=== PATIENT | male | born 1960 | race Caucasian/White ===

== ENCOUNTER 2020-04-10 14:18 | Outpatient (REF) | payer OTHER, SELFPAY ==
[2020-04-10 15:45] LABS: Creatinine Urine 82.85 mg/dL; Microalbum/Creatinine Ratio Ur 18.1 ug/mg cr
== END 2020-04-10 14:19 | disposition home or self-care (01) ==
LOC: HO.LNP 14:18
PROVIDERS: Visit Provider Family Medicine
DX: I10 Essential (primary) hypertension (principal)
CPT/HCPCS: 82043

== ENCOUNTER 2020-07-11 11:01 | Outpatient (REF) | payer OTHER, SELFPAY ==
[2020-07-11 12:11] LABS: Creatinine Urine 258.55 mg/dL; Microalbum/Creatinine Ratio Ur 5.8 ug/mg cr
== END 2020-07-11 11:02 | disposition home or self-care (01) ==
LOC: HO.LNP 11:01
PROVIDERS: Visit Provider Family Medicine
DX: E11.65 Type 2 diabetes mellitus with hyperglycemia (principal); I10 Essential (primary) hypertension
CPT/HCPCS: 82043

== ENCOUNTER 2021-05-26 10:40 | Outpatient (REF) | payer OTHER, SELFPAY ==
[2021-05-26 14:25] LABS: Estimated Average Glucose 166 mg/dL; Hemoglobin A1c % 7.4 %
== END 2021-05-26 10:41 | disposition home or self-care (01) ==
LOC: HO.WFDLDS 10:40
PROVIDERS: Visit Provider Family Medicine
DX: R73.01 Impaired fasting glucose (principal)
CPT/HCPCS: 36415; 83036

== ENCOUNTER 2022-05-20 10:18 | Outpatient (REF) | payer OTHER, SELFPAY ==
[2022-05-20 11:44] LABS: Alanine Aminotransferase 25 U/L (0-40); Albumin Level 4.3 g/dL (3.5-5.0); Alkaline Phosphatase 66 U/L (39-117); Anion Gap 14 (12-20); Aspartate Amino Transferase 19 U/L (5-37); Bilirubin Total 1.2 mg/dL (0.0-1.0); Blood Urea Nitrogen 13 mg/dL (9-16); Calcium 9.2 mg/dL (8.4-10.2); Carbon Dioxide 30 mmol/L (22-29); Chloride 102 mmol/L (96-108); Estimated Glomerular Filt Rate > 60; Glucose Fasting 102 mg/dL (60-99); Potassium 3.9 mmol/L (3.3-5.1); Sodium 142 mmol/L (135-145); Total Protein 6.3 g/dL (6.5-8.0)
== END 2022-05-20 10:19 | disposition home or self-care (01) ==
LOC: HO.WFDLDS 10:18
PROVIDERS: Visit Provider Family Medicine
DX: Z00.00 Encounter for general adult medical examination without abnormal findings (principal)
CPT/HCPCS: 36415; 80053

== ENCOUNTER 2022-12-01 09:25 | Outpatient (AMB) | payer OTHER, SELFPAY ==
--- NOTE | 2022-12-01 09:37 | MHC.PC.OV ---
Vital Signs 12/01/22 09:38 Height 6 ft 1 in Weight 292 lb 8 oz BMI 38.6 BP 150/80 H Blood Pressure Location Lt brachial Position Sitting Respiration 13 Pulse 87 Pulse Source Pulse Oximeter Temp 98.2 F Temp Source Temporal Artery Scan Pulse Oximetry (%) 99 Oxygen Delivery Method Room Air Intake Visit Reasons: f/u hypertension Intake Note: Patient is concerned about him not losing weight. Patient states that insurance will only cover 90 day supplies for his medication. Complaint Coordinator Required: No Accompanied by: Self / Same As Patient Allergies No Known Drug Allergies Allergy (Unknown, Verified 12/01/22 09:46) UNKNOWN Medication List - Last Reconciled 12/01/22 by Antonio Wang MD amlodipine 10 mg PO DAILY 30 days glipizide ER 10 mg PO DAILY 120 days insulin glargine (Lantus Solostar U-100 Insulin) 70 units (0.7 mL) subcut QPM 30 days lisinopril 40 mg (2 x 20 mg) PO DAILY 90 days omeprazole 20 mg PO DAILY pen needle, diabetic DX: E11.9 As directed 90 day supply Tobacco use date assessed: 12/01/22 Fall risk assessment: No Falls in past year Last assessed Fall Risk: 12/01/22 Dental Screening Dental Screen Date: 12/01/22 Did you have a dental visit in the last 12 months?: No Did you have a dental problem in the last 6 months where you did not have access to dental care?: No Was dental information given to patient?: Patient has dentist HPI f/u hypertension HPI Details 62 y/o male presents to f/u hypertension and diabetes. Blood pressure today 150/80. He is on amlodipine 10mg and lisinopril 40mg daily. A1c today 12/01/22 is 6.1%. He is on glipizide 10mg and insulin glargine 70 units. [facility] Surgical History History of anterior cruciate ligament surgery History of appendectomy History of surgery Family History (Updated 12/01/22 @ 09:51 by Lara Osorio MA) Father Myocardial infarction HTN (hypertension) CVD (cardiovascular disease) Mother CVD (cardiovascular disease) Brother HTN (hypertension) Diabetes mellitus Social History Housing: House Patient Tobacco Use Status: Never used Tobacco e-Cigarette/Vaping Use: Never Used Second Hand Smoke Exposure: No service: No Current occupational status: retired Cognitive needs: No Hearing needs: No Vision needs: Yes Review of Systems Const Denies chills, Denies fatigue, Denies fever(s), Denies headache(s) and Denies weakness ENT Denies dizziness and Denies headache(s) Card Denies chest pain, Denies lightheadedness, Denies dyspnea and Denies other (Palpitations) Resp Denies cough, Denies dyspnea, Denies wheezing and Denies other ( shortness of breath) Musc Denies numbness and Denies tingling Neuro Denies dizziness, Denies headache(s), Denies numbness, Denies tingling, Denies paresthesias and Denies weakness Psych Denies anxiety and Denies depression Endo Denies fatigue Aller/Immun Denies wheezing Physical exam (Primary Care) Vital Signs: Last Vital Signs Temp 98.2 F 12/01/22 09:38 Pulse 87 12/01/22 09:38 Resp 13 12/01/22 09:38 BP 150/80 H 12/01/22 09:38 Pulse Ox 99 12/01/22 09:38 Oxygen Delivery Method Room Air 12/01/22 09:38 BMI result Body Mass Index 38.6 Tobacco/Smoking Status: Tobacco use Status Tobacco use date assessed 12/01/22 12/01/22 09:51 Patient Tobacco Use Status Never used Tobacco 12/01/22 09:51 e-Cigarette/Vaping Use Never Used 12/01/22 09:51 Const General: no acute distress and well developed Nutritional Appearance: well nourished Orientation/consciousness: patient oriented x3 HENMT Head: Yes normocephalic and Yes atraumatic Eyes General: appearance normal, both eyes and all related structures Pupils: Equal, round and reactive pupils present EOM: EOMs intact bilaterally Resp Effort & Inspection: normal respiratory effort Auscultation: clear to auscultation bilaterally Cardio Rate: regular rate Rhythm: regular rhythm Heart sounds: S1 normal heart sound present, S2 normal heart sound present, no gallops, no murmurs and no rubs Neuro General: patient oriented x3 and gait normal Cranial nerves: Yes Equal, round and reactive pupils present Psych Affect: normal affect Assessment and Plan Assessment & Plan (1) Essential hypertension: Code(s): I10 - Essential (primary) hypertension Plan: Blood pressure still poorly controlled. Goal is less than 140/90 Adding metoprolol ER 25 mg daily and continuing amlodipine and lisinopril; he had been on hydrochlorothiazide but this caused palpitations. Encouraged weight loss through diet and exercise (2) Diabetes type 2, controlled: Code(s): E11.9 - Type 2 diabetes mellitus without complications Plan: A1c 6.1% is good control. Goal is less than 7.0% Continue glipizide and Lantus as prescribed Encouraged diabetic diet and weight loss (3) Obesity (BMI 30-39.9): Code(s): E66.9 - Obesity, unspecified Plan: Encouraged weight loss Encouraged decrease portion sizes and regular exercise at least 3-4 times per week. Orders: Orders AMB Hemoglobin A1c Today Z13.9 - Encounter for screening, unspecified Medications: New metoprolol succinate ER 25 mg PO DAILY 30 tabs 2RF 30 days Coding Level of Care Code Est Pt Level 4 (99541) Diagnoses Essential hypertension I10 Diabetes type 2, controlled E11.9 Obesity (BMI 30-39.9) E66.9
[2022-12-01 09:38] VITALS: BP 150/80; PULSE 87; RESP 13; TEMP 36.8; O2SAT 99; BMI 38.6
== END 2022-12-01 10:51 | disposition home or self-care (01) ==
PROVIDERS: Visit Provider Family Medicine
DX: E11.9 Type 2 diabetes mellitus without complications (principal)
CPT/HCPCS: 83036; 99214

== ENCOUNTER 2023-01-20 14:32 | Outpatient (AMB) | payer OTHER, SELFPAY ==
[2023-01-20 14:35] VITALS: BP 148/82; PULSE 71; O2SAT 96; BMI 37.9
--- NOTE | 2023-01-20 14:35 | A.OFFPC_ITS ---
Vital Signs 01/20/23 14:35 Height 6 ft 1 in Weight 287 lb BMI 37.9 BP 148/82 H Blood Pressure Location Lt brachial Pulse 71 Pulse Source Pulse Oximeter Pulse Oximetry (%) 96 Oxygen Delivery Method Room Air Intake Visit Reasons: f/u hypertension Intake Note: Patient is here for follow up on hypertension. Allergies No Known Drug Allergies Allergy (Unknown, Verified 01/20/23 14:38) UNKNOWN Tobacco use date assessed: 01/20/23 Dental Screening Dental Screen Date: 01/20/23 Did you have a dental visit in the last 12 months?: No Did you have a dental problem in the last 6 months where you did not have access to dental care?: No Was dental information given to patient?: Patient has dentist HPI f/u hypertension HPI Details 62 y/o male presents to f/u hypertension. Had been on 3 medications but hydrochlorothiazide was discontinued due to palpitations. Continuing his amlodipine and lisinopril and adding metoprolol ER 25 mg daily. Blood pressure today 148/82. He is on amlodipine 10mg, lisinopril 40mg and meotprolol 25mg daily. He notes his pulse at home have been in the 60s. Pulse today 71. A1c today 01/20/23 is 6.7%. He is on glipizide 10mg and insulin glargine 70 units. Pt reports his has been noticing he has been more irritable. [facility] Surgical History History of anterior cruciate ligament surgery History of appendectomy History of surgery Family History (Updated 12/01/22 @ 09:51 by Lara Osorio MA) Father Myocardial infarction HTN (hypertension) CVD (cardiovascular disease) Mother CVD (cardiovascular disease) Brother HTN (hypertension) Diabetes mellitus Social History Housing: House Patient Tobacco Use Status: Never used Tobacco e-Cigarette/Vaping Use: Never Used Second Hand Smoke Exposure: No service: No Current occupational status: retired Cognitive needs: No Hearing needs: No Vision needs: Yes Questionnaire PHQ-9 Over the last 2 weeks, how often have you been bothered by any of the following problems? 1. Little interest or pleasure in doing things: more than half the days 2. Feeling down, depressed, or hopeless: not at all 3. Trouble falling or staying asleep, or sleeping too much: nearly every day 4. Feeling tired or having little energy: nearly every day 5. Poor appetite or overeating: nearly every day 6. Feeling bad about yourself - or that you are a failure or have let yourself or your family down: not at all 7. Trouble concentrating on things, such as reading the newspaper or watching television: nearly every day 8. Moving or speaking so slowly that other people could have noticed. Or the opposite - being so fidgety or restless that you have been moving around a lot more than usual: not at all 9. Thoughts that you would be better off or of hurting yourself in some way: not at all Total score: 14 Source: Developed by Drs. Alexis Morel, Selma Redman, Ray Villanueva and colleagues, with an educational bruno from [employer]. Thrive Questionnaire I am a: Patient What is your living situation today?: I have a steady place to live Within the past 12 months, did the food you bought not last and you didn't have the money to get more?: Never true Within the past 12 months, did you worry whether your food would run out before you got money to buy more?: Never true Do you have trouble paying for medicines?: No Do you have trouble getting transportation to medical appointments?: No Do you have trouble paying your heating and electricity bill?: No Do you have trouble taking care of your child, family member or friend?: No Do you have trouble with day-to-day activities such as bathing, preparing meals, shopping, managing finances, etc.?: Yes Are you currently unemployed and looking for a job?: No Are you interested in more education?: No AUDIT C Alcohol Use Questionnaire (AUDIT-C) 1. How often do you have a drink containing alcohol?: 2-3 times a week 2. How many drinks containing alcohol do you have on a typical day when you are drinking?: 3 or 4 3. How often do you have six or more drinks on one occasion?: Monthly Total Score: 6 SANG-7 AMB Questionnaire ASNG-7 Date SANG - 7 assessed: 01/20/23 Feeling nervous, anxious, or on edge: 0 = Not at all Not being able to stop or control worryin = Not at all Worrying too much about different things: 0 = Not at all Trouble relaxin = Not at all Being so restless that it is hard to sit still: 0 = Not at all Becoming easily annoyed or irritable: 1 = Several days Feeling afraid as if something awful might happen: 0 = Not at all Total SANG-7 score (0-4 normal; 5-9 mild; 10-14 moderate; 15-21 severe): 1 Source: Developed by Drs. Alexis Morel, Selma Redman, Ray Villanueva and colleagues, with an educational bruno from [employer]. Review of Systems Const Denies chills, Denies fatigue, Denies fever(s), Denies headache(s) and Denies weakness ENT Denies dizziness and Denies headache(s) Card Denies chest pain, Denies lightheadedness, Denies dyspnea and Denies other (Palpitations) Resp Denies cough, Denies dyspnea, Denies wheezing and Denies other ( shortness of breath) Musc Denies numbness and Denies tingling Neuro Denies dizziness, Denies headache(s), Denies numbness, Denies tingling, Denies p aresthesias and Denies weakness Psych Denies anxiety and Denies depression Endo Denies fatigue Aller/Immun Denies wheezing Physical exam (Primary Care) Vital Signs: Last Vital Signs Pulse 71 01/20/23 14:35 BP 148/82 H 01/20/23 14:35 Pulse Ox 96 01/20/23 14:35 Oxygen Delivery Method Room Air 01/20/23 14:35 BMI result Body Mass Index 37.9 Tobacco/Smoking Status: Tobacco use Status Tobacco use date assessed 01/20/23 01/20/23 14:39 Patient Tobacco Use Status Never used Tobacco 01/20/23 14:39 e-Cigarette/Vaping Use Never Used 01/20/23 14:39 PHQ-9: PHQ-9 Score PHQ-9: Total score 14 01/20/23 14:55 Const General: no acute distress and well developed Nutritional Appearance: well nourished Orientation/consciousness: patient oriented x3 HENMT Head: Yes normocephalic and Yes atraumatic Eyes General: appearance normal, both eyes and all related structures Pupils: Equal, round and reactive pupils present EOM: EOMs intact bilaterally Resp Effort & Inspection: normal respiratory effort Auscultation: clear to auscultation bilaterally Cardio Rate: regular rate Rhythm: regular rhythm Heart sounds: S1 normal heart sound present, S2 normal heart sound present, no gallops, no murmurs and no rubs Neuro General: patient oriented x3 and gait normal Cranial nerves: Yes Equal, round and reactive pupils present Psych Affect: normal affect Results AMB Hemoglobin A1c AMB Hemoglobin A1c 6.7 % Last Edit by Ena Serna CMA on 01/20/23 15:08 Assessment and Plan Assessment & Plan (1) Essential hypertension: Code(s): I10 - Essential (primary) hypertension Plan: Blood pressure is still poorly controlled. Goal is less than 140/90 Will increase metoprolol and continue lisinopril and amlodipine as prescribed Patient has symptoms of sleep apnea and this may be an underlying cause for his hypertension. (2) Diabetes type 2, controlled: Code(s): E11.9 - Type 2 diabetes mellitus without complications Plan: A1c crept up from 6.5-6.7%. Still at goal of less than 7.0% Continue current medication regimen Work at a diet lower in sugars and starches Encouraged exercise (3) Anxiety: Code(s): F41.9 - Anxiety disorder, unspecified Plan: Primarily irritability We discussed relaxation techniques and he can look these up on the Internet We discussed SSRI medications and he will research this and think about it Patient seems to have sleep apnea and this may be a cause of increased anxiety/irritability (4) Sleep apnea: Code(s): G47.30 - Sleep apnea, unspecified Plan: Witnessed apneic events and snoring. Also some changes in memory. Also daytime sleepiness and difficult to treat hypertension. Referred to Sleep Medicine (5) Obesity (BMI 30-39.9): Code(s): E66.9 - Obesity, unspecified Plan: Encouraged weight loss (6) Bilateral knee pain: Code(s): M25.561 - Pain in right knee; M25.562 - Pain in left knee Plan: Bilateral knee pain, left worse than right Patient notes this is longstanding and he has seen an operator specialist communications in the past Referred to Ortho Can use a brace on his left knee when he needs extra support such as during exercise Orders: Orders AMB Hemoglobin A1c Today Z13.9 - Encounter for screening, unspecified Referrals Sleep Medicine Referral G47.30 - Sleep apnea, unspecified Orthopedics Referral M25.561 - Pain in right knee, M25.562 - Pain in left knee Medications: Changed From metoprolol succinate ER 25 mg PO DAILY 30 days 30 tabs 2RF To metoprolol succinate ER 50 mg (2 x 25 mg) PO DAILY 60 tabs 2RF 30 days Coding Level of Care Code Est Pt Level 4 (64351) Diagnoses Essential hypertension I10 Diabetes type 2, controlled E11.9 Anxiety F41.9 Sleep apnea G47.30 Obesity (BMI 30-39.9) E66.9 Bilateral knee pain M25.561; M25.562
== END 2023-01-20 15:34 | disposition home or self-care (01) ==
PROVIDERS: PCP Family Medicine; Visit Provider Family Medicine
DX: I10 Essential (primary) hypertension (principal); E11.9 Type 2 diabetes mellitus without complications; E66.9 Obesity, unspecified; Z68.37 Body mass index [BMI] 37.0-37.9, adult; F41.9 Anxiety disorder, unspecified; G47.30 Sleep apnea, unspecified; M25.561 Pain in right knee; M25.562 Pain in left knee
CPT/HCPCS: 83036; 99214

== ENCOUNTER 2023-02-24 06:37 | Outpatient (REF) | payer OTHER, SELFPAY | END 2023-02-24 06:38 | disposition home or self-care (01) | LOC: HO.HOSX 06:37 | PROVIDERS: Visit Provider Orthopaedic Surgery | DX: M25.561 Pain in right knee (principal); M25.562 Pain in left knee | CPT/HCPCS: 73562 ==

== ENCOUNTER 2023-02-24 08:43 | Outpatient (AMB) | payer OTHER, SELFPAY ==
--- NOTE | 2023-02-24 08:50 | MHC.OFFVIS ---
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 Patient reports his left knee is worse than the right knee. He states having ongoing pain for many years. Patient reports having anterior cruciate ligament reconstructive surgery on his left knee [place] [address] Deleon. Approximately 10 years later he underwent left knee arthroscopic surgery. He states that his left knee will give out several times per day. He has had cortisone injections which gave him minimal relief. He also reports intermittent discomfort in his right knee. He denies any mechanical symptoms in his right knee. He has done physical therapy exercises which aggravated his symptoms. Allergies No Known Drug Allergies Allergy (Unknown, Verified 02/24/23 08:50) UNKNOWN Medication List - Last Reconciled 02/24/23 by Marlon Lara MD amlodipine 10 mg PO DAILY 30 days glipizide ER 10 mg PO DAILY 120 days insulin glargine (Lantus Solostar U-100 Insulin) 70 units (0.7 mL) subcut QPM 30 days lisinopril 40 mg (2 x 20 mg) PO DAILY 90 days metoprolol succinate ER 50 mg (2 x 25 mg) PO DAILY 30 days omeprazole 20 mg PO DAILY pen needle, diabetic DX: E11.9 As directed 90 day supply [facility] Surgical History History of anterior cruciate ligament surgery History of appendectomy History of surgery Family History (Updated 12/01/22 @ 09:51 by Lara Osorio MA) Father Myocardial infarction HTN (hypertension) CVD (cardiovascular disease) Mother CVD (cardiovascular disease) Brother HTN (hypertension) Diabetes mellitus Social History Housing: House Patient Tobacco Use Status: Never used Tobacco e-Cigarette/Vaping Use: Never Used Second Hand Smoke Exposure: No service: No Current occupational status: retired Cognitive needs: No Hearing needs: No Vision needs: Yes Physical Exam Vital Signs: BMI result Body Mass Index 37.9 Const Other: Well-nourished well-developed very friendly male awake alert and oriented x3 in no acute distress Extrem Other: Bilateral lower extremity examination shows good capillary refill, no skin lesions noted, normal sensation light touch Right knee examination shows a minimal effusion, minimal crepitus with range of motion, negative Maicol's test, no instability Left knee examination shows that the surgical incisions are well healed, no erythema, palpable crepitus with range of motion, pain with range of motion, range of motion from -3 degrees to 120 degrees, no instability Results Reviewed Results Reviewed: X-rays of the patient's right knee show mild diffuse joint space narrowing, no acute bony abnormalities X-rays of the patient's left knee show 1 screw in the distal femur and 1 screw in the proximal tibia consistent with his prior anterior cruciate ligament reconstructive surgery, moderate to severe medial joint space narrowing, subchondral sclerosis, no acute bony abnormalities Assessment & Plan Assessment & Plan (1) Right knee pain: Code(s): M25.561 - Pain in right knee Plan: Mr. Warren presents with left knee pain and mechanical symptoms due to degenerative joint disease. I had a lengthy discussion with the patient regarding the treatment options. The patient was fitted with a knee brace to help give him stability. I do find that the knee brace is a medical necessity to help prevent falls. The patient also has right knee discomfort most likely due to early degenerative joint disease. We will hold off on an injection at this time. Activity modifications were discussed at length with the patient. He will follow up with me on an as-needed basis should his symptoms not plateau at an unacceptable level over the next few months. Feel free to call me at any time should questions regarding his orthopedic management arise. Thank very much for asking me to see this very friendly gentleman. I spent 22 minutes in reviewing the patient's records and imaging studies, seeing the patient and documenting in the medical record. (2) Left knee pain: Code(s): M25.562 - Pain in left knee Orders: Orders XR knee RT 3V Today M25.561 - Pain in right knee XR knee LT 3V Today M25.562 - Pain in left knee Coding Level of Care Code New Pt Level 2 (76414) Diagnoses Right knee pain M25.561 Left knee pain M25.562
[2023-02-24 09:04] VITALS: BMI 37.9
== END 2023-02-24 09:24 | disposition home or self-care (01) ==
PROVIDERS: PCP Family Medicine; Visit Provider Orthopaedic Surgery
DX: M25.561 Pain in right knee (principal); M25.562 Pain in left knee
CPT/HCPCS: 99202

== ENCOUNTER 2023-02-25 09:19 | Outpatient (AMB) | payer OTHER, SELFPAY ==
--- NOTE | 2023-02-25 09:21 | MHC.PC.OV ---
Vital Signs 02/25/23 09:22 Height 6 ft 1 in Weight 292 lb 2 oz BMI 38.5 BP 140/78 H Blood Pressure Location Lt brachial Position Sitting Pulse 75 Pulse Source Pulse Oximeter Pulse Oximetry (%) 95 Oxygen Delivery Method Room Air Intake Visit Reasons: f/u hypertension Intake Note: Patient is following up on hypertension today. Patient is requesting refills on Lantus, lisinopril, and amlodipine, Metoprolol and Glipizide. Allergies No Known Drug Allergies Allergy (Unknown, Verified 02/25/23 09:26) UNKNOWN Tobacco use date assessed: 02/25/23 Last assessed Fall Risk: 02/25/23 Dental Screening Dental Screen Date: 02/25/23 Did you have a dental visit in the last 12 months?: No Did you have a dental problem in the last 6 months where you did not have access to dental care?: No Was dental information given to patient?: Patient has dentist HPI f/u hypertension HPI Details 62 y/o male presents to f/u hypertension. Blood pressure today 140/78. He is on lisinopril 40mg, amlodipine 10mg and metoprolol 50mg daily. Pt reports he describes his anxiety more as apathy. Pt reports ankle pain and would like a referral to orthopedics. [facility] Medical History (Updated 02/25/23 @ 10:23 by Tay Bhatti) Left ankle pain Surgical History History of surgery History of anterior cruciate ligament surgery History of appendectomy Family History Father Myocardial infarction HTN (hypertension) CVD (cardiovascular disease) Mother CVD (cardiovascular disease) Brother HTN (hypertension) Diabetes mellitus Social History Housing: House Patient Tobacco Use Status: Never used Tobacco e-Cigarette/Vaping Use: Never Used Second Hand Smoke Exposure: No service: No Current occupational status: retired Cognitive needs: No Hearing needs: No Vision needs: Yes Questionnaire SANG-7 AMB Questionnaire SANG-7 Date SANG - 7 assessed: 01/20/23 Source: Developed by Drs. Alexis Morel, Selma B.W. Ray Redman and colleagues, with an educational bruno from [employer]. Review of Systems Const Denies chills, Denies fatigue, Denies fever(s), Denies headache(s) and Denies weakness ENT Denies dizziness and Denies headache(s) Card Denies dyspnea Resp Denies cough, Denies dyspnea, Denies wheezing and Denies other (shortness of breath) Musc Denies numbness and Denies tingling Neuro Denies dizziness, Denies headache(s), Denies numbness, Denies tingling and Denies weakness Psych Denies anxiety and Denies depression Endo Denies fatigue Aller/Immun Denies wheezing Physical exam (Primary Care) Vital Signs: Last Vital Signs Pulse 75 02/25/23 09:22 BP 140/78 H 02/25/23 09:22 Pulse Ox 95 02/25/23 09:22 Oxygen Delivery Method Room Air 02/25/23 09:22 BMI result Body Mass Index 38.5 Tobacco/Smoking Status: Tobacco use Status Tobacco use date assessed 02/25/23 02/25/23 09:36 Patient Tobacco Use Status Never used Tobacco 02/25/23 09:26 e-Cigarette/Vaping Use Never Used 02/25/23 09:26 Const General: well developed; No acute distress Nutritional Appearance: obese Orientation/consciousness: patient oriented x3 HENMT Head: Yes normocephalic and Yes atraumatic Eyes General: appearance normal, both eyes and all related structures Pupils: Equal, round and reactive pupils present EOM: EOMs intact bilaterally Resp Effort & Inspection: normal respiratory effort Neuro General: patient oriented x3 and gait normal Cranial nerves: Yes Equal, round and reactive pupils present Psych Affect: normal affect Assessment and Plan Assessment & Plan (1) Essential hypertension: Code(s): I10 - Essential (primary) hypertension Plan: Blood?pressure?is?still?too?high.??Goal?is?less?than?140/90 Increase?metoprolol?from?50?mg?daily?to?75?mg?daily. (2) Anxiety: Code(s): F41.9 - Anxiety disorder, unspecified Plan: Patient?has?some?anxiety?and?possibly?some?depression. Encouraged?exercise?and?activities?outside?of?his?home We?can?follow-up?on?this (3) Sleep apnea: Code(s): G47.30 - Sleep apnea, unspecified Plan: Has?an?appointment?in?mid?March?with?sleep?medicine Follow-up?with?sleep?medicine (4) Left ankle pain: Code(s): M25.572 - Pain in left ankle and joints of left foot Plan: History?of?arthritis?and?bilateral?knee?pain. Now?has?left?ankle?pain?and?would?like?a?referral?to?Ortho Referral?made Orders: Referrals Orthopedics Referral M25.572 - Pain in left ankle and joints of left foot Medications: Changed From metoprolol succinate ER 50 mg (2 x 25 mg) PO DAILY 30 days 60 tabs 2RF To metoprolol succinate ER 75 mg (3 x 25 mg) PO DAILY 90 tabs 2RF 30 days Coding Level of Care Code Est Pt Level 4 (25731) Diagnoses Essential hypertension I10 Anxiety F41.9 Sleep apnea G47.30 Left ankle pain M25.572
[2023-02-25 09:22] VITALS: BP 140/78; PULSE 75; O2SAT 95; BMI 38.5
== END 2023-02-25 10:27 | disposition home or self-care (01) ==
PROVIDERS: PCP Family Medicine; Visit Provider Family Medicine
DX: I10 Essential (primary) hypertension (principal); F41.9 Anxiety disorder, unspecified; G47.30 Sleep apnea, unspecified; M25.572 Pain in left ankle and joints of left foot
CPT/HCPCS: 99214

== ENCOUNTER 2023-06-28 09:26 | Outpatient (AMB) | payer MEDICARE, SELFPAY ==
[2023-06-28 09:36] VITALS: BP 162/77; PULSE 86; O2SAT 96; BMI 38.4
--- NOTE | 2023-06-28 09:36 | A.OFFPC_ITS ---
Vital Signs 06/28/23 09:36 Height 6 ft 2 in Weight 299 lb 8 oz BMI 38.4 BP 162/77 H Blood Pressure Location Lt brachial Position Sitting Pulse 86 Pulse Source Pulse Oximeter Pulse Oximetry (%) 96 Oxygen Delivery Method Room Air Intake Visit Reasons: f/u hypertension Intake Note: Patient is here for follow up on hypertension, and A1C. Allergies No Known Drug Allergies Allergy (Unknown, Verified 06/28/23 09:38) UNKNOWN Medication List - Last Reconciled 06/28/23 by Antonio Wang MD amlodipine 10 mg PO DAILY 90 days glipizide ER 10 mg PO DAILY 90 days insulin glargine (Lantus Solostar U-100 Insulin) 70 units (0.7 mL) subcut QPM 90 days lisinopril 40 mg (2 x 20 mg) PO DAILY 90 days metoprolol succinate ER 75 mg (3 x 25 mg) PO DAILY 90 days omeprazole 20 mg PO DAILY 30 days pen needle, diabetic DX: E11.9 As directed 90 day supply Tobacco use date assessed: 06/28/23 Fall risk assessment: No Falls in past year Last assessed Fall Risk: 06/28/23 Dental Screening Dental Screen Date: 06/28/23 Did you have a dental visit in the last 12 months?: No Did you have a dental problem in the last 6 months where you did not have access to dental care?: No Was dental information given to patient?: Patient has dentist HPI f/u hypertension HPI Details 43 y/o male presents to f/u hypertension . Increased his metoprolol from 50mg daily to 75mg daily. Blood pressure today 162/77. He is on amlodipine 10mg, lisinopril 40mg, metoprolol 75mg daily. A1c today 06/28/23 7.5%. He is on glipizide 10mg, insulin glargine 70 units. [facility] Medical History Left ankle pain Surgical History History of surgery History of anterior cruciate ligament surgery History of appendectomy Family History Father Myocardial infarction HTN (hypertension) CVD (cardiovascular disease) Mother CVD (cardiovascular disease) Brother HTN (hypertension) Diabetes mellitus Social History Housing: House Patient Tobacco Use Status: Never used Tobacco e-Cigarette/Vaping Use: Never Used Second Hand Smoke Exposure: No service: No Current occupational status: retired Cognitive needs: No Hearing needs: No Vision needs: Yes Questionnaire PHQ-9 Over the last 2 weeks, how often have you been bothered by any of the following problems? 1. Little interest or pleasure in doing things: several days 2. Feeling down, depressed, or hopeless: not at all 3. Trouble falling or staying asleep, or sleeping too much: nearly every day 4. Feeling tired or having little energy: nearly every day 5. Poor appetite or overeating: nearly every day 6. Feeling bad about yourself - or that you are a failure or have let yourself or your family down: not at all 7. Trouble concentrating on things, such as reading the newspaper or watching television: several days 8. Moving or speaking so slowly that other people could have noticed. Or the opposite - being so fidgety or restless that you have been moving around a lot more than usual: not at all 9. Thoughts that you would be better off or of hurting yourself in some way: not at all Total score: 11 Source: Developed by Drs. Alexis Morel, Selma Redman, Ray Villanueva and colleagues, with an educational bruno from [employer]. Thrive Questionnaire Date Thrive assessed: 06/28/23 I am a: Patient What is your living situation today?: I have a steady place to live Within the past 12 months, did the food you bought not last and you didn't have the money to get more?: Never true Within the past 12 months, did you worry whether your food would run out before you got money to buy more?: Never true Do you have trouble paying for medicines?: No Do you have trouble getting transportation to medical appointments?: No Do you have trouble paying your heating and electricity bill?: No Do you have trouble taking care of your child, family member or friend?: No Do you have trouble with day-to-day activities such as bathing, preparing meals, shopping, managing finances, etc.?: No Are you currently unemployed and looking for a job?: No Are you interested in more education?: No THRIVE Score: 0 AUDIT C Alcohol Use Questionnaire (AUDIT-C) 1. How often do you have a drink containing alcohol?: 2-3 times a week 2. How many drinks containing alcohol do you have on a typical day when you are drinking?: 7 to 9 3. How often do you have six or more drinks on one occasion?: Weekly Total Score: 9 SANG-7 AMB Questionnaire SANG-7 Date SANG - 7 assessed: 06/28/23 Feeling nervous, anxious, or on edge: 0 = Not at all Not being able to stop or control worryin = Not at all Worrying too much about different things: 0 = Not at all Trouble relaxin = Not at all Being so restless that it is hard to sit still: 0 = Not at all Becoming easily annoyed or irritable: 0 = Not at all Feeling afraid as if something awful might happen: 0 = Not at all Total SANG-7 score (0-4 normal; 5-9 mild; 10-14 moderate; 15-21 severe): 0 Source: Developed by Drs. Alexis Morel, Selma Redman, Ray Villanueva and colleagues, with an educational bruno from [employer]. Review of Systems Const Denies chills, Denies fatigue, Denies fever(s), Denies headache(s) and Denies weakness ENT Denies dizziness and Denies headache(s) Card Denies dyspnea Resp Denies cough, Denies dyspnea, Denies wheezing and Denies other (shortness of breath) Musc Denies numbness and Denies tingling Neuro Denies dizziness, Denies headache(s), Denies numbness, Denies tingling and Denies weakness Psych Denies anxiety and Denies depression Endo Denies fatigue Aller/Immun Denies wheezing Physical exam (Primary Care) Vital Signs: Last Vital Signs Pulse 86 06/28/23 09:36 BP 162/77 H 06/28/23 09:36 Pulse Ox 96 06/28/23 09:36 Oxygen Delivery Method Room Air 06/28/23 09:36 BMI result Body Mass Index 38.4 Tobacco/Smoking Status: Tobacco use Status Tobacco use date assessed 06/28/23 06/28/23 09:47 Patient Tobacco Use Status Never used Tobacco 06/28/23 09:37 e-Cigarette/Vaping Use Never Used 06/28/23 09:37 PHQ-9: PHQ-9 Score PHQ-9: Total score 11 06/28/23 09:47 Thrive Assessment: Date of Thrive Assessment Date Thrive assessed 06/28/23 06/28/23 09:47 Const General: well developed; No acute distress Nutritional Appearance: well nourished Orientation/consciousness: patient oriented x3 HENMT Head: Yes normocephalic and Yes atraumatic Eyes General: appearance normal, both eyes and all related structures Pupils: Equal, round and reactive pupils present EOM: EOMs intact bilaterally Resp Effort & Inspection: normal respiratory effort Neuro General: patient oriented x3 and gait normal Cranial nerves: Yes Equal, round and reactive pupils present Psych Affect: normal affect Assessment and Plan Assessment & Plan (1) Essential hypertension: Code(s): I10 - Essential (primary) hypertension Plan: There?is?too?high.??Patient?says?that?this?is?temporary?due?to?hav ing?some?drinks?last?night?which?affects?his?blood?pressure. We?discussed?that?his?blood?pressure?was?too?high?at?his?last?visit?also.??Decli isha?medication?changes?at?this?time. Had?tried?adding?hydro chlorothiazide?to?his?medication?regimen?but?this?caused?palpitations Could?consider?increasing?his?metoprolol?if?still?high. (2) Diabetes type 2, controlled: Code(s): E11.9 - Type 2 diabetes mellitus without complications Plan: Patient?is?taking?insulin?glargine?70?units?daily?as?well?as?glipizide. A1c?7.5?today. He?has?gained?considerable?weight?again He?declines?changes?to?his?medication?regimen?today He?wants?to?work?at?weight?loss?and?exercise. Strongly?encouraged?weight?loss?t hrough?diet,?decrease?portion?sizes?and?consistent?exercise. Has?follow-up?in?May We?discussed?that?if?his?blood?sugars?are?not?significantly?improved,?we?should? seriously?consider?a?adjusting?his?medication?regimen. (3) Bilateral knee pain: Code(s): M25.561 - Pain in right knee; M25.562 - Pain in left knee Plan: Patient?has?bilateral?knee?osteoarthritis,?left?worse?than?right. Difficulty?walking?more?than?200?ft?without?pain Will?give?him?a?handicap?placard.??If?this?continues?to?wors en,?will?discuss?using?a?cane Orders: Orders AMB Hemoglobin A1c Today Z13.9 - Encounter for screening, unspecified Coding Level of Care Code Est Pt Level 4 (63134) Diagnoses Essential hypertension I10 Diabetes type 2, controlled E11.9 Bilateral knee pain M25.561; M25.562
== END 2023-06-28 10:36 | disposition home or self-care (01) ==
PROVIDERS: PCP Family Medicine; Visit Provider Family Medicine
DX: I10 Essential (primary) hypertension (principal); E11.9 Type 2 diabetes mellitus without complications; M25.561 Pain in right knee; M25.562 Pain in left knee
CPT/HCPCS: 99214

== ENCOUNTER 2023-10-14 08:51 | Outpatient (AMB) | payer MEDICARE, SELFPAY ==
[2023-10-14 08:56] VITALS: BP 128/70; PULSE 78; O2SAT 97; BMI 38.4
--- NOTE | 2023-10-14 08:56 | MHC.PC.OV ---
Vital Signs 10/14/23 08:56 Height 6 ft 2 in Weight 299 lb BMI 38.4 BP 128/70 Blood Pressure Location Lt brachial Position Sitting Pulse 78 Pulse Source Pulse Oximeter Pulse Oximetry (%) 97 Oxygen Delivery Method Room Air Intake Visit Reasons: extended exam and labs Intake Note: Patient is here for extended exam and labs. He states he has has bilateral foot swelling, feels it may be Amlodipine. Allergies No Known Drug Allergies Allergy (Unknown, Verified 10/14/23 08:58) UNKNOWN Medication List - Last Reconciled 10/14/23 by Antonio Wang MD amlodipine 10 mg PO DAILY 90 days glipizide ER 10 mg PO DAILY 90 days insulin glargine (Lantus Solostar U-100 Insulin) 70 units (0.7 mL) subcut QPM 90 days lisinopril 40 mg (2 x 20 mg) PO DAILY 90 days metoprolol succinate ER 75 mg (3 x 25 mg) PO DAILY 90 days omeprazole 20 mg PO DAILY 30 days pen needle, diabetic DX: E11.9 As directed 90 day supply Tobacco use date assessed: 10/14/23 Fall risk assessment: No Falls in past year Last assessed Fall Risk: 10/14/23 Dental Screening Dental Screen Date: 10/14/23 Did you have a dental visit in the last 12 months?: No Did you have a dental problem in the last 6 months where you did not have access to dental care?: No Was dental information given to patient?: Patient has dentist HPI extended exam and labs HPI Details Patient?presents?for?extended?exam Had?been?concerned?about?his?blood?sugar?control?and?blood?pressure?control?at?last?visit. Today?blood?pressure?shows?good?control A1c?is?6.3%;?down?from?7.5% No?recent?labs PFSH Medical History Left ankle pain Surgical History History of surgery History of anterior cruciate ligament surgery History of appendectomy Family History Father Myocardial infarction HTN (hypertension) CVD (cardiovascular disease) Mother CVD (cardiovascular disease) Brother HTN (hypertension) Diabetes mellitus Son Substance abuse in family Social History Housing: House Patient Tobacco Use Status: Never used Tobacco e-Cigarette/Vaping Use: Never Used Second Hand Smoke Exposure: No service: No Current occupational status: retired Cognitive needs: No Hearing needs: No Vision needs: Yes Questionnaire Thrive Questionnaire Date Thrive assessed: 06/28/23 SANG-7 AMB Questionnaire SANG-7 Date SANG - 7 assessed: 06/28/23 Source: Developed by Drs. Alexis Morel, Selma Redman, Ray Villanueva and colleagues, with an educational bruno from [employer]. Review of Systems Neuro Denies Sensory deficit (Neuro) Physical exam (Primary Care) Vital Signs: Last Vital Signs Pulse 78 10/14/23 08:56 BP 128/70 10/14/23 08:56 Pulse Ox 97 10/14/23 08:56 Oxygen Delivery Method Room Air 10/14/23 08:56 BMI result Body Mass Index 38.4 Tobacco/Smoking Status: Tobacco use Status Tobacco use date assessed 10/14/23 10/14/23 09:03 Patient Tobacco Use Status Never used Tobacco 10/14/23 08:57 e-Cigarette/Vaping Use Never Used 10/14/23 08:57 Thrive Assessment: Date of Thrive Assessment Date Thrive assessed 06/28/23 10/14/23 08:57 Const General: no acute distress, well developed, alert and awake Nutritional Appearance: well nourished Orientation/consciousness: patient oriented x3 HENMT Head: Yes normocephalic and Yes atraumatic Ears: hearing grossly normal bilaterally and TM's normal bilaterally General nose exam: Normal external nose present and Normal nares present Mouth: Normal oral and palatal mucosa present and moist mucous membranes Teeth and gingiva: dentition normal Throat: Yes posterior oropharynx normal Eyes Pupils: Equal, round and reactive pupils present and Pupil accommodation reflex normal EOM: EOMs intact bilaterally Neck Neck: Yes normal visual inspection, Yes no lymphadenopathy and Yes trachea midline Thyroid: Thyroid normal Carotids: no bruits Lymphatic: no lymphadenopathy noted Chest Chest palpation & inspection: normal inspection of the chest Resp Effort & Inspection: normal respiratory effort Auscultation: clear to auscultation bilaterally Cardio Rate: regular rate Rhythm: regular rhythm Heart sounds: S1 normal heart sound present, S2 normal heart sound present, no gallops, no murmurs and no rubs Bruits: no abdominal aortic bruits and no carotid bruits GI Palpation (GI): No Abdominal aortic bruit present, Soft to palpation, nontender, No hepatosplenomegaly present and No Rebound tenderness present Auscultation: normal bowel sounds General: Yes no CVA tenderness Back/Spine/Pelvis Back: no CVA tenderness Cervical Spine: cervical ROM normal and No Cervical spine tenderness Thoracic/Lumbar Spine: thoraco-lumbar ROM normal, No pain with thoraco-lumbar ROM, No thoracic spinal tenderness and No lumbar spinal tenderness Skin Lesions: no lesions Rashes: no rashes Trauma: no lacerations or abrasions Wounds: no wounds Nails: normal Neuro General: patient oriented x3, gait normal and CN's II-XI intact bilaterally Cranial nerves: Yes Equal, round and reactive pupils present Cognition (Neuro): normal cognition Gait exam (Neuro): Normal gait present Motor exam (neuro): 5/5 motor strength present throughout Sensory Exam: No Sensory deficit (Neuro) Deep tendon reflexes (DTR's): Right patellar reflex intensity grade: 2+ and Left patellar reflex intensity grade: 2+ Extrem General: Yes normal to inspection and No edema Psych Appearance: grossly normal Affect: normal affect Attitude: cooperative Thought process: Normal thought process present Results AMB Hemoglobin A1c AMB Hemoglobin A1c 6.3 % Last Edit by Ena Serna CMA on 10/14/23 09:18 Results Reviewed Results Reviewed: Laboratory Last Values Hgb A1c (Clinic) 6.3 % (4.0-6.0) H 10/14/23 09:13 Assessment and Plan Assessment & Plan (1) Essential hypertension: Code(s): I10 - Essential (primary) hypertension Plan: Blood?pressure?is?well?controlled.??Goal?is?less?than?140/90 Continue?current?medications He?notes?mild?swelling?in?bilateral?feet?likely?from?amlodipine.??Advised?he?elevate?his?feet (2) Diabetes type 2, controlled: Code(s): E11.9 - Type 2 diabetes mellitus without complications Plan: A1c?6.3%?which?is?improved?from?7.5%?at?last?check.??Good?control.??Goal?is?less?than?7.0% Continue?current?medication?regimen Continue?diabetic?diet No?recent?eye?exam-will?refer (3) Obesity (BMI 30-39.9): Code(s): E66.9 - Obesity, unspecified Plan: Encouraged?decrease?portion?sizes?and?exercise Encouraged?weight?loss (4) Screening for prostate cancer: Code(s): Z12.5 - Encounter for screening for malignant neoplasm of prostate Plan: Check?PSA (5) Screening for colon cancer: Code(s): Z12.11 - Encounter for screening for malignant neoplasm of colon Plan: Patient?had?a?colonoscopy?at?age?53?any?says?this?was?normal.??He?declines?further?colonoscopies?but?agrees?to?a?Cologuard?test. Cologuard?test?or (6) Adult general medical exam: Code(s): Z00.00 - Encounter for general adult medical examination without abnormal findings Plan: 63-year-old?male?presents?for?an?extended?exam Encouraged?healthy?diet,?exercise?and?active?lifestyle Orders: Orders AMB Hemoglobin A1c Today Z13.9 - Encounter for screening, unspecified Complete Blood Count Auto Diff Today Z00.00 - Encounter for general adult medical examination without abnormal findings Lipid Panel Today Z00.00 - Encounter for general adult medical examination without abnormal findings Microalbumin, Random (w Creat) Today I10 - Essential (primary) hypertension TSH reflex Free T4 Today Z00.00 - Encounter for general adult medical examination without abnormal findings UA and rflx microscopic Today Z00.00 - Encounter for general adult medical examination without abnormal findings Prostate Specific Antigen Scr Today Z12.5 - Encounter for screening for malignant neoplasm of prostate Comprehensive [place]. Panel Fast Today Z00.00 - Encounter for general adult medical examination without abnormal findings Referrals Ophthalmology Referral E11.9 - Type 2 diabetes mellitus without complications Cologuard Test Z12.11 - Encounter for screening for malignant neoplasm of colon, Z12.12 - Encounter for screening for malignant neoplasm of rectum Coding Level of Care Code Est Pt Prev Care >65y(64043) Diagnoses Essential hypertension I10 Diabetes type 2, controlled E11.9 Obesity (BMI 30-39.9) E66.9 Screening for prostate cancer Z12.5 Screening for colon cancer Z12.11 Adult general medical exam Z00.00
== END 2023-10-14 10:14 | disposition home or self-care (01) ==
PROVIDERS: PCP Family Medicine; Visit Provider Family Medicine
DX: I10 Essential (primary) hypertension (principal); E11.9 Type 2 diabetes mellitus without complications; Z68.38 Body mass index [BMI] 38.0-38.9, adult; E66.9 Obesity, unspecified; Z12.5 Encounter for screening for malignant neoplasm of prostate; Z12.11 Encounter for screening for malignant neoplasm of colon
CPT/HCPCS: 83036; 99214

== ENCOUNTER 2023-10-14 09:59 | Outpatient (REF) | payer MEDICARE, SELFPAY ==
[2023-10-14 11:43] LABS: Appearance Urine Clear; Color Urine Yellow; Glucose Urine UA Negative (Negative); Leukocyte Esterase Urine Negative (Negative); Nitrite Urine Negative (Negative); PH 5.5 (5.0-9.0); Urine Blood Negative (Negative); Urine Ketones Negative (Negative); Urine Protein Negative (Neg-Trace)
[2023-10-14 11:48] LABS: MANUAL DIFF FLAG NO
[2023-10-14 11:54] LABS: Basophils Percent Auto 0.4 % (0-2); Eosinophils Absolute Auto 0.2 X10*3/uL (0.0-0.4); Eosinophils Percent Auto 2.5 % (0-4); Hematocrit 45.6 % (42.0-52.0); Hemoglobin 15.8 g/dl (14.0-18.0); Imm Gran Abs Auto 0.04 X10*3/uL (0.00-0.03); Imm Gran Pct Auto 0.5 % (0.0-0.4); Lymphocytes Absolute Auto 1.3 X10*3/uL (1.2-4.9); Lymphocytes Percent Auto 17.5 % (20-40); Mean Corpuscular HGB Conc 34.6 g/dl (31.0-36.0); Mean Corpuscular Hemoglobin 30.8 pg (27.0-33.0); Mean Corpuscular Volume 88.9 fL (80.0-98.0); Mean Platelet Volume 10.3 fL (9.4-12.4); Monocytes Absolute Auto 0.7 X10*3/uL (0.1-1.2); Neutrophils Absolute Auto 5.4 x10*3/uL (2.0-8.3); Neutrophils Percent Auto 70.1 % (45-73); Platelet Count 207 X10*3/uL (160-400); Red Blood Count 5.13 X10*6/uL (4.60-5.80); Red Cell Distribution Width 12.8 % (11.0-16.0); White Blood Count 7.7 X10*3/uL (4.8-10.8)
[2023-10-14 12:42] LABS: Alanine Aminotransferase 22 U/L (0-40); Albumin Level 4.3 g/dL (3.5-5.0); Alkaline Phosphatase 77 U/L (39-117); Anion Gap 11 (12-20); Aspartate Amino Transferase 16 U/L (5-37); Bilirubin Total 0.8 mg/dL (0.0-1.0); Blood Urea Nitrogen 13 mg/dL (9-16); Calcium 9.6 mg/dL (8.4-10.2); Carbon Dioxide 29 mmol/L (22-29); Chloride 108 mmol/L (96-108); Cholesterol 206 mg/dL (<200); Estimated Glomerular Filt Rate > 60; Glucose Fasting 162 mg/dL (60-99); HDL Cholesterol 46 mg/dL (>40); LDL Cholesterol Calculated 139 mg/dL (<100); Potassium 4.2 mmol/L (3.3-5.1); Sodium 144 mmol/L (135-145); Total Protein 6.8 g/dL (6.5-8.0); Triglycerides 107 mg/dL (<150)
[2023-10-14 12:46] LABS: Creatinine Urine 142.95 mg/dL; Microalbum/Creatinine Ratio Ur 20.9 ug/mg cr (<30)
[2023-10-14 12:59] LABS: TSH reflex Free T4 1.61 uIU/mL (0.32-4.0)
== END 2023-10-14 10:00 | disposition home or self-care (01) ==
LOC: HO.WFDLDS 09:59
PROVIDERS: Visit Provider Family Medicine
DX: Z00.00 Encounter for general adult medical examination without abnormal findings (principal); I10 Essential (primary) hypertension; Z12.5 Encounter for screening for malignant neoplasm of prostate
CPT/HCPCS: 36415; 80053; 80061; 81003; 82043; 82570; 84153; 84443; 85025

== ENCOUNTER 2023-11-16 15:16 | Outpatient (AMB) | payer MEDICARE, SELFPAY ==
[2023-11-16 15:28] VITALS: BP 128/78; PULSE 70; O2SAT 94; BMI 38.5
--- NOTE | 2023-11-16 15:28 | MHC.PC.OV ---
Vital Signs 11/16/23 15:28 Height 6 ft 2 in Weight 300 lb BMI 38.5 BP 128/78 Blood Pressure Location Lt brachial Position Sitting Pulse 70 Pulse Source Pulse Oximeter Pulse Oximetry (%) 94 Oxygen Delivery Method Room Air Intake Visit Reasons: Follow-up?CPE-labs Telemed Intake Note: Patient is here for follow up on labs, he got Cologard results, and would like a copy. Allergies No Known Drug Allergies Allergy (Unknown, Verified 11/16/23 15:34) UNKNOWN Medication List - Last Reconciled 11/16/23 by Antonio Wang MD amlodipine 10 mg PO DAILY 90 days glipizide ER 10 mg PO DAILY 90 days insulin glargine (Lantus Solostar U-100 Insulin) 70 units (0.7 mL) subcut QPM 90 days lisinopril 40 mg (2 x 20 mg) PO DAILY 90 days metoprolol succinate ER 75 mg (3 x 25 mg) PO DAILY 90 days omeprazole 20 mg PO DAILY 30 days pen needle, diabetic DX: E11.9 As directed 90 day supply Tobacco use date assessed: 10/14/23 Dental Screening Dental Screen Date: 10/14/23 HPI Follow-up?CPE-labs Telemed HPI Details 63 y/o male presents to f/u CPE-labs. Blood pressure today 128/78. He is on lisinopril 40mg, amlodipine 10mg, metoprolol 75mg daily. Labs were drawn 10/14/23. Reviewed labs with pt. A1c 6.3%. He is on insulin glargine 70 units, glipizide 10mg daily. Triglycerides 107. TC 206. LDL 139. HDL 46. PSA 1.70. Recent cologuard test negative. [facility] Medical History Left ankle pain Surgical History History of surgery History of anterior cruciate ligament surgery History of appendectomy Family History Father Myocardial infarction HTN (hypertension) CVD (cardiovascular disease) Mother CVD (cardiovascular disease) Brother HTN (hypertension) Diabetes mellitus Son Substance abuse in family Social History (Reviewed 10/14/23 @ 09:03 by MINA Osuna Housing: House Patient Tobacco Use Status: Never used Tobacco e-Cigarette/Vaping Use: Never Used Second Hand Smoke Exposure: No service: No Current occupational status: retired Cognitive needs: No Hearing needs: No Vision needs: Yes Questionnaire Thrive Questionnaire Date Thrive assessed: 06/28/23 SANG-7 AMB Questionnaire SANG-7 Date SANG - 7 assessed: 06/28/23 Source: Developed by Drs. Alexis Morel, Selma Redman, Ray Villanueva and colleagues, with an educational bruno from [employer]. Review of Systems Const Denies chills, Denies fatigue, Denies fever(s), Denies headache(s) and Denies weakness ENT Denies dizziness and Denies headache(s) Card Denies dyspnea Resp Denies cough, Denies dyspnea, Denies wheezing and Denies other (shortness of breath) Musc Denies numbness and Denies tingling Neuro Denies dizziness, Denies headache(s), Denies numbness, Denies tingling and Denies weakness Psych Denies anxiety and Denies depression Endo Denies fatigue Aller/Immun Denies wheezing Physical exam (Primary Care) Vital Signs: Last Vital Signs Pulse 70 11/16/23 15:28 BP 128/78 11/16/23 15:28 Pulse Ox 94 11/16/23 15:28 Oxygen Delivery Method Room Air 11/16/23 15:28 BMI result Body Mass Index 38.5 Tobacco/Smoking Status: Tobacco use Status Tobacco use date assessed 10/14/23 11/16/23 15:30 Patient Tobacco Use Status Never used Tobacco 11/16/23 15:30 e-Cigarette/Vaping Use Never Used 11/16/23 15:30 Thrive Assessment: Date of Thrive Assessment Date Thrive assessed 06/28/23 11/16/23 15:30 Const General: well developed; No acute distress Nutritional Appearance: well nourished and obese Orientation/consciousness: patient oriented x3 HENMT Head: Yes normocephalic and Yes atraumatic Eyes General: appearance normal, both eyes and all related structures Pupils: Equal, round and reactive pupils present EOM: EOMs intact bilaterally Resp Effort & Inspection: normal respiratory effort Auscultation: clear to auscultation bilaterally Cardio Rate: regular rate Rhythm: regular rhythm Heart sounds: S1 normal heart sound present, S2 normal heart sound present, no gallops, no murmurs and no rubs Neuro General: patient oriented x3 and gait normal Cranial nerves: Yes Equal, round and reactive pupils present Psych Affect: normal affect Assessment and Plan Assessment & Plan (1) Essential hypertension: Code(s): I10 - Essential (primary) hypertension Plan: Blood?pressure?is?controlled.??Goal?is?less?than?140/90 Continue?current?medication (2) Diabetes type 2, controlled: Code(s): E11.9 - Type 2 diabetes mellitus without complications Plan: A1c?6.3%?is?good?control.??Goal?is?less?than?7.0% Fasting?blood?sugars?are?somewhat?higher Encouraged?more?exercise?and?diet?lower?in?sugars?and?starches No?medication?changes?made?today (3) Screening for prostate cancer: Code(s): Z12.5 - Encounter for screening for malignant neoplasm of prostate Plan: PSA?is?within?normal?range Will?continue?annual?screen (4) Hypercholesterolemia: Code(s): E78.00 - Pure hypercholesterolemia, unspecified Plan: LDL?cholesterol?is?too?high? Discussed?statin?medications?but?patient?is?opposed?them Discussed?Zetia?and?lifestyle?changes?including?decreasing?red?meat?and?butter?in?diet Encouraged?weight?loss?and?more?exercise Will?have?patient?make?these?changes?and?recheck?labs?prior?to?his?next?visit (5) Screening for colon cancer: Code(s): Z12.11 - Encounter for screening for malignant neoplasm of colon Plan: Cologuard?test?was?negative Will?screen?every?3?year (6) Left ankle swelling: Code(s): M25.472 - Effusion, left ankle Plan: Overuse?injury. Patient?walked?long?distances?with?a?heavy?pack?on?his?back Encouraged?ice?and?elevation Orders: Orders Lipid Panel Today E78.00 - Pure hypercholesterolemia, unspecified, Z00.00 - Encounter for general adult medical examination without abnormal findings Comprehensive [place]. Panel Fast Today E78.00 - Pure hypercholesterolemia, unspecified, Z00.00 - Encounter for general adult medical examination without abnormal findings Hemoglobin A1c Today E11.9 - Type 2 diabetes mellitus without complications, R73.01 - Impaired fasting glucose Coding Level of Care Code Est Pt Level 4 (15268) Diagnoses Essential hypertension I10 Diabetes type 2, controlled E11.9 Screening for prostate cancer Z12.5 Hypercholesterolemia E78.00 Screening for colon cancer Z12.11 Left ankle swelling M25.472
== END 2023-11-16 16:06 | disposition home or self-care (01) ==
PROVIDERS: PCP Family Medicine; Visit Provider Family Medicine
DX: I10 Essential (primary) hypertension (principal); E11.9 Type 2 diabetes mellitus without complications; Z12.5 Encounter for screening for malignant neoplasm of prostate; E78.00 Pure hypercholesterolemia, unspecified; Z12.11 Encounter for screening for malignant neoplasm of colon; M25.472 Effusion, left ankle
CPT/HCPCS: 99214

== ENCOUNTER 2024-03-10 09:17 | Outpatient (AMB) | payer MEDICARE, SELFPAY ==
--- NOTE | 2024-03-10 09:26 | A.OFFPC_ITS ---
Vital Signs 03/10/24 09:34 Height 6 ft 2 in Weight 304 lb 4 oz BMI 39.1 BP 131/89 Blood Pressure Location Lt brachial Position Sitting Respiration 14 Pulse 98 Pulse Source Pulse Oximeter Temp 97.7 F Temp Source Temporal Artery Scan Pulse Oximetry (%) 95 Oxygen Delivery Method Room Air Intake Visit Reasons: Follow-up diabetes and hypertension Intake Note: f/u HTN and DM h Allergies No Known Drug Allergies Allergy (Unknown, Verified 03/10/24 09:33) UNKNOWN Tobacco use date assessed: 10/14/23 Dental Screening Dental Screen Date: 10/14/23 HPI Follow-up diabetes and hypertension HPI Details 63 y/o male presents to f/u diabetes, hy pertension. Last A1c 11/16/23 6.3%. A1c today 03/10/24 7.2%. He is on insulin glargine 70 units, 10mg daily. He notes he had been drinking a sugary drink that contains about 30g of sugar. Denies any low blood sugar asides from a one time reading of a 67. Blood pressure today 131/89, 98p. He is on lisinopril 40mg, amlodipine 10mg, metoprolol 75mg daily. He reports daytime fatigue. [facility] Medical History Left ankle pain Surgical History History of surgery History of anterior cruciate ligament surgery History of appendectomy Family History Father Myocardial infarction HTN (hypertension) CVD (cardiovascular disease) Mother CVD (cardiovascular disease) Brother HTN (hypertension) Diabetes mellitus Son Substance abuse in family Social History Housing: House Patient Tobacco Use Status: Never used Tobacco e-Cigarette/Vaping Use: Never Used Second Hand Smoke Exposure: No service: No Current occupational status: retired Cognitive needs: No Hearing needs: No Vision needs: Yes Questionnaire PHQ-9 Over the last 2 weeks, how often have you been bothered by any of the following problems? 1. Little interest or pleasure in doing things: nearly every day 2. Feeling down, depressed, or hopeless: not at all 3. Trouble falling or staying asleep, or sleeping too much: nearly every day 4. Feeling tired or having little energy: nearly every day 5. Poor appetite or overeating: nearly every day 6. Feeling bad about yourself - or that you are a failure or have let yourself or your family down: not at all 7. Trouble concentrating on things, such as reading the newspaper or watching television: not at all 8. Moving or speaking so slowly that other people could have noticed. Or the opposite - being so fidgety or restless that you have been moving around a lot more than usual: nearly every day 9. Thoughts that you would be better off or of hurting yourself in some way: not at all Total score: 15 Source: Developed by Drs. Alexis Morel, Selma Redman, Ray Villanueva and colleagues, with an educational bruno from [employer]. Thrive Questionnaire Date Thrive assessed: 06/28/23 I am a: Patient What is your living situation today?: I have a steady place to live Within the past 12 months, did the food you bought not last and you didn't have the money to get more?: I choose not to answer this question Within the past 12 months, did you worry whether your food would run out before you got money to buy more?: Never true Do you have trouble paying for medicines?: No Do you have trouble getting transportation to medical appointments?: No Do you have trouble paying your heating and electricity bill?: No Do you have trouble taking care of your child, family member or friend?: No Do you have trouble with day-to-day activities such as bathing, preparing meals, shopping, managing finances, etc.?: No Are you currently unemployed and looking for a job?: No Are you interested in more education?: No Please select the resources that you would like help with: None Currently or been in a relationship where the following occur: I choose not to answer THRIVE Score: 0 AUDIT C Alcohol Use Questionnaire (AUDIT-C) 1. How often do you have a drink containing alcohol?: Never Total Score: 0 SANG-7 AMB Questionnaire SANG-7 Date SANG - 7 assessed: 06/28/23 Feeling nervous, anxious, or on edge: 0 = Not at all Not being able to stop or control worryin = Not at all Worrying too much about different things: 0 = Not at all Trouble relaxin = Not at all Being so restless that it is hard to sit still: 0 = Not at all Becoming easily annoyed or irritable: 0 = Not at all Feeling afraid as if something awful might happen: 0 = Not at all Total SANG-7 score (0-4 normal; 5-9 mild; 10-14 moderate; 15-21 severe): 0 Source: Developed by Drs. Alexis Morel, Selma Redman, Ray Villanueva and colleagues, with an educational bruno from [employer]. Review of Systems Const Denies chills, Denies fatigue, Denies fever(s), Denies headache(s) and Denies weakness ENT Denies dizziness and Denies headache(s) Card Denies dyspnea Resp Denies cough, Denies dyspnea, Denies wheezing and Denies other (shortness of breath) Musc Denies numbness and Denies tingling Neuro Denies dizziness, Denies headache(s), Denies numbness, Denies tingling and Denies weakness Psych Denies anxiety and Denies depression Endo Denies fatigue Aller/Immun Denies wheezing Physical exam (Primary Care) Vital Signs: Last Vital Signs Temp 97.7 F 03/10/24 09:34 Pulse 98 03/10/24 09:34 Resp 14 03/10/24 09:34 BP 131/89 03/10/24 09:34 Pulse Ox 95 03/10/24 09:34 Oxygen Delivery Method Room Air 03/10/24 09:34 BMI result Body Mass Index 39.1 Tobacco/Smoking Status: Tobacco use Status Tobacco use date assessed 10/14/23 03/10/24 09:28 Patient Tobacco Use Status Never used Tobacco 03/10/24 09:28 e-Cigarette/Vaping Use Never Used 03/10/24 09:28 PHQ-9: PHQ-9 Score PHQ-9: Total score 15 03/10/24 09:58 Thrive Assessment: Date of Thrive Assessment Date Thrive assessed 06/28/23 03/10/24 09:28 Currently or been in a relationship where the following occur: I choose not to answer Const General: well developed; No acute distress Nutritional Appearance: well nourished Orientation/consciousness: patient oriented x3 [facility] Head: Yes normocephalic and Yes atraumatic Eyes General: appearance normal, both eyes and all related structures Pupils: Equal, round and reactive pupils present EOM: EOMs intact bilaterally Resp Effort & Inspection: normal respiratory effort Auscultation: clear to auscultation bilaterally Cardio Rate: regular rate Rhythm: regular rhythm Heart sounds: S1 normal heart sound present, S2 normal heart sound present, no gallops, no murmurs and no rubs Neuro General: patient oriented x3 and gait normal Cranial nerves: Yes Equal, round and reactive pupils present Psych Affect: normal affect Coding Level of Care Code Est Pt Level 4 (36330) Diagnoses Essential hypertension I10 Diabetes type 2, controlled E11.9 Hypersomnolence G47.10 Assessment & Plan Assessment & Plan (1) Essential hypertension: Code(s): I10 - Essential (primary) hypertension Category: Medical Plan: Blood?pressure?is?controlled.??Goal?is?less?than?140/90 Continue?current?medications (2) Diabetes type 2, controlled: Code(s): E11.9 - Type 2 diabetes mellitus without complications Category: Medical Plan: A1c?7.2%?which?is?significantly?increased?from?prior?check?in?may. Goal?is?less?than?7.0% Patient?has?had?many?dietary?indiscretions.??Mild?weight?gain?as?well. He?will?work?on?a?diet?lower?in?sugars?and?starches.??Encoura ged?weight?loss?and?exercise. We?discussed?that?if?A1c?not?improved?at?next?visit?we?would?adjust?his?medicati on. (3) Hypersomnolence: Code(s): G47.10 - Hypersomnia, unspecified Category: Medical Plan: History?of?apneic?events?and?complaints?of?hypersomnolence Referred?back?to?Sleep?Medicine. Patient?had?been?resistant?regarding?checking?for?sleep?apnea?because?he?believe d?he?would?need?to?have?sleep?study?done?in?a?lab. Likely?will?be?able?to?do?this?at?home.??Patient?more?amenable?to?testing?now. Orders: Referrals Sleep Medicine Referral G47.10 - Hypersomnia, unspecified, G47.30 - Sleep apnea, unspecified Medications: Refilled amlodipine 10 mg PO DAILY 90 tabs 4RF 90 days omeprazole 20 mg PO DAILY 90 caps 4RF 90 days metoprolol succinate ER 75 mg (3 x 25 mg) PO DAILY 270 tabs 4RF 90 days lisinopril Take 2 tablets by mouth daily 40 mg (2 x 20 mg) PO DAILY 180 tabs 4RF 90 days
[2024-03-10 09:34] VITALS: BP 131/89; PULSE 98; RESP 14; TEMP 36.5; O2SAT 95; BMI 39.1
== END 2024-03-10 10:22 | disposition home or self-care (01) ==
PROVIDERS: PCP Family Medicine; Visit Provider Family Medicine
DX: I10 Essential (primary) hypertension (principal); E11.9 Type 2 diabetes mellitus without complications; G47.10 Hypersomnia, unspecified

== ENCOUNTER → 2024-03-10 09:17 | Outpatient (BNVA) | payer MEDICARE, SELFPAY | PROVIDERS: PCP Family Medicine; Visit Provider Family Medicine | DX: I10 Essential (primary) hypertension (principal); E11.9 Type 2 diabetes mellitus without complications; G47.10 Hypersomnia, unspecified; Z79.899 Other long term (current) drug therapy | CPT/HCPCS: 96127; 99212 ==

== ENCOUNTER 2024-07-07 13:13 | Outpatient (AMB) | payer MEDICARE, SELFPAY ==
--- NOTE | 2024-07-07 13:41 | MHC.PC.OV ---
Vital Signs 07/07/24 13:43 Height 6 ft 2 in Weight 304 lb 2 oz BMI 39.0 BP 116/70 Blood Pressure Location Lt brachial Position Sitting Respiration 14 Pulse 90 Pulse Source Pulse Oximeter Temp 99.4 F Temp Source Oral Pulse Oximetry (%) 97 Oxygen Delivery Method Room Air Intake Visit Reasons: f/u diabetes Intake Note: f/u dm Allergies No Known Drug Allergies Allergy (Unknown, Verified 07/07/24 13:42) UNKNOWN Medication List - Last Reconciled 07/07/24 by Antonio Wang MD amlodipine 10 mg PO DAILY 90 days glipizide ER 10 mg PO DAILY 90 days insulin glargine (Lantus Solostar U-100 Insulin) 75 units (0.75 mL) subcut QPM 30 days lisinopril 40 mg (2 x 20 mg) PO DAILY 90 days metoprolol succinate ER 75 mg (3 x 25 mg) PO DAILY 90 days omeprazole 20 mg PO DAILY 90 days pen needle, diabetic DX: E11.9 As directed one time per day 90 day supply Tobacco use date assessed: 10/14/23 Dental Screening Dental Screen Date: 10/14/23 HPI f/u diabetes HPI Details 64 y/o male presents to f/u diabetes. Last A1c 03/10/24 7.2%. He is on glipizide 10mg daily, insulin glargine 70 units. A1c today 8.1%. He notes he has not been watching his diet well recently. Has complaints of anxiety/depression. Has not seen sleep medicine yet. HPI Comments History of Present Illness Details Documentation assistance for Antonio Wang MD, was provided by Tay Bhatti,? Surgical Clinical Reviewer on 07/07/2024 at 2:01 PM VAM[facility]I. I, Dr. Wang, have read, observed, and verified documentation. ?? [facility] Medical History Left ankle pain Surgical History History of surgery History of anterior cruciate ligament surgery History of appendectomy Family History Father Myocardial infarction HTN (hypertension) CVD (cardiovascular disease) Mother CVD (cardiovascular disease) Brother HTN (hypertension) Diabetes mellitus Son Substance abuse in family Social History Housing: House Patient Tobacco Use Status: Never used Tobacco e-Cigarette/Vaping Use: Never Used Second Hand Smoke Exposure: No service: No Current occupational status: retired Cognitive needs: No Hearing needs: No Vision needs: Yes Questionnaire PHQ-9 Over the last 2 weeks, how often have you been bothered by any of the following problems? 4. Feeling tired or having little energy: nearly every day Source: Developed by Drs. Alexis Morel, Selma Redman, Ray Villanueva and colleagues, with an educational bruno from [employer]. Thrive Questionnaire Date Thrive assessed: 06/30/24 I am a: Patient What is your living situation today?: I choose not to answer this question Within the past 12 months, did the food you bought not last and you didn't have the money to get more?: I choose not to answer this question Within the past 12 months, did you worry whether your food would run out before you got money to buy more?: I choose not to answer this question Do you have trouble paying for medicines?: I choose not to answer this question Do you have trouble getting transportation to medical appointments?: I choose not to answer this question Do you have trouble paying your heating and electricity bill?: I choose not to answer this question Do you have trouble taking care of your child, family member or friend?: I choose not to answer this question Do you have trouble with day-to-day activities such as bathing, preparing meals, shopping, managing finances, etc.?: I choose not to answer this question Are you currently unemployed and looking for a job?: I choose not to answer this question Are you interested in more education?: I choose not to answer this question Please select the resources that you would like help with: None Currently or been in a relationship where the following occur: I choose not to answer THRIVE Score: 0 AUDIT C Alcohol Use Questionnaire (AUDIT-C) 1. How often do you have a drink containing alcohol?: 2-4 times a month 2. How many drinks containing alcohol do you have on a typical day when you are drinking?: 5 or 6 3. How often do you have six or more drinks on one occasion?: Monthly Total Score: 6 SANG-7 AMB Questionnaire SANG-7 Date SANG - 7 assessed: 06/28/23 Feeling nervous, anxious, or on edge: 0 = Not at all Not being able to stop or control worryin = Not at all Worrying too much about different things: 0 = Not at all Trouble relaxin = Not at all Being so restless that it is hard to sit still: 0 = Not at all Becoming easily annoyed or irritable: 1 = Several days Feeling afraid as if something awful might happen: 0 = Not at all Total SANG-7 score (0-4 normal; 5-9 mild; 10-14 moderate; 15-21 severe): 1 Source: Developed by Drs. Alexis Morel, Selma Redman, Ray Villanueva and colleagues, with an educational bruno from [employer]. Review of Systems Const Denies chills, Denies fatigue, Denies fever(s), Denies headache(s) and Denies weakness ENT Denies dizziness and Denies headache(s) Card Denies dyspnea Resp Denies cough, Denies dyspnea, Denies wheezing and Denies other (shortness of breath) Musc Denies numbness and Denies tingling Neuro Denies dizziness, Denies headache(s), Denies numbness, Denies tingling and Denies weakness Psych Reports anxiety and Reports depression Endo Denies fatigue Aller/Immun Denies wheezing Physical exam (Primary Care) Vital Signs: Last Vital Signs Temp 99.4 F 07/07/24 13:43 Pulse 90 07/07/24 13:43 Resp 14 07/07/24 13:43 BP 116/70 07/07/24 13:43 Pulse Ox 97 07/07/24 13:43 Oxygen Delivery Method Room Air 07/07/24 13:43 BMI result Body Mass Index 39.0 Tobacco/Smoking Status: Tobacco use Status Tobacco use date assessed 10/14/23 07/07/24 13:46 Patient Tobacco Use Status Never used Tobacco 07/07/24 13:46 e-Cigarette/Vaping Use Never Used 07/07/24 13:46 Thrive Assessment: Date of Thrive Assessment Date Thrive assessed 06/30/24 07/07/24 13:46 Currently or been in a relationship where the following occur: I choose not to answer Const General: well developed; No acute distress Nutritional Appearance: well nourished Orientation/consciousness: patient oriented x3 [facility] Head: Yes normocephalic and Yes atraumatic Eyes General: appearance normal, both eyes and all related structures Pupils: Equal, round and reactive pupils present EOM: EOMs intact bilaterally Resp Effort & Inspection: normal respiratory effort Neuro General: patient oriented x3 and gait normal Cranial nerves: Yes Equal, round and reactive pupils present Psych Affect: normal affect Coding Level of Care Code Est Pt Level 4 (90314) Diagnoses Diabetes type 2, controlled E11.9 Essential hypertension I10 Depression with anxiety F41.8 Sleep apnea G47.30 Assessment & Plan Assessment & Plan (1) Diabetes type 2, controlled: Code(s): E11.9 - Type 2 diabetes mellitus without complications Category: Medical Plan: A1c?8.1%.??Poor?and?worsening?control.??Goal?is?less?than?7.0% Patient?notes?significant?dietary?indiscretions Will?increase?Lantus?from?70?units?daily?to?75?units?daily Work?on?diet?lower?in?saturated?fats?and?cholesterol.??Work?on?weight?loss.??Work?on?exercise (2) Essential hypertension: Code(s): I10 - Essential (primary) hypertension Category: Medical Plan: Blood?pressure?is?controlled.??Goal?is?less?than?140/90 Continue?current?medication (3) Depression with anxiety: Code(s): F41.8 - Other specified anxiety disorders Category: Medical Plan: Difficulties?with?motivation Likely?some?depressed?mood?and?also?some?anxiety Start?fluoxetine?and?titrate?to?20?mg?daily Will?follow-up?in?a?couple?of?months Will?let?me?know?if?he?has?any?problems?with?this I?did?recommended?therapist?but?patient?declines?this?for?now. Encouraged?exercise (4) Sleep apnea: Code(s): G47.30 - Sleep apnea, unspecified Category: Medical Plan: Patient?did?not?follow?through?with?his?appointment?for?sleep?medicine?due?to?illness. Encouraged?him?to?set?up?the?appointment?and?follow?through Orders: Orders AMB Hemoglobin A1c Today E11.9 - Type 2 diabetes mellitus without complications Medications: New fluoxetine 20 mg PO DAILY 30 days 30 tabs 3RF Changed From insulin glargine (Lantus Solostar U-100 Insulin) 70 units (0.7 mL) subcut QPM 90 days 63 mL 0RF E11.65 - Type 2 diabetes mellitus with hyperglycemia To insulin glargine (Lantus Solostar U-100 Insulin) 75 units (0.75 mL) subcut QPM 30 days 24 mL 11RF E11.65 - Type 2 diabetes mellitus with hyperglycemia
[2024-07-07 13:43] VITALS: BP 116/70; PULSE 90; RESP 14; TEMP 37.4; O2SAT 97; BMI 39.0
== END 2024-07-07 14:28 | disposition home or self-care (01) ==
PROVIDERS: PCP Family Medicine; Visit Provider Family Medicine
DX: E11.9 Type 2 diabetes mellitus without complications (principal); I10 Essential (primary) hypertension; F41.8 Other specified anxiety disorders; G47.30 Sleep apnea, unspecified

== ENCOUNTER → 2024-07-07 13:13 | Outpatient (BNVA) | payer MEDICARE, SELFPAY | PROVIDERS: PCP Family Medicine; Visit Provider Family Medicine | DX: E11.9 Type 2 diabetes mellitus without complications (principal); I10 Essential (primary) hypertension; F41.8 Other specified anxiety disorders; G47.30 Sleep apnea, unspecified | CPT/HCPCS: 83036; 99212 ==

== ENCOUNTER 2024-09-08 13:00 | Outpatient (AMB) | payer MEDICARE, SELFPAY ==
--- NOTE | 2024-09-08 13:52 | MHC.PC.OV ---
Vital Signs 09/08/24 13:53 Height 6 ft 2 in Weight 298 lb BMI 38.3 BP 110/70 Blood Pressure Location Lt brachial Position Sitting Respiration 16 Pulse 98 Pulse Source Pulse Oximeter Temp 98.8 F Temp Source Oral Pulse Oximetry (%) 97 Oxygen Delivery Method Room Air Intake Visit Reasons: f/u diabete, HTN Intake Note: patient is scheduled for follow up dm Shareholder Required: No Allergies No Known Drug Allergies Allergy (Unknown, Verified 09/08/24 13:53) UNKNOWN Medication List - Last Reconciled 09/08/24 by Antonio Wang MD amlodipine 10 mg PO DAILY 90 days fluoxetine 20 mg PO DAILY 90 days glipizide ER 10 mg PO DAILY 90 days insulin glargine (Basaglar KwikPen U-100 Insulin) 75 units (0.75 mL) subcut QPM lisinopril 40 mg (2 x 20 mg) PO DAILY 90 days metoprolol succinate ER 75 mg (3 x 25 mg) PO DAILY 90 days omeprazole 20 mg PO DAILY 90 days pen needle, diabetic DX: E11.9 As directed one time per day 90 day supply Tobacco use date assessed: 10/14/23 Dental Screening Dental Screen Date: 10/14/23 HPI f/u diabete, HTN HPI Details 64 y/o male presents to f/u diabetes, HTN. A1c today 09/08/24 6.7%, improved from prior. He is on glipizide 10mg daily, insulin glargine 75 units. Blood pressure today 110/70, 98p. He is on amlodipine 10mg, lisinopril 40mg, metoprolol 75mg daily. HPI Comments History of Present Illness Details Documentation assistance for Antonio Wang MD, was provided by Tay Bhatti,? Electric Tool Repairer on 09/08/2024 at 1:56 PM EST. I, Dr. Wang, have read, observed, and verified documentation. ? PFSH Medical History Left ankle pain Surgical History History of surgery History of anterior cruciate ligament surgery History of appendectomy Family History Father Myocardial infarction HTN (hypertension) CVD (cardiovascular disease) Mother CVD (cardiovascular disease) Brother HTN (hypertension) Diabetes mellitus Son Substance abuse in family Social History (Reviewed 10/14/23 @ 09:03 by Ena Serna [facility]) Housing: House Patient Tobacco Use Status: Never used Tobacco e-Cigarette/Vaping Use: Never Used Second Hand Smoke Exposure: No service: No Current occupational status: retired Cognitive needs: No Hearing needs: No Vision needs: Yes Questionnaire PHQ-9 Over the last 2 weeks, how often have you been bothered by any of the following problems? 1. Little interest or pleasure in doing things: nearly every day 2. Feeling down, depressed, or hopeless: several days 5. Poor appetite or overeating: several days 6. Feeling bad about yourself - or that you are a failure or have let yourself or your family down: not at all 7. Trouble concentrating on things, such as reading the newspaper or watching television: not at all 8. Moving or speaking so slowly that other people could have noticed. Or the opposite - being so fidgety or restless that you have been moving around a lot more than usual: not at all 9. Thoughts that you would be better off or of hurting yourself in some way: not at all Source: Developed by Drs. Alexis Morel, Selma Redman, Ray Villanueva and colleagues, with an educational bruno from [employer]. Thrive Questionnaire Date Thrive assessed: 06/30/24 I am a: Patient What is your living situation today?: I choose not to answer this question Within the past 12 months, did the food you bought not last and you didn't have the money to get more?: I choose not to answer this question Within the past 12 months, did you worry whether your food would run out before you got money to buy more?: I choose not to answer this question Do you have trouble paying for medicines?: I choose not to answer this question Do you have trouble getting transportation to medical appointments?: I choose not to answer this question Do you have trouble paying your heating and electricity bill?: I choose not to answer this question Do you have trouble taking care of your child, family member or friend?: I choose not to answer this question Do you have trouble with day-to-day activities such as bathing, preparing meals, shopping, managing finances, etc.?: I choose not to answer this question Are you currently unemployed and looking for a job?: I choose not to answer this question Are you interested in more education?: I choose not to answer this question Please select the resources that you would like help with: None Currently or been in a relationship where the following occur: I choose not to answer THRIVE Score: 0 SANG-7 AMB Questionnaire SANG-7 Date SANG - 7 assessed: 06/28/23 Source: Developed by Drs. Alexis Morel, Selma Redman, Ray Villanueva and colleagues, with an educational bruno from [employer]. Review of Systems Const Denies chills, Denies fatigue, Denies fever(s), Denies headache(s) and Denies weakness ENT Denies dizziness and Denies headache(s) Card Denies chest pain, Denies lightheadedness, Denies dyspnea and Denies other (Palpitations) Resp Denies cough, Denies dyspnea, Denies wheezing and Denies other ( shortness of breath) Musc Denies numbness and Denies tingling Neuro Denies dizziness, Denies headache(s), Denies numbness, Denies tingling, Denies paresthesias and Denies weakness Psych Denies anxiety and Denies depression Endo Denies fatigue Aller/Immun Denies wheezing Physical exam (Primary Care) Vital Signs: Last Vital Signs Temp 98.8 F 09/08/24 13:53 Pulse 98 09/08/24 13:53 Resp 16 09/08/24 13:53 BP 110/70 09/08/24 13:53 Pulse Ox 97 09/08/24 13:53 Oxygen Delivery Method Room Air 09/08/24 13:53 BMI result Body Mass Index 38.3 Tobacco/Smoking Status: Tobacco use Status Tobacco use date assessed 10/14/23 09/08/24 13:54 Patient Tobacco Use Status Never used Tobacco 09/08/24 13:54 e-Cigarette/Vaping Use Never Used 09/08/24 13:54 Thrive Assessment: Date of Thrive Assessment Date Thrive assessed 06/30/24 09/08/24 13:54 Currently or been in a relationship where the following occur: I choose not to answer Const General: no acute distress and well developed Nutritional Appearance: well nourished Orientation/consciousness: patient oriented x3 [facility] Head: Yes normocephalic and Yes atraumatic Eyes General: appearance normal, both eyes and all related structures Pupils: Equal, round and reactive pupils present EOM: EOMs intact bilaterally Resp Effort & Inspection: normal respiratory effort Auscultation: clear to auscultation bilaterally Cardio Rate: regular rate Rhythm: regular rhythm Heart sounds: S1 normal heart sound present, S2 normal heart sound present, no gallops, no murmurs and no rubs Neuro General: patient oriented x3 and gait normal Cranial nerves: Yes Equal, round and reactive pupils present Psych Affect: normal affect Coding Level of Care Code Est Pt Level 4 (01942) Diagnoses Diabetes type 2, controlled E11.9 Essential hypertension I10 Depression with anxiety F41.8 Assessment & Plan Assessment & Plan (1) Diabetes type 2, controlled: Code(s): E11.9 - Type 2 diabetes mellitus without complications Category: Medical Plan: A1c?now?6.7%.??Goal?is?less?than?7.0% However,?patient?has?been?skipping?evening?meals?and?has?had?3?low?blood?sugars.??Lowest?was?42 Advised?him?not?to?entirely?skip?meals?and?he?may?need?to?use?a?snack?in?the?evening Check?nighttime?blood?sugars?and?check?again?in?the?morning No?change?to?his?medication?regimen?at?this?time (2) Essential hypertension: Code(s): I10 - Essential (primary) hypertension Category: Medical Plan: Blood?pressure?is?well?controlled.??Goal?is?less?than?140/90 Continue?current?medication (3) Depression with anxiety: Code(s): F41.8 - Other specified anxiety disorders Category: Medical Plan: Started?him?on?fluoxetine?at?last?visit. Appears?to?have?objective?and?some?subjective?improvements?in?mood?and?motivation. Continue?current?medication
[2024-09-08 13:53] VITALS: BP 110/70; PULSE 98; RESP 16; TEMP 37.1; O2SAT 97; BMI 38.3
== END 2024-09-08 14:19 | disposition home or self-care (01) ==
LOC: HO.HMCFM 13:01
PROVIDERS: PCP Family Medicine; Visit Provider Family Medicine
DX: E11.9 Type 2 diabetes mellitus without complications (principal); I10 Essential (primary) hypertension; F41.8 Other specified anxiety disorders

== ENCOUNTER → 2024-09-08 13:00 | Outpatient (BNVA) | payer MEDICARE, SELFPAY | PROVIDERS: PCP Family Medicine; Visit Provider Family Medicine | DX: E11.9 Type 2 diabetes mellitus without complications (principal); F41.8 Other specified anxiety disorders; I10 Essential (primary) hypertension | CPT/HCPCS: 83036; 99212 ==

== ENCOUNTER 2025-01-23 09:24 | Outpatient (AMB) | payer MEDICARE, SELFPAY ==
--- NOTE | 2025-01-23 09:26 | A.OFFPC_ITS ---
Vital Signs 01/23/25 09:35 Height 6 ft 3 in Weight 308 lb 8 oz BMI 38.6 BP 142/76 H Blood Pressure Location Lt brachial Position Sitting Respiration 13 Pulse 51 Pulse Source Pulse Oximeter Temp 97.1 F Temp Source Oral Pulse Oximetry (%) 98 Oxygen Delivery Method Room Air Intake Visit Reasons: f/u DM, HTN - see comments Intake Note: Follow up htn and dm. Patient c/o sob and can't even sleep because he feels out of breath x 1month. PPatient stop taking prozac. 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 Allergies No Known Drug Allergies Allergy (Unknown, Verified 01/23/25 09:27) UNKNOWN Medication List - Last Reconciled 01/23/25 by Antonio Wang MD amlodipine 10 mg PO DAILY 90 days fluoxetine 20 mg PO DAILY 90 days glipizide ER 10 mg PO DAILY 90 days insulin glargine (Basaglar KwikPen U-100 Insulin) 75 units (0.75 mL) subcut QPM lisinopril 40 mg (2 x 20 mg) PO DAILY 90 days metoprolol succinate ER 75 mg (3 x 25 mg) PO DAILY 90 days omeprazole 20 mg PO DAILY 90 days pen needle, diabetic DX: E11.9 As directed one time per day 90 day supply Tobacco use date assessed: 01/23/25 Fall risk assessment: No Falls in past year Last assessed Fall Risk: 01/23/25 Dental Screening Dental Screen Date: 01/23/25 Did you have a dental visit in the last 12 months?: Yes Did you have a dental problem in the last 6 months where you did not have access to dental care?: No Was dental information given to patient?: Patient has dentist HPI f/u DM, HTN - see comments HPI Details 64 y/o male presents to f/u diabetes, HT N. BP today 142/76, 51p. He is on amlodipine 10mg, lisinopril 40mg, metoprolol 75mg daily. A1c today 6.5%. He is on glipizide 10mg, Basaglar 75 units. Has complaints of shortness of breath and difficulty sleeping due to this. Pt reports sleeping 12 hours and still feels fatigued. Had made referral to sleep medicine before. Pt notes he had felt he was not ready for a sleep study. Reports nasal congestion feels worse than usual. Pt notes he has stopped his prozac. Pt reports he has started drinking EtOH again. HPI Comments History of Present Illness Details Documentation assistance for Antonio Wang MD, was provided by Tay Bhatti,? Bark Press Operator on 01/23/2025 at 3:31 PM EST. I, Dr. Wang, have read, observed, and verified documentation. ?? PFSH Medical History Left ankle pain Surgical History History of surgery History of anterior cruciate ligament surgery History of appendectomy Family History Father Myocardial infarction HTN (hypertension) CVD (cardiovascular disease) Mother CVD (cardiovascular disease) Brother HTN (hypertension) Diabetes mellitus Son Substance abuse in family Social History Housing: House Patient Tobacco Use Status: Never used Tobacco e-Cigarette/Vaping Use: Never Used Second Hand Smoke Exposure: No service: No Current occupational status: retired Cognitive needs: No Hearing needs: No Vision needs: Yes Questionnaire PHQ-9 Over the last 2 weeks, how often have you been bothered by any of the following problems? 1. Little interest or pleasure in doing things: not at all 2. Feeling down, depressed, or hopeless: not at all 3. Trouble falling or staying asleep, or sleeping too much: not at all 4. Feeling tired or having little energy: not at all 5. Poor appetite or overeating: not at all 6. Feeling bad about yourself - or that you are a failure or have let yourself or your family down: not at all 7. Trouble concentrating on things, such as reading the newspaper or watching television: not at all 8. Moving or speaking so slowly that other people could have noticed. Or the opposite - being so fidgety or restless that you have been moving around a lot more than usual: not at all 9. Thoughts that you would be better off or of hurting yourself in some way: not at all Total score: 0 Depression Screening Interpretation: Negative Depression Screening Done: Yes 79213 - PHQ-9 Billing: Yes Source: Developed by Drs. Alexis Morel, Selma Redman, Ray Villanueva and colleagues, with an educational bruno from [employer]. Thrive Questionnaire Date Thrive assessed: 01/23/25 I am a: Patient What is your living situation today?: I choose not to answer this question Within the past 12 months, did the food you bought not last and you didn't have the money to get more?: I choose not to answer this question Within the past 12 months, did you worry whether your food would run out before you got money to buy more?: I choose not to answer this question Do you have trouble paying for medicines?: I choose not to answer this question Do you have trouble getting transportation to medical appointments?: I choose not to answer this question Do you have trouble paying your heating and electricity bill?: I choose not to answer this question Do you have trouble taking care of your child, family member or friend?: I choose not to answer this question Do you have trouble with day-to-day activities such as bathing, preparing meals, shopping, managing finances, etc.?: I choose not to answer this question Are you currently unemployed and looking for a job?: I choose not to answer this question Are you interested in more education?: I choose not to answer this question Please select the resources that you would like help with: None Currently or been in a relationship where the following occur: I choose not to answer THRIVE Score: 0 SANG-7 AMB Questionnaire SANG-7 Date SANG - 7 assessed: 01/23/25 Feeling nervous, anxious, or on edge: 0 = Not at all Not being able to stop or control worryin = Not at all Worrying too much about different things: 0 = Not at all Trouble relaxin = Not at all Being so restless that it is hard to sit still: 0 = Not at all Becoming easily annoyed or irritable: 0 = Not at all Feeling afraid as if something awful might happen: 0 = Not at all Total SANG-7 score (0-4 normal; 5-9 mild; 10-14 moderate; 15-21 severe): 0 Source: Developed by Selma Beckett Kurt Kroenke and colleagues, with an educational bruno from [employer]. SANG-7 Assessment Billing SANG-7 Assessment Tool: SANG-7 Assessment 93378 Review of Systems Const Denies chills, Denies fatigue, Denies fever(s), Denies headache(s) and Denies weakness ENT Denies dizziness and Denies headache(s) Card Denies dyspnea Resp Denies cough, Denies dyspnea, Denies wheezing and Denies other (shortness of breath) Musc Denies numbness and Denies tingling Neuro Denies dizziness, Denies headache(s), Denies numbness, Denies tingling and Denies weakness Psych Denies anxiety and Denies depression Endo Denies fatigue Aller/Immun Denies wheezing Physical exam (Primary Care) Vital Signs: Last Vital Signs Temp 97.1 F 01/23/25 09:35 Pulse 51 01/23/25 09:35 Resp 13 01/23/25 09:35 BP 142/76 H 01/23/25 09:35 Pulse Ox 98 01/23/25 09:35 Oxygen Delivery Method Room Air 01/23/25 09:35 BMI result Body Mass Index 38.6 Tobacco/Smoking Status: Tobacco use Status Tobacco use date assessed 01/23/25 01/23/25 09:27 Patient Tobacco Use Status Never used Tobacco 01/23/25 09:27 e-Cigarette/Vaping Use Never Used 01/23/25 09:27 PHQ-9: PHQ-9 Score PHQ-9: Total score 0 01/23/25 10:30 Depression Screening Interpretation: Negative Thrive Assessment: Date of Thrive Assessment Date Thrive assessed 01/23/25 01/23/25 09:27 Currently or been in a relationship where the following occur: I choose not to answer Const General: well developed; No acute distress Nutritional Appearance: well nourished Orientation/consciousness: patient oriented x3 HENMT Head: Yes normocephalic and Yes atraumatic Eyes General: appearance normal, both eyes and all related structures Pupils: Equal, round and reactive pupils present EOM: EOMs intact bilaterally Resp Effort & Inspection: normal respiratory effort Neuro General: patient oriented x3 and gait normal Cranial nerves: Yes Equal, round and reactive pupils present Psych Affect: normal affect Results AMB Hemoglobin A1c AMB Hemoglobin A1c 6.5 % Last Edit by Leticia Alvarez MA on 01/23/25 09:47 Results Reviewed Results Reviewed: Laboratory Last Values Hgb A1c (Clinic) 6.5 % (4.0-6.0) H 01/23/25 09:46 Coding Level of Care Code Est Pt Level 5 (36303) Diagnoses Diabetes type 2, controlled E11.9 Essential hypertension I10 Sleep apnea G47.30 Obesity (BMI 30-39.9) E66.9 Rhinitis J31.0 Depression with anxiety F41.8 Alcohol drinker Z72.89 Left ankle pain M25.572 Additional Codes SANG-7 Assessment Billing - SANG-7 Assessment Tool: SANG-7 Assessment 96134 ([id number]) PHQ-9 - 06647 - PHQ-9 Billing: Yes ([id number]) Assessment & Plan Assessment & Plan (1) Diabetes type 2, controlled: Code(s): E11.9 - Type 2 diabetes mellitus without complications Category: Medical Plan: A1c 6.5%. Controlled. Goal is less than 7.0% Continue current medication Encouraged diet exercise and weight loss (2) Essential hypertension: Code(s): I10 - Essential (primary) hypertension Category: Medical Plan: Blood pressure is elevated today. Patient notes he is not sleeping well. Untreated sleep apnea. He has not followed through with sleep study. Continue current medications for blood pressure Encouraged him to follow through with sleep study If blood pressure is still elevated at next visit, will adjust his medication regimen (3) Sleep apnea: Code(s): G47.30 - Sleep apnea, unspecified Category: Medical Plan: As above (4) Obesity (BMI 30-39.9): Code(s): E66.9 - Obesity, unspecified Category: Medical Plan: Encouraged weight loss through diet and exercise (5) Rhinitis: Code(s): J31.0 - Chronic rhinitis Category: Medical Plan: Trial cetirizine (6) Depression with anxiety: Code(s): F41.8 - Other specified anxiety disorders Category: Medical Plan: No longer taking fluoxetine Mood is stable today He will let know if this changes (7) Alcohol drinker: Code(s): Z72.89 - Other problems related to lifestyle Category: Social Hx Plan: He notes that he has been drinking again. Encouraged weaning and cessation (8) Left ankle pain: Code(s): M25.572 - Pain in left ankle and joints of left foot Category: Medical Plan Left ankle pain Can use ice, heat, brace or Paulo wrap If not improving will refer to ortho Orders: Orders Comprehensive [place]. Panel Fast Today Z00.00 - Encounter for general adult medical examination without abnormal findings Microalbumin, Random (w Creat) Today I10 - Essential (primary) hypertension AMB Hemoglobin A1c Today E11.65 - Type 2 diabetes mellitus with hyperglycemia, E11.9 - Type 2 diabetes mellitus without complications, Z13.9 - Encounter for screening, unspecified Complete Blood Count Auto Diff Today Z00.00 - Encounter for general adult medical examination without abnormal findings Lipid Panel Today Z00.00 - Encounter for general adult medical examination without abnormal findings TSH reflex Free T4 Today Z00.00 - Encounter for general adult medical examination without abnormal findings UA CC w/rflx Micro + Cult Today Z00.00 - Encounter for general adult medical examination without abnormal findings Prostate Specific Antigen Scr Today Z12.5 - Encounter for screening for malignant neoplasm of prostate Medications: Discontinued fluoxetine Discontinued Reason: Doctor's Order 20 mg PO DAILY 90 days 90 caps 2RF
[2025-01-23 09:35] VITALS: BP 142/76; PULSE 51; RESP 13; TEMP 36.2; O2SAT 98; BMI 38.6
== END 2025-01-23 10:29 | disposition home or self-care (01) ==
LOC: HO.HMCFM 09:25
PROVIDERS: PCP Family Medicine; Visit Provider Family Medicine
DX: E11.65 Type 2 diabetes mellitus with hyperglycemia (principal); E11.9 Type 2 diabetes mellitus without complications; E66.9 Obesity, unspecified; Z68.38 Body mass index [BMI] 38.0-38.9, adult; I10 Essential (primary) hypertension; G47.30 Sleep apnea, unspecified; J31.0 Chronic rhinitis; F41.8 Other specified anxiety disorders; Z72.89 Other problems related to lifestyle; M25.572 Pain in left ankle and joints of left foot

== ENCOUNTER 2025-01-23 09:24 | Outpatient (REF) | payer MEDICARE, SELFPAY ==
[2025-01-23 14:20] LABS: Appearance Urine Clear; Glucose Urine UA Negative (Negative); PH 5.5 (5.0-9.0); Specific Gravity - Urine 1.020 (1.005-1.025); UMIC TRIGGER UACC YES
[2025-01-23 14:26] LABS: MANUAL DIFF FLAG NO
[2025-01-23 14:34] LABS: Hematocrit 47.6 % (42.0-52.0); Hemoglobin 15.8 g/dl (14.0-18.0); Imm Gran Abs Auto 0.05 X10*3/uL (0.00-0.03); Imm Gran Pct Auto 0.5 % (0.0-0.4); Lymphocytes Absolute Auto 1.2 X10*3/uL (1.2-4.9); Mean Corpuscular HGB Conc 33.2 g/dl (31.0-36.0); Mean Corpuscular Hemoglobin 30.0 pg (27.0-33.0); Mean Corpuscular Volume 90.3 fL (80.0-98.0); NRBC Abs Auto 0.000 X10*3/uL (0.0-0.012); NRBC Pct Auto 0.0 /100WBC (0.0-0.2); Platelet Count 207 X10*3/uL (160-400); Red Blood Count 5.27 X10*6/uL (4.60-5.80); White Blood Count 9.5 X10*3/uL (4.8-10.8)
[2025-01-23 15:04] LABS: Alanine Aminotransferase 25 U/L (0-40); Albumin Level 4.5 g/dL (3.5-5.0); Alkaline Phosphatase 73 U/L (39-117); Anion Gap 12 (12-20); Aspartate Amino Transferase 24 U/L (5-37); Blood Urea Nitrogen 11 mg/dL (9-16); Calcium 9.1 mg/dL (8.4-10.2); Carbon Dioxide 30 mmol/L (22-29); Chloride 105 mmol/L (96-108); Cholesterol 205 mg/dL (<200); Estimated Glomerular Filt Rate > 60; HDL Cholesterol 41 mg/dL (>40); Potassium 4.3 mmol/L (3.3-5.1); Sodium 143 mmol/L (135-145); Total Protein 6.8 g/dL (6.5-8.0); Triglycerides 85 mg/dL (<150)
[2025-01-23 15:21] LABS: Microalbum/Creatinine Ratio Ur 176.8 ug/mg cr (<30)
== END 2025-01-23 09:25 | disposition home or self-care (01) ==
LOC: HO.WFDLDS 09:24
PROVIDERS: PCP Family Medicine; Visit Provider Family Medicine
DX: Z00.00 Encounter for general adult medical examination without abnormal findings (principal); Z12.5 Encounter for screening for malignant neoplasm of prostate; I10 Essential (primary) hypertension; E11.9 Type 2 diabetes mellitus without complications; G47.30 Sleep apnea, unspecified; E66.9 Obesity, unspecified; J31.0 Chronic rhinitis; F41.8 Other specified anxiety disorders; M25.572 Pain in left ankle and joints of left foot; Z72.89 Other problems related to lifestyle; Z79.4 Long term (current) use of insulin; Z79.84 Long term (current) use of oral hypoglycemic drugs; Z68.38 Body mass index [BMI] 38.0-38.9, adult
CPT/HCPCS: 36415; 80053; 80061; 81001; 82043; 82570; 83036; 84153; 84443; 85025; 96127; 99212

== ENCOUNTER 2025-02-21 09:18 | Outpatient (AMB) | payer MEDICARE, SELFPAY ==
--- NOTE | 2025-02-21 09:23 | A.OFFVIS_ITS ---
Vital Signs 02/21/25 09:24 Height 6 ft 3 in Weight 313 lb 8 oz BMI 39.2 BP 114/92 H Blood Pressure Location Lt brachial Position Sitting Pulse 138 H Pulse Source Pulse Oximeter Pulse Oximetry (%) 95 Oxygen Delivery Method Room Air Intake Visit Reasons: INP-Sleep apnea,?Hypersomnia Intake Note: Patient presents [facility] MAN Sleep Apnea. Has complaints of shortness of breath and diffi culty sleeping. Reports sleeping 12 hours and still feels fatigued. Patient states son has him stopped breathing for about a min. Notices when he has few drinks he notices has apneas. no history of sleep studies. Accompanied by: Self / Same As Patient Allergies No Known Drug Allergies Allergy (Unknown, Verified 02/21/25 09:28) UNKNOWN HPI Comments Details: 64 year old male presents for an evaluation of sleep apnea, he is referred to us by his PCP. BP is 114/92 and Pulse is 138 today, pt says he feels volume overlaoded and has gained a lot of weight. He retired from work about 5 years ago and lost interest in doing things. He plans [employer] and never gets around to them. He surfs on the computer all day. He started prozac, tried it for 90 days and then discontinued because it did not help him. He says he started hallucinations of black sworly lines , and when he blinks it disappears, and will see black dot in r. eye, with a bite taken out of it then it disappears when he blinks. He had his vision checked Apr 2024 and this always happens when he wakes, up first thing in the mornings. He goes to bed at 8pm and wakes up at 6am, with 8 bathroom breaks. He notices he is starting to retain fluid in lower ext. bilaterally. He does not wear compression stockings. He snores and has witnessed apneas according to his . He has GERD which is improved with omeprazole. He moves a lot in his sleep, will toss and turn through out the night. He denies RLS. He had a L. ACL repair when he was 16 years old, so has difficulty with walking. He says his memory is poor. His appetite is poor will eat infrequently and small meals. He drinks 3-4 beers occasionally. Denies smoking, uses MJ, and edibles to sleep. [facility] Medical History Left ankle pain Surgical History History of surgery History of anterior cruciate ligament surgery History of appendectomy Family History Father Myocardial infarction HTN (hypertension) CVD (cardiovascular disease) Mother CVD (cardiovascular disease) Brother HTN (hypertension) Diabetes mellitus Son Substance abuse in family Social History Housing: House Patient Tobacco Use Status: Never used Tobacco e-Cigarette/Vaping Use: Never Used Second Hand Smoke Exposure: No service: No Current occupational status: retired Cognitive needs: No Hearing needs: No Vision needs: Yes Physical Exam Vital Signs: Last Vital Signs Pulse 138 H 02/21/25 09:24 BP 114/92 H 02/21/25 09:24 Pulse Ox 95 02/21/25 09:24 Oxygen Delivery Method Room Air 02/21/25 09:24 BMI result Body Mass Index 39.2 Const General: cooperative Nutritional Appearance: obese and overweight Orientation/consciousness: patient oriented x3 and Other orientation findings (tangential speech) HEENT Face and sinus: Yes face symmetric Throat: Yes other (mallampti score is 3) Neck Neck: Yes full ROM Resp Effort & Inspection: able to speak in complete sentences Neuro General: patient oriented x3 and moves all extremities Cranial nerves: Yes Normal facial strength present, Yes Midline tongue present, Yes Ability to bilaterally rotate head present and Yes Ability to bilaterally elevate shoulders present Cognition (Neuro): normal cognition Gait exam (Neuro): Wide-based gait present Motor exam (neuro): 5/5 motor strength present throughout and Normal motor muscle tone present throughout Psych Appearance: well kempt Mental Status: other Thought process: Flight of ideas present, Loose association thought process present and Tangential thought process present Results Reviewed Results Reviewed: Labs reviewed with pt. WBC elevated, Hg A1c is elevated, to 6.5, cholesterol, and LDL elevated, granul ar casts seen. ATN, GNP? Micro-albumineria, XR/XR knee RT 3V IMPRESSION: RIGHT KNEE: Normal. LEFT KNEE: 1. Postsurgical changes. 2. Tricompartmental osteoarthritis with degenerative changes most prominent in the medial compartment being at least moderate. Internal Medicine PCP note 01/2025 Assessment & Plan Assessment & Plan (1) Excessive daytime sleepiness: Code(s): G47.19 - Other hypersomnia Category: Medical (2) Depression with anxiety: Code(s): F41.8 - Other specified anxiety disorders Category: Medical (3) Loud snoring: Code(s): R06.83 - Snoring Category: Medical (4) Anemia: Code(s): D64.9 - Anemia, unspecified Category: Medical Qualifiers: Anemia type: iron deficiency Iron deficiency anemia type: unspecified iron deficiency Qualified Code(s): D50.9 - Iron deficiency anemia, unspecified (5) Anxiety: Code(s): F41.9 - Anxiety disorder, unspecified Category: Medical (6) Microalbuminuric diabetic nephropathy: Code(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 per pcp, may evaluate at next f/u if pt is amenable to treatment as this will interfere with sleep. pt. education provided re: BP is elevated today, and hga1 is elevated. the number one modifiable risk factor of cardiovascular disease is good blood pressure control. F/U in 3 months Orders: Orders Vitamin B6 Today D64.9 - Anemia, unspecified, F41.8 - Other specified anxiety disorders, G47.19 - Other hypersomnia Vitamin B12 and Folate Today D64.9 - Anemia, unspecified, F41.8 - Other specified anxiety disorders, G47.19 - Other hypersomnia Vitamin B1 Today D64.9 - Anemia, unspecified, F41.8 - Other specified anxiety disorders, G47.19 - Other hypersomnia Methylmalonic Acid Today D64.9 - Anemia, unspecified, F41.8 - Other specified anxiety disorders, G47.19 - Other hypersomnia, G47.9 - Sleep disorder, unspecified, R53.83 - Other fatigue Ferritin Today D64.9 - Anemia, unspecified, F41.8 - Other specified anxiety disorders, G47.19 - Other hypersomnia RT home sleep study Today G47.19 - Other hypersomnia Vitamin D 25-OH Total Today D64.9 - Anemia, unspecified, F41.8 - Other specified anxiety disorders, G47.19 - Other hypersomnia Homocysteine Today D64.9 - Anemia, unspecified, F41.8 - Other specified anxiety disorders, G47.19 - Other hypersomnia, G47.9 - Sleep disorder, unspecified, R53.83 - Other fatigue Referrals Nephrology Referral E11.21 - Type 2 diabetes mellitus with diabetic nephropathy Patient Instructions: Sleep Hygiene provided: set a scheduled bedtime and wake time to help regulate the circadian rhythm and balance the release of pituitary hormones. Sleep in a dark room, temperatures below 68 degrees, and no devices n bed. Limit caffeinated products 6 hours prior to bed, and limit fluids 2-4 hours prior to bed. Gentle night yoga, diffusing essential oils, and playing soft music can be relaxing. 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
[2025-02-21 09:24] VITALS: BP 114/92; PULSE 138; O2SAT 95; BMI 39.2
--- OUTSIDE RECORDS SUMMARY | 2025-02-21 10:06 | XMS_ITS | Patient Health Record ---
Author Organization [facility] Address [address] [place] [address] Care Team Providers Care Vegetable Buncher Name Role Phone Ester TREJO, [place] Primary Care Provider Fuentes Arias Jr Reason For Referral No Information Medications Medication SIG (Take, Route, Fr equency, Duration) Notes Start Date End Date Status MoviPrep 100 GM as directed before c olonoscopy Orally for 1 dose 08/04/2012 05/24/2024 Active Lisinopril 20MG 05/24/2024 05/24/2024 Ac tive Problems Problem Type SNOMED Code ICD Code Onset Dates Problem Status W/U Status Risk Notes Problem Esophageal reflux (733828538) Esophageal reflux (530.81) Active confirmed Problem Colon cancer screening (316481430) Colon cancer screening (V76.51) Active confirmed Problem Right sided abdominal pain (811488922) Right sided abdominal pain (789.00) Active confirmed Plan Of Treatment Future Test Test Name Order Date COLONOSCOPY 08/04/2012 Insurance Providers Payer Name Payer Address Payer Phone Subscriber Number Group Number Insured Name Patient Relationship to Insured Coverage Start Date Coverage End Date [facility] [address] [place] [phone] [id number] STEPHANY LANDEROS Self - patient is the insured Medical (General) History Medical History History ICD Code hypertension Denies [place],DM,CVA,Lung disease,renal dise ase Surgical History Surgery Date(Month/Year) appendectomy
== END 2025-02-21 10:21 | disposition home or self-care (01) ==
LOC: HO.HSMC 09:19
PROVIDERS: PCP Family Medicine; Visit Provider Physician Assistant Medical
DX: G47.19 Other hypersomnia (principal); F41.8 Other specified anxiety disorders; R06.83 Snoring; D50.9 Iron deficiency anemia, unspecified; F41.9 Anxiety disorder, unspecified; E11.21 Type 2 diabetes mellitus with diabetic nephropathy
CPT/HCPCS: 99204

== ENCOUNTER → 2025-02-21 09:18 | Outpatient (BNVA) | payer MEDICARE, SELFPAY | PROVIDERS: PCP Family Medicine; Visit Provider Physician Assistant Medical | DX: G47.19 Other hypersomnia (principal); F41.8 Other specified anxiety disorders; R06.83 Snoring; F41.9 Anxiety disorder, unspecified; E11.21 Type 2 diabetes mellitus with diabetic nephropathy; D50.9 Iron deficiency anemia, unspecified | CPT/HCPCS: 99202 ==

== ENCOUNTER 2025-02-23 07:33 | Inpatient (IN) | payer MEDICARE, SELFPAY ==
[2025-02-23] VITALS (11 sets, daily range): BP systolic 117–148; BP diastolic 84–98; PULSE 94–140; RESP 17–36; TEMP 36.6–36.9; O2SAT 91–99; BMI 39.9
--- NOTE | ~2025-02-23 | XR_ITS ---
EXAMINATION: XR CHEST 1 VIEW HISTORY: atrial fibrillation, SOB COMPARISON: There are no prior studies available for comparison. FINDINGS: A single AP portable view of the chest performed at 8:05 AM is submitted. The lungs are expanded and clear. There is no pleural effusion, pneumothorax, or pulmonary vascular congestion. The heart is enlarged. There is degenerative disc disease of the spine. XR/XR chest 1V IMPRESSION: Cardiomegaly. The lungs are clear. Electronically signed by: Alexis Hickey MD 02/23/2025 08:27 AM EDT
--- NOTE | ~2025-02-23 | CT_ITS ---
EXAMINATION: CT ANGIOGRAM CHEST CLINICAL INFORMATION: Chest pain. Shortness of breath. COMPARISON: None available. TECHNIQUE: Multiple axial images were obtained through the chest after the administration of 65 mL of Omnipaque 350 intravenous contrast. Extensive vascular post-processing including two-dimensional and three-dimensional reformatted images were created and reviewed on an independent workstation. SmartPrep technique. This CT examination was performed using dose optimization techniques as appropriate, variously including the following: *Automated exposure control *Adjustment of mA and/or kV according to patient size (this includes techniques or standardized protocols for targeted exams where dose is matched to indication/reason for exam; i.e. extremities or head) *Use of iterative reconstruction technique DLP: 418 mGy centimeter. FINDINGS: Main pulmonary artery or its main left and right branches and subsegmental pulmonary artery branches demonstrated normal IV contrast enhancement without intraluminal filling defects. Calcified plaque thoracic aorta wall and its main branches without gross aneurysm. Calcified plaques in the coronary arteries. Enlarged heart all 4 chambers. Bilateral multifocal patchy pulmonary groundglass. No pneumothorax. No pericardial effusion. Nonspecific prominent mediastinal and perihilar lymph nodes. No pleural effusion. No calcified pleural plaques. No hemothorax. No pneumomediastinum. No gross pulmonary nodules. No gross bronchiectasis or honeycombing. The airway is patent. No gross acute rib fracture. No hyperinflation. Multilevel thoracic spondylosis. No acute fracture in the sternum. CT/CT angio chest PE protocol IMPRESSION: No acute coronary artery emboli. No aneurysm, thoracic aorta. Cardiomegaly and likely mild interstitial lung edema in the correct clinical settings. Coronary artery disease and atherosclerosis disease. Fleischner guidelines were followed. Electronically signed by: Carl Patel MD 02/23/2025 10:51 AM EDT
--- NOTE | 2025-02-23 07:35 | ECG_ITS ---
Test Reason : chest pain Blood Pressure : */* mmHG Vent. Rate : 160 BPM Atrial Rate : * BPM P-R Int : * ms QRS Dur : 90 ms QT Int : 300 ms P-R-T Axes : * -39 132 degrees QTcB Int : 489 ms Poor data quality, interpretation may be adversely affected Atrial fibrillation with rapid ventricular response with premature ventricular or aberrantly conducted complexes Left axis deviation Nonspecific ST and T wave abnormality Abnormal ECG No previous ECGs available Referred By: Generic ED Physician Electronically Signed By: FLORIAN ARMSTRONG
--- NOTE | 2025-02-23 07:53 | ED.GENADULT ---
HPI - General Adult General Chief complaint: Arrhythmia/Palpitations Stated complaint: Chest Pain SOB Time Seen by Provider: 02/23/25 07:53 History of Present Illness ED Provider: Antonio LOJA narrative: The patient is a 64-year-old male with a history of hypertension. He is on metoprolol and amlodipine. He says he has never been diagnosed with atrial fibrillation. He says that for the last week he has had a frequent sense of his heart racing. He thought about coming to the hospital earlier than today but he did not want to come to the hospital with his . He says that when he comes to the hospital his his can be very domineering. Apparently his went away for a vacation yesterday. He had significant symptoms of his heart racing during the night. He called his son this morning who advised him to come to the hospital. The patient then drove himself to the hospital. The patient also feels that he has gained a lot of weight in the last 1-2 months. He feels that he has swelling in his legs and swelling of his abdomen. He has had some mild intermittent sense of shortness of breath and chest discomfort. No fever, sweats, chills. No cough or sputum. No abdominal pain, nausea, vomiting. Related Data Home Medications ?Medication ?Instructions ?Recorded ?Confirmed amlodipine 10 mg tablet 10 mg PO DAILY 02/23/25 02/23/25 insulin glargine 100 unit/mL (3 75 unit subcut BEDTIME 02/23/25 02/23/25 mL) subcutaneous pen (Basaglar KwikPen U-100 Insulin) uoyqcmsz-zsn-qtbrs acid 200 1 tab PO DAILY 02/23/25 02/23/25 mcg-vit K1 60 mcg-lycopene 600 mcg tablet (Men's Multivitamin) omeprazole 20 mg capsule,delayed 20 mg PO DAILY@0630 02/23/25 02/23/25 release Previous Rx's ?Medication ?Instructions ?Recorded lisinopril 20 mg tablet 40 mg (2 x 20 mg) PO DAILY 90 days 03/10/24 #180 tabs metoprolol succinate 25 mg 75 mg (3 x 25 mg) PO DAILY 90 days 03/10/24 tablet,extended release 24 hr #270 tabs glipizide 10 mg tablet, extended 10 mg PO DAILY 90 days #90 tabs 07/15/24 release 24 hr pen needle, diabetic 29 gauge x #100 ea 11/28/24 1/2 Allergies Allergy/AdvReac Type Severity Reaction Status Date / Time No Known Drug Allergies Allergy Unknown UNKNOWN Verified 02/23/25 08:04 Review of Systems Review of Systems: Yes all other systems are reviewed and are negative [facility] Past Medical History Medical History Essential hypertension Diabetes type 2, controlled Left ankle pain Surgical History History of surgery History of anterior cruciate ligament surgery History of appendectomy Family History Family History Father Myocardial infarction HTN (hypertension) CVD (cardiovascular disease) Mother CVD (cardiovascular disease) Brother HTN (hypertension) Diabetes mellitus Son Substance abuse in family Social History Social History Housing: House Patient Tobacco Use Status: Never used Tobacco e-Cigarette/Vaping Use: Never Used Second Hand Smoke Exposure: No Advance Directives: No Advance Directives Information Provided: No service: No Current occupational status: retired Cognitive needs: No Hearing needs: No Vision needs: Yes Physical Exam ED Vital Signs: Vital Signs - 24 hr 02/23/25 08:02 02/23/25 08:37 02/23/25 09:12 Temperature 98.5 F Pulse Rate 140 H 114 H 111 H Respiratory Rate 22 H Blood Pressure 133/92 H 131/91 H Pulse Oximetry 96 95 Oxygen Delivery Method Room Air Room Air 02/23/25 11:55 Temperature Pulse Rate Respiratory Rate Blood Pressure 117/84 Pulse Oximetry Oxygen Delivery Method BMI result Body Mass Index 39.9 Const Other: The patient is a somewhat overweight 64-year-old man who was awake and alert. He has a jovial and pleasant demeanor. He did not seem in obvious distress. Orientation/consciousness: patient oriented x3 HENMT Other: The face is symmetrical. ?Mucous membranes moist. Eyes Other: Pupils are round equal, conjunctivae are clear, extraocular movements intact Neck Other: No JVD appreciated Resp Other: No crackles heard Effort & Inspection: normal respiratory effort Auscultation: clear to auscultation bilaterally Cardio Other: The patient had a rapid and irregular heart rate. No murmur heard. GI Other: The patient has a protuberant abdomen. It is soft. No tenderness. No ascites appreciated. Skin Other: There is some mild pitting edema to both lower legs. Neuro General: patient oriented x3, tone normal, moves all extremities, no focal motor deficits and CN's II-XI intact bilaterally Extrem Other: The patient has bilateral lower extremity edema. Medications Administered Discontinued Medications Generic Name Dose Route Start Last Admin Trade Name Jaxonq PRN Reason Stop Dose Admin Furosemide 20 mg 02/23/25 11:45 02/23/25 11:55 Furosemide 20 Mg/2 Ml Vial IVPUSH 02/23/25 11:46 20 mg ONCE ONE Administration Protocol Iohexol 100 ml 02/23/25 10:39 02/23/25 10:39 Iohexol 350 Mg/Ml 100 Ml Infus..Btl IV 02/23/25 10:40 65 ml ONCE ONE Administration Metoprolol Tartrate 5 mg 02/23/25 07:57 02/23/25 08:13 Metoprolol Tartrate 5 Mg/5 Ml Vial IVPUSH 02/23/25 07:58 5 mg ONCE ONE Administration Protocol Metoprolol Tartrate 50 mg 02/23/25 08:19 02/23/25 08:37 Metoprolol Tartrate 50 Mg Tablet PO 02/23/25 08:20 50 mg ONCE ONE Administration Protocol Metoprolol Tartrate 5 mg 02/23/25 08:19 02/23/25 08:45 Metoprolol Tartrate 5 Mg/5 Ml Vial IVPUSH 02/23/25 08:20 5 mg ONCE ONE Administration Protocol Medical Decision Making Medical Decision Making [facility] Narrative: The patient is a very pleasant 64-year-old with a history of hypertension and type 2 diabetes who has developed increasing body edema over the last several weeks and he has also had a sense of racing heart rate and palpitations over the last week. He comes in today in his found to be in atrial fibrillation with a rapid ventricular response as high as 160. He is normally on metoprolol. He was given IV metoprolol as well as oral metoprolol. His blood pressure improved. He seemed to complain of intermittent dyspnea. He seems to describe having had some paroxysmal nocturnal dyspnea at home. Chest x-ray did not show obvious signs of pulmonary edema. A CT scan of his chest shows no evidence of pulmonary embolism. The CT scan suggests some degree of mild pulmonary edema. In addition to rate control with metoprolol he was given IV furosemide. I believe the patient probably has some degree of a cardiomyopathy. The CT described 4 chamber enlargement of his heart. He has cardiomegaly. The patient describes a fairly liberal amount of alcohol use. 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 He will be admitted to the hospitalist service for further care. Lab Data 02/23/25 08:23 02/23/25 08:23 Labs: Lab Results 02/23/25 Range/Units 08:23 WBC 7.0 (4.8-10.8) X10*3/uL RBC 4.89 (4.60-5.80) X10*6/uL Hgb 14.6 (14.0-18.0) g/dl Hct 42.8 (42.0-52.0) % MCV 87.5 (80.0-98.0) fL MCH 29.9 (27.0-33.0) pg MCHC 34.1 (31.0-36.0) g/dl RDW 13.2 (11.0-16.0) % Plt Count 172 (160-400) X10*3/uL MPV 9.8 (9.4-12.4) fL Immature Gran % (Auto) 0.4 (0.0-0.4) % Neut % (Auto) 79.1 H (45-73) % Lymph % (Auto) 11.0 L (20-40) % [place] % (Auto) 8.0 (2-11) % Eos % (Auto) 1.4 (0-4) % Baso % (Auto) 0.1 (0-2) % Lymph # (Auto) 0.8 L (1.2-4.9) X10*3/uL [place] # (Auto) 0.6 (0.1-1.2) X10*3/uL Eos # (Auto) 0.1 (0.0-0.4) X10*3/uL Baso # (Auto) 0.0 (0.0-0.2) X10*3/uL Abs Immat Gran (auto) 0.03 (0.00-0.03) X10*3/uL Absolute Neuts (auto) 5.6 (2.0-8.3) x10*3/uL Absolute Nucleated RBC 0.000 (0.0-0.012) X10*3/uL Nucleated RBC % (auto) 0.0 (0.0-0.2) /100WBC PT 13.1 H (10.9-12.4) SEC INR 1.1 (0.9-1.1) Sodium 143 (135-145) mmol/L Potassium 3.9 (3.3-5.1) mmol/L Chloride 108 (96-108) mmol/L Carbon Dioxide 28 (22-29) mmol/L Anion Gap 11 L (12-20) BUN 11 (9-16) mg/dL Creatinine 0.89 (0.5-1.4) mg/dL Estim Creat Clear Calc 122.1 Estimated GFR > 60 Random Glucose 141 H (60-115) mg/dL Calcium 9.0 (8.4-10.2) mg/dL Magnesium 1.9 (1.6-2.6) mg/dL Total Bilirubin 1.3 H (0.0-1.0) mg/dL Direct Bilirubin 0.5 (0.0-0.5) mg/dL AST 19 (5-37) U/L ALT 21 (0-40) U/L Alkaline Phosphatase 67 (39-117) U/L Troponin I High Sens 28.2 (<3.5-35.0) ng/L NT-Pro-B Natriuret Pep 6314.3 H (<300) pg/mL Total Protein 6.2 L (6.5-8.0) g/dL Albumin 4.0 (3.5-5.0) g/dL TSH 2.39 (0.32-4.0) uIU/mL Ethyl Alcohol 13 mg/dL Independent Interpretation I performed an independent interpretation of an: EKG Interpretation: EKG at 07:38 shows atrial fibrillation with a rapid ventricular response at 160 beats per minute. There are ST and T-wave changes which are probably rate related. No definite acute ischemic changes. Critical Care Time Critical Care Time Critical Care Time: Yes Total Critical Care Time: 35 Attestation: The patient was critically ill with a high probability of imminent or life-threatening deterioration. ?I spent greater than 30 minutes of discontinuous time evaluating the patient, delivering critical care at the bedside, discussing evaluating data with consultants. ?Critical care time does not include time spent performing separately billable procedures or teaching. ?Time spent performing critical care with 35 minutes. Discharge Plan Discharge Clinical Impression: Atrial fibrillation with rapid ventricular response, Congestive heart failure Patient Disposition: Admitted As Inpatient
--- NOTE | 2025-02-23 08:15 | PC.NURSE ---
Pt roomed and placed on full monitor. denies SOB at this time but reports intermittent SOB also reports racing HR for last week or so on and off- provider in to eval pt. Pt in RVR afib on monitor HR 140's. Pt denies N/V and CP. Pt other VSS. IV initiated.
[2025-02-23 08:27] LABS: MANUAL DIFF FLAG NO
[2025-02-23 08:34] LABS: Hematocrit 42.8 % (42.0-52.0); Hemoglobin 14.6 g/dl (14.0-18.0); Imm Gran Abs Auto 0.03 X10*3/uL (0.00-0.03); Imm Gran Pct Auto 0.4 % (0.0-0.4); Lymphocytes Absolute Auto 0.8 X10*3/uL (1.2-4.9); Mean Corpuscular HGB Conc 34.1 g/dl (31.0-36.0); Mean Corpuscular Hemoglobin 29.9 pg (27.0-33.0); Mean Corpuscular Volume 87.5 fL (80.0-98.0); NRBC Abs Auto 0.000 X10*3/uL (0.0-0.012); NRBC Pct Auto 0.0 /100WBC (0.0-0.2); Platelet Count 172 X10*3/uL (160-400); Red Blood Count 4.89 X10*6/uL (4.60-5.80); White Blood Count 7.0 X10*3/uL (4.8-10.8)
[2025-02-23 08:36] LABS: INTERNATIONAL NORM RATIO 1.1 (0.9-1.1); Prothrombin Time 13.1 SEC (10.9-12.4)
[2025-02-23 08:52] LABS: Alanine Aminotransferase 21 U/L (0-40); Albumin Level 4.0 g/dL (3.5-5.0); Alkaline Phosphatase 67 U/L (39-117); Anion Gap 11 (12-20); Aspartate Amino Transferase 19 U/L (5-37); Blood Urea Nitrogen 11 mg/dL (9-16); Calcium 9.0 mg/dL (8.4-10.2); Carbon Dioxide 28 mmol/L (22-29); Chloride 108 mmol/L (96-108); Creatinine Clr Calc Pharmacy 122.1; Estimated Glomerular Filt Rate > 60; Magnesium 1.9 mg/dL (1.6-2.6); NT Pro B Type Natriuretic Pept 6314.3 pg/mL (<300); Potassium 3.9 mmol/L (3.3-5.1); Sodium 143 mmol/L (135-145); Total Protein 6.2 g/dL (6.5-8.0); Troponin-I High Sensitivity 28.2 ng/L (<3.5-35.0)
[2025-02-23 09:06] LABS: Thyroid Stimulating Hormone 2.39 uIU/mL (0.32-4.0)
--- OUTSIDE RECORDS SUMMARY | 2025-02-23 09:20 | XMS_ITS | Patient Health Record ---
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 Name Role Phone Ester TREJO, [place] Primary [...] W/U Status Risk Notes Problem Esophageal reflux (784784207) Esophageal reflux (530.81) Active confirmed Problem Colon cancer screening (437154214) Colon cancer screening (V76.51) Active confirmed Problem Right sided abdominal pain (841230891) Right sided abdominal pain (789.00) Active confirmed Plan Of Treatment Future Test Test Name Order Date COLONOSCOPY 08/04/2012 Insurance Providers Payer Name Payer Address Payer Phone Subscriber Number Group Number Insured Name Patient Relationship to Insured Coverage Start Date Coverage End Date [facility] [address] [facility] [phone] [id number] STEPHANY LANDEROS Self - patient is the insured Medical (General) History Medical History History ICD Code hypertension Denies [place],DM,CVA,Lung disease,renal dise ase Surgical History Surgery Date(Month/Year) appendectomy
--- NOTE | 2025-02-23 09:33 | PC.NURSE ---
Pt VSS HR ranging from 90's to 110's Other VSS No CP No N/V, SOB intermittent but O2 sat stable on RA
[2025-02-23] MEDS: iohexoL 350 MG/ML 100 ML INFUS..BTL IV (10:39)
[2025-02-23] MEDS: Furosemide 20 MG/2 ML VIAL IVPUSH (11:55)
--- NOTE | 2025-02-23 12:58 | PM.IMHP ---
History of Present Illness Date of Service: 02/23/25 Attending physician on admission: Oriana Pimentel Chief Complaint: shortness of breath This is a 64-year-old male with history of diabetes, hypertension, hyperlipidemia who presents to the emergency department with shortness of breath. Patient reports intermittent shortness of breath over the past at least 1 month time. Over the past several days the shortness of breath has been more persistent. He describes dyspnea on exertion as well as PND. He reports abdominal distention and lower extremity swelling as well as weight gain over the past several weeks. He was seen by his primary care provider about 2 weeks ago and they have planned to schedule an outpatient sleep study to rule out sleep apnea. Today in the emergency department his heart rate heart rate was elevated in the 140s, he was initially tachypneic. He received 3 doses of Lopressor with some improvement in his heart rate. Lab work was significant for elevated pro BNP at 6314. CTA obtained showed cardiomegaly and likely mild interstitial lung edema. He received a dose of IV Lasix. Patient will be admitted to the hospital for further management management of new onset atrial fibrillation with rapid ventricular response and new onset congestive heart failure. Of note patient denies drinking alcohol since 02/08 however his etoh level on arrival at 8:30 am was 13. Review of Systems Review of Systems: Yes all other systems are reviewed and are negative Constitutional: Constitutional: Denies chills and Denies fever(s) Cardiovascular: Cardiovascular: Denies chest pain, Denies palpitations, Reports dyspnea, Reports dyspnea on exertion and Reports paroxysmal nocturnal dyspnea Respiratory: Respiratory: Denies cough, Reports dyspnea and Reports dyspnea on exertion Endocrine: Endocrine: Denies palpitations [facility] Medical History Essential hypertension Diabetes type 2, controlled Left ankle pain Family History Father Myocardial infarction HTN (hypertension) CVD (cardiovascular disease) Mother CVD (cardiovascular disease) Brother HTN (hypertension) Diabetes mellitus Son Substance abuse in family Surgical History History of surgery History of anterior cruciate ligament surgery History of appendectomy Social History Housing: House Patient Tobacco Use Status: Never used Tobacco e-Cigarette/Vaping Use: Never Used Second Hand Smoke Exposure: No Advance Directives: No Advance Directives Information Provided: No service: No Current occupational status: retired Cognitive needs: No Hearing needs: No Vision needs: Yes Meds Allergies Allergy/AdvReac Type Severity Reaction Status Date / Time No Known Drug Allergies Allergy Unknown UNKNOWN Verified 02/23/25 08:04 Active Medications: Current Medications Acetaminophen (Acetaminophen 325 Mg Tablet) 650 mg PO Q6H PRN PRN Reason: Pain, Mild 1-3,fever,headache Calcium Carbonate (Calcium Carbonate 750 Mg Tab.Chew) 750 mg PO Q4H PRN PRN Reason: Heartburn Magnesium Hydroxide (Milk Of Magnesia 30 Ml Oral.Susp) 30 ml PO DAILY PRN PRN Reason: Constipation Melatonin (Melatonin 3 Mg Tablet) 6 mg PO BEDTIME PRN PRN Reason: Insomnia Sodium Chloride (0.9 % Sodium Chloride Flush 3 Ml Syringe) [facility] Medications ?Medication ?Instructions ?Recorded ?Confirmed ?Last Taken ?Type amlodipine 10 mg tablet 10 mg PO DAILY 02/23/25 02/23/25 02/22/25 History insulin glargine 100 unit/mL (3 75 unit subcut BEDTIME 02/23/25 02/23/25 02/21/25 History mL) subcutaneous pen (Basaglar KwikPen U-100 Insulin) qpecascu-jhu-vcqdz acid 200 1 tab PO DAILY 02/23/25 02/23/25 02/22/25 History mcg-vit K1 60 mcg-lycopene 600 mcg tablet (Men's Multivitamin) omeprazole 20 mg capsule,delayed 20 mg PO DAILY@0630 02/23/25 02/23/25 02/22/25 History release Physical Exam Vital Signs and Narrative: Vital Signs: Last Vital Signs Temp 98.5 F 02/23/25 08:02 Pulse 111 H 02/23/25 09:12 Resp 22 H 02/23/25 08:02 BP 117/84 02/23/25 11:55 Pulse Ox 95 02/23/25 09:12 O2 Del Method Room Air 02/23/25 09:12 BMI result Body Mass Index 39.9 Const: General: alert and awake Nutritional Appearance: obese Orientation/consciousness: patient oriented x3 Resp: Effort & Inspection: normal respiratory effort, able to speak in complete sentences, no respiratory distress and no use of accessory muscles Auscultation: clear to auscultation bilaterally Cardio: Rate: tachycardic Rhythm: abnormal rhythm irregularly irregular GI: Other: softly distended Palpation (GI): Soft to palpation and nontender Neuro: General: patient oriented x3, moves all extremities and CN's II-XI intact bilaterally Extrem: Other: bilateral lower extremity edema Results Labs 02/23/25 08:23 02/23/25 08:23 Labs: Laboratory Results - last 24 hr 02/23/25 08:23 MCV 87.5 MCH 29.9 MCHC 34.1 RDW 13.2 Plt Count 172 MPV 9.8 Immature Gran % (Auto) 0.4 Neut % (Auto) 79.1 H Lymph % (Auto) 11.0 L [place] % (Auto) 8.0 Eos % (Auto) 1.4 Baso % (Auto) 0.1 Lymph # (Auto) 0.8 L [place] # (Auto) 0.6 Eos # (Auto) 0.1 Baso # (Auto) 0.0 Abs Immat Gran (auto) 0.03 Absolute Neuts (auto) 5.6 Absolute Nucleated RBC 0.000 Nucleated RBC % (auto) 0.0 PT 13.1 H INR 1.1 Anion Gap 11 L Estim Creat Clear Calc 122.1 Estimated GFR > 60 Random Glucose 141 H Calcium 9.0 Magnesium 1.9 Total Bilirubin 1.3 H Direct Bilirubin 0.5 AST 19 ALT 21 Alkaline Phosphatase 67 Troponin I High Sens 28.2 NT-Pro-B Natriuret Pep 6314.3 H Total Protein 6.2 L Albumin 4.0 TSH 2.39 Ethyl Alcohol 13 Imaging Radiologist's Impressions: Impressions Chest X-Ray 02/23/25 08:04 IMPRESSION: Cardiomegaly. The lungs are clear. Electronically signed by: Alexis Hickey MD 02/23/2025 08:27 AM EDT Chest CTA 02/23/25 10:28 IMPRESSION: No acute coronary artery emboli. No aneurysm, thoracic aorta. Cardiomegaly and likely mild interstitial lung edema in the correct clinical settings. Coronary artery disease and atherosclerosis disease. Fleischner guidelines were followed. Electronically signed by: Carl Patel MD 02/23/2025 10:51 AM EDT RP Assessment and Plan (1) Atrial fibrillation with rapid ventricular response: Status: Acute (2) Congestive heart failure: Status: Acute Plan This is a 64-year-old male with history of HTN, HLD, DM, morbid obesity and etoh use who presents to the emergency department with intermittent shortness of breath found to have new onset atrial fibrillation and CHF New onset atrial fibrillation with rapid ventricular response Received 2 doses of IV Lopressor and oral Lopressor any; continue Lopressor 25 mg q.6 hours TSH, electrolytes within normal limit [id number] score 2, start anticoagulation with Eliquis Obtain echocardiogram Cardiology consultation Probable new onset CHF, unspecified no h/o CHF imaging with interstitial edema, proBNP >6000 Lower extremity edema, abdominal distention, weight gain, PND and HAND Received a dose of Lasix in the ED, re-assess need for ongoing diuresis in am low sodium diet follow up results of echocardiogram Cardiology consultation as above morbid obesity BMI 39.9 weight loss encouraged AUD pt denies drinking etoh, reports intermittent etoh use, but denies any etoh since mid-january etoh level in ED in am 13, suggesting alcohol intake No evidence of alcohol withdrawal at this Monitor on CIWA DM hold glipizide continue Insulin SSI, POCs, ADA diet HTN continue baseline meds Patient will likely require 2 midnight stay in the hospital for management of new onset atrial fibrillation with rapid ventricular response, new onset congestive heart failure requiring close cardiac monitoring, and monitoring of respiratory status, specialist evaluation Quality Stroke Does the patient have a stroke diagnosis?: No VTE Prior VTE?: No VTE Risk Level:: Medical - moderate - high VTE Device Contraindication: Treatment Not Indicated VTE Drug Contraindication: N/A - Med Ordered
--- NOTE | 2025-02-23 13:01 | PHA.MEDREC ---
Addendum entered by Nathaly Benton RPh 02/23/25 14:08: MED REC REVIEWED BY [facility] Original Note: Pharmacy Consult ? Medication Reconciliation Pharmacy has completed the medication reconciliation. Spoke with pt and he confirmed he has on hand Rx bottles and confirmed his medications with me. Pt still takes Glipizide 10mg QD but has an empty Rx bottle with him with LF 10/23/24 for 90 days. Pt confirmed his Basaglar Kwikpen injecting 75 units at bedtime.
--- NOTE | 2025-02-23 15:00 | CA_ITS ---
Transthoracic Echocardiogram Patient (Last, First, Middle): Buck Warren M Gender: M Date of : 1960 Age: 64 Procedure Date: 02/23/2025 Procedure Type: Transthoracic Echocardiogram Location: ER Height: 187.96 cm Weight: 141.07 kg BSA: 2.62 m2 Heart Rate: bpm BP: 125 / 86 mmHg Clerk Manager: Referring MD: Ira GRAHAM Symptoms: new afib, chf Study Quality: Technically Difficult due to body habitus ECG Rhythm: Atrial Fibrillation Conclusions: - The left ventricular systolic function is severely decreased. The calculated ejection fraction is 16% by biplane method. - No obvious valvular pathology seen on this study. Findings Procedure Information Contrast agent, definity, is being given per protocol without apparent complications. Left Ventricle Normal left ventricular cavity size. There is moderately increased left ventricular wall thickness. The left ventricular systolic function is severely decreased. The calculated ejection fraction is 16% by biplane method. There is severe global hypokinesis. Diastolic function is indeterminate on the basis of available data. Right Ventricle Mildly increased right ventricular cavity size. There is low normal right ventricular systolic function. Atria Both atria are normal in size. Aortic Valve The aortic valve was not well visualized. There is no aortic valve stenosis. There is no aortic valve regurgitation. Mitral Valve The mitral valve appears normal. There is no mitral valve regurgitation. There is no mitral valve stenosis. Pulmonic Valve The pulmonic valve is likely normal. Tricuspid Valve There is trace tricuspid valve regurgitation. There is no evidence of pulmonary hypertension. Great Vessels The asc aorta is normal in size. Venous The inferior vena cava was not well visualized. The inferior vena cava is dilated. Pericardium/Pleural There is no evidence of pericardial effusion. Prior Study Comparison No prior study available for comparison. Recommendations, Care & Conclusions No obvious valvular pathology seen on this study. Measurements 2D Linear Measurements IVSd: 1.38 0.6-0.9/0.6-1.0 cm LVIDd: 5.64 3.9-5.3/4.2-5.9 cm LVIDd Index: 2.15 2.4-3.2/2.2-3.1 cm/m2 LVIDs: 4.90 2.0-3.6 cm LVPWd: 1.36 0.7-1.1 cm Ao Root: 4.00 2.1-3.5 cm LA Diam: 4.40 2.7-3.8/3.0-4.0 cm LAIDs Index: 1.68 1.5-2.3 cm/m2 LV Mass: 425.44 67-162/88-224 g LV Mass Index: 162.38 43-95/49-115 g/m2 LVOT Diam: 2.10 3.0+(-)1.3 cm 2D Systolic Function EF 4C: 14.50 >55% EF 2C: 19.50 >55% EF BiP: 16.40 >55% Mitral Valve MV Pk E: 0.77 MV Decel Time: 89.00 E'Lateral: 5.66 E'Medial: 3.92 E/E' Med: 19.60 E/E' Lat: 13.60 PHT: 26.00 MVA PHT: 8.46 Decel [place]: 8.62 Aortic Valve AoV Pk Domo: 0.79 AoV Mn Domo: 0.56 AoV VTI: 0.15 AoV Pk Grad: 2.00 Aov Mn Grad: 1.00 JAYA Cont.VTI: 2.10 LVOT LVOT Pk Domo: 0.55 LVOT Mn Domo: 0.34 LVOT VTI: 0.09 LVOT Pk Grad: 1.00 LVOT Mn Grad: 1.00 LVOT Diam: 2.10 LVOT Area: 3.46 Diastolic Function MV Pk E: 0.77 E'Medial: 3.92 E/E' Med: 19.60 E' Laterial: 5.66 E/E' Lat: 13.60 Right Ventricle TAPSE (mm): 16.00 TVS' Domo: 9.00 Tricuspid Valve TR Pk Domo: 1.77 TR Pk Grad: 13.00 RA Press: 15.00 RVSP: 28.00 Great Vessels Aorta Ao Root-2D: 4.00 2.0-3.7 cm Ao Asc: 3.80 2.1-3.4 cm Pulmonary Valve PV Pk Domo: 0.61 Peak PV Grad: 1.00 Updated in Other Vendor System with Status of Final Kristopher Martin MD electronically signed on 02/23/2025 3:47:23 PM with status of Final
[2025-02-23 15:44] LABS: Cannabinoid Screen Urine Not Detected (Not Detect)
[2025-02-23] MEDS: 0.9 % Sodium Chloride Flush 3 ML SYRINGE IVFLUSH ×2 (17:00→23:11)
[2025-02-23 19:03] LABS: Glucose, Whole Blood 125 mg/dL (60-115)
[2025-02-23] MEDS: Insulin Glargine,Hum.rec.anlog 100 UNIT/ML 10 ML VIAL 50 UNIT SUBCUT (20:44)
[2025-02-23 21:04] LABS: Glucose, Whole Blood 140 mg/dL (60-115)
--- NOTE | 2025-02-23 21:48 | HO.NURTONUR ---
Addendum entered by Luiza Wong RN 02/24/25 07:43: Care of Pt assumed at change of shift. A&Ox3 NAD Pt sitting in recliner. Report from overnight RN that Pt required 2L O2 while sleeping for brief desat, otherwise Pt not in need of O2. Pt has been NPO since midnight for ablation procedure today. Original Note: Pt here w/ c/o heart racing x 1 week. Pt states he didnt come to the hospital just yet because his would have accompanied him and she be very domineering and rude to the nurses. Pt arrived in afib w/ RVR @ 180. Pt also c/o orthopnea and paroxysmal chest pressure when lying flat. CT shows mild cardiomegaly. Pt tx'd w/ IV and po metoprolol anc continues w/ afib in 90's. Pt is on RA, however, does endorse HAND but tolerates ambulation fairly well. Pt has been npo after midnight for ablation tomorrow.
--- NOTE | 2025-02-23 23:13 | PC.NURSE ---
Assumed care of patient at this time no complaints at this time, ambulated to bathroom with steady gait, resting comfortably in recliner. given a up of ice water and reminded nothing by mouth after midnight.
[2025-02-24] VITALS (16 sets, daily range): BP systolic 115–157; BP diastolic 67–105; PULSE 56–124; RESP 14–21; TEMP 35.8–36.7; O2SAT 93–98; BMI 40.2
--- NOTE | 2025-02-24 01:46 | PC.NURSE ---
While sleeping patient patient oxygen dropped to 84% placed on 2L NC 95%
[2025-02-24 06:42] LABS: Anion Gap 10 (12-20); Blood Urea Nitrogen 17 mg/dL (9-16); Calcium 8.7 mg/dL (8.4-10.2); Carbon Dioxide 29 mmol/L (22-29); Chloride 109 mmol/L (96-108); Creatinine Clr Calc Pharmacy 100.6; Estimated Glomerular Filt Rate > 60; Potassium 3.8 mmol/L (3.3-5.1); Sodium 144 mmol/L (135-145)
--- NOTE | 2025-02-24 07:19 | P.PNIM_ITS ---
Subjective Subjective Date of Service: 02/24/25 Interval History: Underwent successful cardioversion Started him on amiodarone for rhythm control GDM T initiated with Entresto Continue anticoagulation with Eliquis We will need to initiate Jardiance , spironolactone, beta blockers based on hemodynamics (currently appears to be mildly bradycardic with normal blood pressure) Maintain on telemetry LVEF by echo on 02/23/2025-16% Review of Systems Review of Systems: Yes all other systems are reviewed and are negative Physical Exam 2 Exam: Exam: General: AOx3, no acute distress Resp: Bilateral crackles noted CVS: S1, S2, RRR GI: +BS, NT, no distention Neuro: Motor grossly intact bilaterally Extremities: Mild bilateral pitting pedal edema up to shins Psych: Appropriate affect Vital Signs: Vital Signs: Last Vital Signs Temp 97.5 F 02/24/25 05:38 Pulse 93 02/24/25 05:38 Resp 14 02/24/25 05:38 BP 151/100 H 02/24/25 05:38 Pulse Ox 98 02/24/25 05:38 O2 Del Method Nasal Cannula 02/24/25 05:38 O2 Flow Rate 2 02/24/25 05:38 BMI result Body Mass Index 39.9 Objective Data Active Medications Acetaminophen (Acetaminophen 325 Mg Tablet) 650 mg PO Q6H PRN PRN Reason: Pain, Mild 1-3,fever,headache Apixaban (Apixaban 5 Mg Tablet) 5 mg PO BID [facility] Last Admin: 02/23/25 20:43 Dose: 5 mg Documented By: CATHERINE Calcium Carbonate (Calcium Carbonate 750 Mg Tab.Chew) 750 mg PO Q4H PRN PRN Reason: Heartburn Dextrose (Dextrose 50 % 25 Gm/50 Ml Syringe) 25 gm IVPUSH Q15M PRN; Protocol PRN Reason: per Hypoglycemia Standing Ord. Glucose (Glucose Gel 15 Gm Gel..Gram.) 15 gm PO Q15M PRN; Protocol PRN Reason: per Hypoglycemia Standing Ord. Insulin Glargine (Insulin Glargine,Hum.Rec.Anlog 100 Unit/Ml 10 Ml Vial) 50 unit SUBCUT BEDTIME [facility] Last Admin: 02/23/25 20:44 Dose: 50 unit Documented By: CATHERINE Insulin Human Lispro (Insulin Lispro 100 Unit/Ml 3 Ml Vial) 0 unit SUBCUT QIDACHS [facility]; Protocol Last Admin: 02/23/25 21:03 Dose: Not Given Documented By: CATHERINE Non-Admin Reason: No Insulin Coverage Magnesium Hydroxide (Milk Of Magnesia 30 Ml Oral.Susp) 30 ml PO DAILY PRN PRN Reason: Constipation Melatonin (Melatonin 3 Mg Tablet) 6 mg PO BEDTIME PRN PRN Reason: Insomnia Metoprolol Tartrate (Metoprolol Tartrate 25 Mg Tablet) 25 mg PO Q6H [facility]; Protocol Last Admin: 02/24/25 01:45 Dose: 25 mg Documented By: PATI Multivitamins/Vitamin C (Multivitamin Tablet) 1 tab PO DAILY [facility] Omeprazole (Omeprazole 20 Mg Capsule.Dr) 20 mg PO DAILY@0630 [facility] Last Admin: 02/24/25 05:42 Dose: 20 mg Documented By: PATI Sodium Chloride (0.9 % Sodium Chloride Flush 3 Ml Syringe) 3 ml IVFLUSH QSHIFT [facility] Last Admin: 02/23/25 23:11 Dose: 3 ml Documented By: PATI Labs 02/23/25 08:23 02/24/25 06:13 Labs: Laboratory Results - last 24 hr 02/23/25 02/23/25 02/23/25 08:23 15:23 18:30 MCV 87.5 MCH 29.9 MCHC 34.1 RDW 13.2 Plt Count 172 MPV 9.8 Immature Gran % (Auto) 0.4 Neut % (Auto) 79.1 H Lymph % (Auto) 11.0 L [place] % (Auto) 8.0 Eos % (Auto) 1.4 Baso % (Auto) 0.1 Lymph # (Auto) 0.8 L [place] # (Auto) 0.6 Eos # (Auto) 0.1 Baso # (Auto) 0.0 Abs Immat Gran (auto) 0.03 Absolute Neuts (auto) 5.6 Absolute Nucleated RBC 0.000 Nucleated RBC % (auto) 0.0 PT 13.1 H INR 1.1 Anion Gap 11 L Estim Creat Clear Calc 122.1 Estimated GFR > 60 POC Glucose 125 H Random Glucose 141 H Calcium 9.0 Magnesium 1.9 Total Bilirubin 1.3 H Direct Bilirubin 0.5 AST 19 ALT 21 Alkaline Phosphatase 67 Troponin I High Sens 28.2 NT-Pro-B Natriuret Pep 6314.3 H Total Protein 6.2 L Albumin 4.0 TSH 2.39 Urine Opiates Screen Not Detected Ur Buprenorphine Scrn Not Detected Ur Oxycodone Screen Not Detected Urine Methadone Screen Not Detected Urine Fentanyl Screen Not Detected Ur Barbiturates Screen Not Detected Ur Phencyclidine Scrn Not Detected Ur Amphetamines Screen Not Detected U Benzodiazepines Scrn Not Detected Urine Cocaine Screen Not Detected U Marijuana (THC) Screen Not Detected Ethyl Alcohol 13 02/23/25 02/24/25 21:00 06:13 MCV MCH MCHC RDW Plt Count MPV Immature Gran % (Auto) Neut % (Auto) Lymph % (Auto) [place] % (Auto) Eos % (Auto) Baso % (Auto) Lymph # (Auto) [place] # (Auto) Eos # (Auto) Baso # (Auto) Abs Immat Gran (auto) Absolute Neuts (auto) Absolute Nucleated RBC Nucleated RBC % (auto) PT INR Anion Gap 10 L Estim Creat Clear Calc 100.6 Estimated GFR > 60 POC Glucose 140 H Random Glucose 83 Calcium 8.7 Magnesium Total Bilirubin Direct Bilirubin AST ALT Alkaline Phosphatase Troponin I High Sens NT-Pro-B Natriuret Pep Total Protein Albumin TSH Urine Opiates Screen Ur Buprenorphine Scrn Ur Oxycodone Screen Urine Methadone Screen Urine Fentanyl Screen Ur Barbiturates Screen Ur Phencyclidine Scrn Ur Amphetamines Screen U Benzodiazepines Scrn Urine Cocaine Screen U Marijuana (THC) Screen Ethyl Alcohol Assessment and Plan (1) Atrial fibrillation with rapid ventricular response: Status: Acute Plan Patient is a 64-year-old male with prior history of HTN, HLD, dm, 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 Alcohol-induced cardiomyopathy versus prior deconditioning Initiated amiodarone, Eliquis, Entresto, Initiated Lasix 40 IV b.i.d. for diuresis We will also need beta-dima, spironolactone, Jardiance based on hemodynamics Tele Troponin Patient symptom-free HTN-started him on Entresto, DC lisinopril , we will initiate beta-dima once heart rate improves DM -Insulin being adjusted and uptitrate to maintain euglycemia HLD -Continue statins DELVIS- we will need outpatient sleep study Depression anxiety-continue home meds History of a UD-denies ongoing alcohol use, negative BAL tox screen on admission we will monitor for withdrawal symptoms Given severe new diagnosis of AFib with RVR, severe HFrEF, we will need close monitoring and adjusting his This note is constructed using voice recognition software. While every effort has been made to ensure accuracy, finance mgr errors may have been included. Quality Stroke Does the patient have a stroke diagnosis?: No VTE Prior VTE?: No VTE Risk Level:: Medical - moderate - high VTE Device Contraindication: Treatment Not Indicated VTE Drug Contraindication: N/A - Med Ordered
[2025-02-24 08:00] LABS: Glucose, Whole Blood 73 mg/dL (60-115)
[2025-02-24] MEDS: 0.9 % Sodium Chloride Flush 3 ML SYRINGE IVFLUSH ×3 (08:00→20:29)
--- NOTE | 2025-02-24 09:04 | MHC.SHP ---
Pre-Procedural Eval Section A - 24 Hr Update-Section A only Date of Service: 02/24/25 The patient is an INPATIENT: Yes Section B - Complete if H&P > 30 days Chief Complaint: new afib, chf Allergies: Allergies Allergy/AdvReac Type Severity Reaction Status Date / Time No Known Drug Allergies Allergy Unknown UNKNOWN Verified 02/23/25 08:04 Plan I have reviewed the history and physical and performed a pertinent physical examination on my patient. No changes have occurred unless specified. Time Spent With Patient Time: Total time managing care of this patient today ____ minutes.
--- NOTE | 2025-02-24 09:05 | HO.CARDIVERS ---
Cardioversion Procedure Note Cardioversion Date of Procedure: 02/24/2025 Pre-Op Diagnosis: Atrial fibrillation rapid ventricular response Post-Op Diagnosis: Sinus rhythm Consent: Informed consent obtained. Procedure: After informed consent was obtained, patient was taken to the operating room. A transesophageal echocardiogram was initially performed and that showed no evidence of left atrial appendage thrombus. Following this, 150 joules of synchronized shock was administered. Then converted from atrial fibrillation sinus rhythm. He remained in sinus rhythm at the end of procedure. Complications: None. Impression: Successful cardioversion from atrial fibrillation to sinus rhythm. Recommendations: Start amiodarone. Continue anticoagulation.
--- NOTE | 2025-02-24 09:06 | P.CONCA_ITS ---
History of Present Illness History of Present Illness Date of Service: 02/24/25 Chief complaint: new afib, chf Narrative: This is a cardiology consultation regarding atrial fibrillation and congestive heart failure. Patient denies any prior cardiac symptoms. He has had apparently palpitations off and on for a while but more persistently for the last few weeks. He has also been feeling short of breath with activity and leg swelling. This led to ER presentation where he was diagnosed to have atrial fibrillation with rapid ventricular response. Then he had an echocardiogram that showed severely diminished LVEF and hence we are consulted. Possibly excessive alcohol use but not entirely clear. Variable answers. Review of Systems 2 Review of Systems: Yes all other systems are reviewed and are negative Constitutional: Constitutional: Reports as per HPI and Reports no additional constitutional complaints Eyes: Eyes: Reports as per HPI and Denies no additional eye complaints ENT: Denies system reviewed and no additional complaints, except as documented and Reports as per HPI Cardiovascular: Cardiovascular: Reports as per HPI, Reports no additional cardiovascular complaints, Denies acrocyanosis, Denies cool extremities, Denies chest pain, Reports leg edema, Denies lightheadedness, Reports palpitations and Reports dyspnea Respiratory: Respiratory: Reports as per HPI, Denies no additional respiratory complaints and Reports dyspnea Gastrointestinal: Gastrointestinal: Reports as per HPI and Denies no additional gastrointestinal complaints Genitourinary: Genitourinary: Reports no additional male genitourinary complaints and Reports as per HPI Musculoskeletal: Musculoskeletal: Reports no additional musculoskeletal complaints and Reports as per HPI Integumentary/Breasts: Skin/Breast: Reports system reviewed and no additional complaints, except as docu Neurologic: Reports system reviewed and no additional complaints, except as documented and Reports as per HPI Psychiatric: Psychiatric: Reports no additional psychiatric complaints and Reports as per HPI Endocrine: Endocrine: Reports no additional endocrine complaints, Reports as per HPI and Reports palpitations Hematologic/Lymphatic: Hematologic/Lymphatic: Reports no additional hematologic/lymphatic complaints and Reports as per HPI Allergic/Immunologic: Allergic/Immunologic: Reports no additional allergic/immunologic complaints and Reports as per HPI PMF Past Medical History Medical History Essential hypertension Diabetes type 2, controlled Left ankle pain Family History Family History Father Myocardial infarction HTN (hypertension) CVD (cardiovascular disease) Mother CVD (cardiovascular disease) Brother HTN (hypertension) Diabetes mellitus Son Substance abuse in family Surgical History Surgical History History of surgery History of anterior cruciate ligament surgery History of appendectomy Social History Social History (Updated 02/24/25 @ 09:51 by Kristopher Martin MD) Household Members: Spouse Housing: Apartment Do you presently have visiting nurse or other home services: No Alcohol intake: current Patient Tobacco Use Status: Never used Tobacco e-Cigarette/Vaping Use: Never Used Second Hand Smoke Exposure: No service: No Current occupational status: retired Cognitive needs: No Hearing needs: No Vision needs: Yes Meds Allergies Allergy/AdvReac Type Severity Reaction Status Date / Time No Known Drug Allergies Allergy Unknown UNKNOWN Verified 02/23/25 08:04 Active Medications: Current Medications Acetaminophen (Acetaminophen 325 Mg Tablet) 650 mg PO Q6H PRN PRN Reason: Pain, Mild 1-3,fever,headache Apixaban (Apixaban 5 Mg Tablet) 5 mg PO BID [facility] Last Admin: 02/23/25 20:43 Dose: 5 mg Calcium Carbonate (Calcium Carbonate 750 Mg Tab.Chew) 750 mg PO Q4H PRN PRN Reason: Heartburn Dextrose (Dextrose 50 % 25 Gm/50 Ml Syringe) 25 gm IVPUSH Q15M PRN; Protocol PRN Reason: per Hypoglycemia Standing Ord. Glucose (Glucose Gel 15 Gm Gel..Gram.) 15 gm PO Q15M PRN; Protocol PRN Reason: per Hypoglycemia Standing Ord. Insulin Glargine (Insulin Glargine,Hum.Rec.Anlog 100 Unit/Ml 10 Ml Vial) 50 unit SUBCUT BEDTIME [facility] Last Admin: 02/23/25 20:44 Dose: 50 unit Insulin Human Lispro (Insulin Lispro 100 Unit/Ml 3 Ml Vial) 0 unit SUBCUT QIDACHS [facility]; Protocol Last Admin: 02/24/25 07:29 Dose: Not Given Magnesium Hydroxide (Milk Of Magnesia 30 Ml Oral.Susp) 30 ml PO DAILY PRN PRN Reason: Constipation Melatonin (Melatonin 3 Mg Tablet) 6 mg PO BEDTIME PRN PRN Reason: Insomnia Metoprolol Tartrate (Metoprolol Tartrate 25 Mg Tablet) 25 mg PO Q6H [facility]; Protocol Last Admin: 02/24/25 07:58 Dose: 25 mg Multivitamins/Vitamin C (Multivitamin Tablet) 1 tab PO DAILY [facility] Omeprazole (Omeprazole 20 Mg Capsule.) 20 mg PO DAILY@06 [facility] Last Admin: 02/24/25 05:42 Dose: 20 mg Sodium Chloride (0.9 % Sodium Chloride Flush 3 Ml Syringe) 3 ml IVFLUSH QSHIFT [facility] Last Admin: 02/24/25 08:00 Dose: 3 ml Home Medications ?Medication ?Instructions ?Recorded ?Confirmed ?Last Taken ?Type amlodipine 10 mg tablet 10 mg PO DAILY 02/23/2508/1502/22/25 History insulin glargine 100 unit/mL (3 75 unit subcut BEDTIME 02/23/25 02/23/25 02/21/25 History mL) subcutaneous pen (Basaglar KwikPen U-100 Insulin) owgrlmvj-ddt-jsidt acid 200 1 tab PO DAILY 02/23/2502/22/25 History mcg-vit K1 60 mcg-lycopene 600 mcg tablet (Men's Multivitamin) omeprazole 20 mg capsule,delayed 20 mg PO DAILY@0630 1 02/23/25 02/22/25 History release Physical Exam 2 Vital Signs: Vital Signs: Last Vital Signs Temp 97.2 F 02/24/25 08:44 Pulse 99 02/24/25 08:44 Resp 18 02/24/25 08:44 BP 129/105 H 02/24/25 08:44 Pulse Ox 95 02/24/25 08:44 O2 Del Method Room Air 02/24/25 08:44 O2 Flow Rate 2 02/24/25 05:38 BMI result Body Mass Index 39.9 Const: General: comfortable and no acute distress O rientation/consciousness: patient oriented x3 HEENT: Other: Unremarkable Head: Yes normal to inspection Neck: Neck: Yes normal visual inspection Chest: Chest palpation & inspection: normal inspection of the chest Resp: Auscultation: clear to auscultation bilaterally Cardio: Palpation: normal PMI Heart sounds: S1 normal heart sound present, S2 normal heart sound present, no gallops, no murmurs and no rubs GI: Palpation (GI): Soft to palpation Back/Spine/Pelvis: Other: unremarkable Skin: General skin exam: no rashes or lesions noted Neuro: General: patient oriented x3 Extrem: General: Yes normal to inspection Psych: Mental Status: mental status grossly normal Objective Labs and Meds 02/23/25 08:23 02/24/25 06:13 Lab results: Laboratory Results - last 24 hr 02/23/25 02/23/25 02/23/25 08:23 15:23 18:30 Sodium Potassium Chloride Carbon Dioxide Anion Gap BUN Creatinine Estim Creat Clear Calc Estimated GFR POC Glucose 125 H Random Glucose Calcium TSH 2.39 Urine Opiates Screen Not Detected Ur Buprenorphine Scrn Not Detected Ur Oxycodone Screen Not Detected Urine Methadone Screen Not Detected Urine Fentanyl Screen Not Detected Ur Barbiturates Screen Not Detected Ur Phencyclidine Scrn Not Detected Ur Amphetamines Screen Not Detected U Benzodiazepines Scrn Not Detected Urine Cocaine Screen Not Detected U Marijuana (THC) Screen Not Detected 02/23/25 02/24/25 02/24/25 21:00 06:13 07:57 Sodium 144 Potassium 3.8 Chloride 109 H Carbon Dioxide 29 Anion Gap 10 L BUN 17 H Creatinine 1.08 Estim Creat Clear Calc 100.6 Estimated GFR > 60 POC Glucose 140 H 73 Random Glucose 83 Calcium 8.7 TSH Urine Opiates Screen Ur Buprenorphine Scrn Ur Oxycodone Screen Urine Methadone Screen Urine Fentanyl Screen Ur Barbiturates Screen Ur Phencyclidine Scrn Ur Amphetamines Screen U Benzodiazepines Scrn Urine Cocaine Screen U Marijuana (THC) Screen ECG Interpretation: EKG shows atrial fibrillation with rapid ventricular response at 160/Min; leftward axis; PVC versus aberrant conduction; nonspecific QRS widening. Imaging Radiologist's impression: Impressions Chest CTA 02/23/25 10:28 IMPRESSION: No acute coronary artery emboli. No aneurysm, thoracic aorta. Cardiomegaly and likely mild interstitial lung edema in the correct clinical settings. Coronary artery disease and atherosclerosis disease. Fleischner guidelines were followed. Electronically signed by: Carl Patel MD 02/23/2025 10:51 AM EDT Assessment and Plan (1) Atrial fibrillation with rapid ventricular response: Status: Acute We discussed about CARIE/cardioversion patient is interested and he would like to proceed with that without delay. We will try to schedule today. Postprocedure, likely use amiodarone/Eliquis and consider ablation. (2) Acute congestive heart failure: Status: Acute Hopefully should improve after cardioversion. IV diuretics. We will need guideline based medical therapy including beta blockers, Entresto, Jardiance spironolactone in due course. Procedures Date of Service Date of Service: 02/24/25
--- NOTE | 2025-02-24 10:30 | CA_ITS ---
Transesophageal Echocardiogram Patient (Last, First, Middle): Buck Warren M Gender: Male Date of : 1960 Age: 64 Procedure Date: 02/24/2025 Procedure Type: Transesophageal Echocardiogram Location: [facility] Height: 187.96 cm Weight: 141.98 kg BSA: 2.63 m2 Heart Rate: bpm BP: 129 / 105 mmHg Order Runner: SREEDHAR Referring MD: Kristopher Martin MD Symptoms: Atrial fibrillation Conclusion: ??? There is no evidence of a thrombus in the left atrial appendage. Findings Procedure Information Pre CARIE oral cavity was checked and revealed no overcrowding. The adult 3D probe was passed with no difficulty. Left Ventricle The left ventricular systolic function is severely decreased. The visually estimated ejection fraction is between 10-15%. Right Ventricle There is moderately decreased right ventricular systolic function. Atria There is no evidence of a thrombus in the left atrial appendage. Patent foramen ovale detected using by color Doppler. There is evidence of a patent foramen ovale with left to right shunting. Reduced velocities at mouth of appendage. Suspect artifact in one of the images, not thrombus. Aortic Valve There is a normal trileaflet aortic valve. There is no aortic valve stenosis. There is trace (trivial) aortic valve regurgitation. Mitral Valve The mitral valve appears normal. There is trace mitral valve regurgitation. There is no mitral valve stenosis. Tricuspid Valve There is mild tricuspid valve regurgitation. Great Vessels Small plaque is seen in the arch and descending thoracic aorta. Pericardium/Pleural Prominent epicardial adipose tissue noted. Prior Study Comparison No significant change compared to prior study dated: 02/23/2025. Updated by Kristopher Martin on 02:30 PM with Status of Final Kristopher Martin MD electronically signed on 02/25/2025 2:30:54 PM with status of Final
--- NOTE | 2025-02-24 10:30 | P.CONAN_ITS ---
HPI - Anesthesia Eval Consult details Narrative: A-fib for CARIE/CV PMFSH Active Problems Active Problems: All Active Problems Acute congestive heart failure (Acute) Congestive heart failure (Acute) Atrial fibrillation with rapid ventricular response (Acute) Microalbuminuric diabetic nephropathy (Acute) Anemia (Acute) Excessive daytime sleepiness (Acute) Loud snoring (Acute) Rhinitis (Acute) Depression with anxiety (Acute) Hypersomnolence (Acute) Left ankle swelling (Acute) Hypercholesterolemia (Acute) Screening for colon cancer (Acute) Screening for prostate cancer (Acute) Adult general medical exam (Acute) Left ankle pain (Acute) Right knee pain (Acute) Left knee pain (Acute) Sleep apnea (Acute) Anxiety (Acute) Obesity (BMI 30-39.9) (Acute) Bilateral knee pain (Acute) Alcohol drinker (Acute) Diabetes type 2, uncontrolled (Acute) Past Medical History Medical History Essential hypertension Diabetes type 2, controlled Left ankle pain Family History Family History Father Myocardial infarction HTN (hypertension) CVD (cardiovascular disease) Mother CVD (cardiovascular disease) Brother HTN (hypertension) Diabetes mellitus Son Substance abuse in family Family history of problems with anesthesia: No Surgical History Surgical History History of surgery History of anterior cruciate ligament surgery History of appendectomy History of Problems with Anesthesia: No Social History Social History (Updated 02/24/25 @ 09:51 by Kristopher Martin MD) Household Members: Spouse Housing: Apartment Do you presently have visiting nurse or other home services: No Alcohol intake: current Patient Tobacco Use Status: Never used Tobacco e-Cigarette/Vaping Use: Never Used Second Hand Smoke Exposure: No service: No Current occupational status: retired Cognitive needs: No Hearing needs: No Vision needs: Yes Meds Allergies Allergy/AdvReac Type Severity Reaction Status Date / Time No Known Drug Allergies Allergy Unknown UNKNOWN Verified 02/23/25 08:04 Active Medications: Current Medications Acetaminophen (Acetaminophen 325 Mg Tablet) 650 mg PO Q6H PRN PRN Reason: Pain, Mild 1-3,fever,headache Apixaban (Apixaban 5 Mg Tablet) 5 mg PO BID [facility] Last Admin: 02/24/25 09:12 Dose: 5 mg Calcium Carbonate (Calcium Carbonate 750 Mg Tab.Chew) 750 mg PO Q4H PRN PRN Reason: Heartburn Dextrose (Dextrose 50 % 25 Gm/50 Ml Syringe) 25 gm IVPUSH Q15M PRN; Protocol PRN Reason: per Hypoglycemia Standing Ord. Glucose (Glucose Gel 15 Gm Gel..Gram.) 15 gm PO Q15M PRN; Protocol PRN Reason: per Hypoglycemia Standing Ord. Insulin Glargine (Insulin Glargine,Hum.Rec.Anlog 100 Unit/Ml 10 Ml Vial) 50 unit SUBCUT BEDTIME [facility] Last Admin: 02/23/25 20:44 Dose: 50 unit Insulin Human Lispro (Insulin Lispro 100 Unit/Ml 3 Ml Vial) 0 unit SUBCUT QIDACHS [facility]; Protocol Last Admin: 02/24/25 07:29 Dose: Not Given Magnesium Hydroxide (Milk Of Magnesia 30 Ml Oral.Susp) 30 ml PO DAILY PRN PRN Reason: Constipation Melatonin (Melatonin 3 Mg Tablet) 6 mg PO BEDTIME PRN PRN Reason: Insomnia Metoprolol Tartrate (Metoprolol Tartrate 25 Mg Tablet) 25 mg PO Q6H [facility]; Protocol Last Admin: 02/24/25 07:58 Dose: 25 mg Multivitamins/Vitamin C (Multivitamin Tablet) 1 tab PO DAILY [facility] Last Admin: 02/24/25 09:12 Dose: 1 tab Omeprazole (Omeprazole 20 Mg Capsule.Dr) 20 mg PO DAILY@0630 [facility] Last Admin: 02/24/25 05:42 Dose: 20 mg Sodium Chloride (0.9 % Sodium Chloride Flush 3 Ml Syringe) 3 [facility] Last Admin: 02/24/25 08:00 Dose: 3 ml Home Medications ?Medication ?Instructions ?Recorded ?Confirmed ?Last Taken ?Type amlodipine 10 mg tablet 10 mg PO DAILY 02/23/2508/1502/22/25 History insulin glargine 100 unit/mL (3 75 unit subcut BEDTIME 02/23/25 02/23/25 02/21/25 History mL) subcutaneous pen (Basaglar KwikPen U-100 Insulin) qdhnhrgr-kql-kisot acid 200 1 tab PO DAILY 02/23/2502/22/25 History mcg-vit K1 60 mcg-lycopene 600 mcg tablet (Men's Multivitamin) omeprazole 20 mg capsule,delayed 20 mg PO DAILY@0630 1 02/23/25 02/22/25 History release Exam Height,Weight and Vital Signs: Height 6 ft 2 in Weight 142.1 kg Last Vital Signs Temp 97.2 F 02/24/25 08:44 Pulse 99 02/24/25 08:44 Resp 18 02/24/25 08:44 BP 129/105 H 02/24/25 08:44 Pulse Ox 95 02/24/25 08:44 O2 Del Method Room Air 02/24/25 08:44 O2 Flow Rate 2 02/24/25 05:38 Pertinent Lab Results Pertinent Lab Results: Laboratory Tests 02/23/25 02/23/25 02/23/25 08:23 15:23 18:30 WBC 7.0 RBC 4.89 Hgb 14.6 Hct 42.8 MCV 87.5 MCH 29.9 MCHC 34.1 RDW 13.2 Plt Count 172 MPV 9.8 Immature Gran % (Auto) 0.4 Neut % (Auto) 79.1 H Lymph % (Auto) 11.0 L [place] % (Auto) 8.0 Eos % (Auto) 1.4 Baso % (Auto) 0.1 Lymph # (Auto) 0.8 L [place] # (Auto) 0.6 Eos # (Auto) 0.1 Baso # (Auto) 0.0 Abs Immat Gran (auto) 0.03 Absolute Neuts (auto) 5.6 Absolute Nucleated RBC 0.000 Nucleated RBC % (auto) 0.0 PT 13.1 H INR 1.1 Sodium 143 Potassium 3.9 Chloride 108 Carbon Dioxide 28 Anion Gap 11 L BUN 11 Creatinine 0.89 Estim Creat Clear Calc 122.1 Estimated GFR > 60 POC Glucose 125 H Random Glucose 141 H Calcium 9.0 Magnesium 1.9 Total Bilirubin 1.3 H Direct Bilirubin 0.5 AST 19 ALT 21 Alkaline Phosphatase 67 Troponin I High Sens 28.2 NT-Pro-B Natriuret Pep 6314.3 H Total Protein 6.2 L Albumin 4.0 TSH 2.39 Urine Opiates Screen Not Detected Ur Buprenorphine Scrn Not Detected Ur Oxycodone Screen Not Detected Urine Methadone Screen Not Detected Urine Fentanyl Screen Not Detected Ur Barbiturates Screen Not Detected Ur Phencyclidine Scrn Not Detected Ur Amphetamines Screen Not Detected U Benzodiazepines Scrn Not Detected Urine Cocaine Screen Not Detected U Marijuana (THC) Screen Not Detected Ethyl Alcohol 13 02/23/25 02/24/25 02/24/25 21:00 06:13 07:57 WBC RBC Hgb Hct MCV MCH MCHC RDW Plt Count MPV Immature Gran % (Auto) Neut % (Auto) Lymph % (Auto) [place] % (Auto) Eos % (Auto) Baso % (Auto) Lymph # (Auto) [place] # (Auto) Eos # (Auto) Baso # (Auto) Abs Immat Gran (auto) Absolute Neuts (auto) Absolute Nucleated RBC Nucleated RBC % (auto) PT INR Sodium 144 Potassium 3.8 Chloride 109 H Carbon Dioxide 29 Anion Gap 10 L BUN 17 H Creatinine 1.08 Estim Creat Clear Calc 100.6 Estimated GFR > 60 POC Glucose 140 H 73 Random Glucose 83 Calcium 8.7 Magnesium Total Bilirubin Direct Bilirubin AST ALT Alkaline Phosphatase Troponin I High Sens NT-Pro-B Natriuret Pep Total Protein Albumin TSH Urine Opiates Screen Ur Buprenorphine Scrn Ur Oxycodone Screen Urine Methadone Screen Urine Fentanyl Screen Ur Barbiturates Screen Ur Phencyclidine Scrn Ur Amphetamines Screen U Benzodiazepines Scrn Urine Cocaine Screen U Marijuana (THC) Screen Ethyl Alcohol Airway Mallampati Class: II TM Dist: >3cm Neck ROM: Full Loose/Missing/Broken Teeth: No Heart: IRRR Lungs: CTAB Assessment and Plan Assessment Anesthesia Assessment: Anesthesia Plan Discussed and Chart Reviewed Final Anesthetic Review Family History of Problems with Anesthesia: No History of Problems with Anesthesia: No NPO: Yes ASA Class: III and Emergency Final Preanesthetic Review: No Changes in Pt Med Stat, Meds/Allgs Chart Reviewed, Consent Obtained/Reviewed and Anes Risks/Benef Reviewed Patient Risk: High Procedure Risk: Low Anesthetic Plan Anesthetic Plan: TIVA Disposition: Standard PACU
--- NOTE | 2025-02-24 11:25 | ECG_ITS ---
Test Reason : post cardioversion Blood Pressure : */* mmHG Vent. Rate : 56 BPM Atrial Rate : 56 BPM P-R Int : 208 ms QRS Dur : 88 ms QT Int : 448 ms P-R-T Axes : 5 -63 116 degrees QTcB Int : 432 ms Poor data quality, interpretation may be adversely affected Sinus bradycardia Left axis deviation Low voltage QRS Cannot rule out Anterior infarct , age undetermined Abnormal ECG When compared with ECG of 23-Feb-2025 07:38, Sinus rhythm has replaced Atrial fibrillation Vent. rate has decreased by 104 bpm Nonspecific T wave abnormality, worse in Anterolateral leads Referred By: Florian Armstrong Electronically Signed By: FLORIAN ARMSTRONG
[2025-02-24 12:17] LABS: Glucose, Whole Blood 60 mg/dL (60-115)
[2025-02-24 13:04] LABS: Glucose, Whole Blood 105 mg/dL (60-115)
--- NOTE | 2025-02-24 13:55 | MHC.CM.PN ---
IMM 02/24/25, Pt. lives with his , he does not use home health services or DME. PCP confirmed: Antonio Wang, he has HCP which names his , Sebas. He has a cane. Family to transport him home at [place], DCP: home, self care, CM to follow for DC needs.
[2025-02-24 16:08] LABS: Glucose, Whole Blood 148 mg/dL (60-115)
[2025-02-24 20:10] LABS: Glucose, Whole Blood 138 mg/dL (60-115)
[2025-02-24] MEDS: Sacubitril/Valsartan 24/26 1 TAB TABLET PO (20:28)
[2025-02-24] MEDS: Insulin Glargine,Hum.rec.anlog 100 UNIT/ML 10 ML VIAL 50 UNIT SUBCUT (20:30)
[2025-02-25 03:37] VITALS: BP 120/72; PULSE 60; RESP 16; TEMP 36.7; O2SAT 96
[2025-02-25 07:18] LABS: Glucose, Whole Blood 138 mg/dL (60-115)
--- NOTE | 2025-02-25 07:30 | P.PNIM_ITS ---
Subjective Subjective Date of Service: 02/25/25 Physical Exam 2 Vital Signs: Vital Signs: Last Vital Signs Temp 98.0 F 02/25/25 03:37 Pulse 60 02/25/25 03:37 Resp 16 02/25/25 03:37 BP 120/72 02/25/25 03:37 Pulse Ox 96 02/25/25 03:37 O2 Del Method Room Air 02/25/25 03:37 O2 Flow Rate 2 02/24/25 12:20 BMI result Body Mass Index 40.2 Objective Data Active Medications Acetaminophen (Acetaminophen 325 Mg Tablet) 650 mg PO Q6H PRN PRN Reason: Pain, Mild 1-3,fever,headache Amiodarone HCl (Amiodarone Hcl 200 Mg Tablet) 400 mg PO BID [facility] Last Admin: 02/24/25 20:29 Dose: 400 mg Documented By: ZAFAR Apixaban (Apixaban 5 Mg Tablet) 5 mg PO BID [facility] Last Admin: 02/24/25 20:29 Dose: 5 mg Documented By: ZAFAR Calcium Carbonate (Calcium Carbonate 750 Mg Tab.Chew) 750 mg PO Q4H PRN PRN Reason: Heartburn Dextrose (Dextrose 50 % 25 Gm/50 Ml Syringe) 25 gm IVPUSH Q15M PRN; Protocol PRN Reason: per Hypoglycemia Standing Ord. Empagliflozin (Empagliflozin 10 Mg Tablet) 10 mg PO DAILY [facility] Furosemide (Furosemide 40 Mg Tablet) 40 mg PO BID@0800,1500 [facility]; Protocol Last Admin: 02/24/25 16:46 Dose: 40 mg Documented By: ARSENIO Glucose (Glucose Gel 15 Gm Gel..Gram.) 15 gm PO Q15M PRN; Protocol PRN Reason: per Hypoglycemia Standing Ord. Insulin Glargine (Insulin Glargine,Hum.Rec.Anlog 100 Unit/Ml 10 Ml Vial) 50 unit SUBCUT BEDTIME [facility] Last Admin: 02/24/25 20:30 Dose: 50 unit Documented By: ZAFAR Insulin Human Lispro (Insulin Lispro 100 Unit/Ml 3 Ml Vial) 0 unit SUBCUT QIDACHS [facility]; Protocol Last Admin: 02/24/25 20:31 Dose: Not Given Documented By: ZAFAR Non-Admin Reason: No Insulin Coverage Magnesium Hydroxide (Milk Of Magnesia 30 Ml Oral.Susp) 30 ml PO DAILY PRN PRN Reason: Constipation Melatonin (Melatonin 3 Mg Tablet) 6 mg PO BEDTIME PRN PRN Reason: Insomnia Metoprolol Tartrate (Metoprolol Tartrate 25 Mg Tablet) 25 mg PO Q6H [facility]; Protocol Last Admin: 02/25/25 00:15 Dose: 25 mg Documented By: SHIVAM Multivitamins/Vitamin C (Multivitamin Tablet) 1 tab PO DAILY [facility] Last Admin: 02/24/25 09:12 Dose: 1 tab Documented By: ARSENIO Naloxone HCl (Naloxone Hcl 0.4 Mg/Ml Vial) 0.04 mg IVPUSH Q5M PRN PRN Reason: Excessive sedation or RR < 8 Omeprazole (Omeprazole 20 Mg Capsule.Dr) 20 mg PO DAILY@0630 [facility] Last Admin: 02/25/25 05:34 Dose: 20 mg Documented By: SHIVAM Sacubitril/Valsartan (Sacubitril/Valsartan 1 Tab Tablet) 1 tab PO BID [facility]; Protocol Last Admin: 02/24/25 20:28 Dose: 1 tab Documented By: ZAFAR Sodium Chloride (0.9 % Sodium Chloride Flush 3 Ml Syringe) 3 ml IVFLUSH QSHIFT [facility] Last Admin: 02/24/25 20:29 Dose: 3 ml Documented By: ZAFAR Spironolactone (Spironolactone 25 Mg Tablet) 12.5 mg PO DAILY [facility]; Protocol Labs 02/23/25 08:23 02/24/25 06:13 Labs: Laboratory Results - last 24 hr 02/24/25 02/24/25 02/24/25 07:57 12:13 13:01 POC Glucose 73 60 105 02/24/25 02/24/25 02/25/25 16:03 20:03 07:07 POC Glucose 148 H 138 H 138 H Quality Stroke Does the patient have a stroke diagnosis?: No VTE Prior VTE?: No VTE Risk Level:: Medical - moderate - high VTE Device Contraindication: Treatment Not Indicated VTE Drug Contraindication: N/A - Med Ordered
[2025-02-25 07:38] VITALS: BP 150/77; PULSE 62; RESP 18; TEMP 36; O2SAT 93
[2025-02-25 08:35] VITALS: BP 150/77
[2025-02-25 08:36] VITALS: BP 150/77; PULSE 62
[2025-02-25] MEDS: 0.9 % Sodium Chloride Flush 3 ML SYRINGE IVFLUSH (08:36)
[2025-02-25] MEDS: Sacubitril/Valsartan 24/26 1 TAB TABLET PO (08:36)
--- NOTE | 2025-02-25 11:00 | PM.PNCARD ---
Subjective Subjective Date of Service: 02/25/25 Interval history: Underwent transesophageal echocardiogram and cardioversion yesterday. He states he is feeling much better. Remains in sinus rhythm. Review of Systems Review of Systems Yes all other systems are reviewed and are negative Constitutional: Reports as per HPI and Reports no additional constitutional complaints Eyes: Reports as per HPI and Denies no additional eye complaints Denies system reviewed and no additional complaints, except as documented and Reports as per HPI Cardiovascular: Reports as per HPI, Reports no additional cardiovascular complaints, Denies acrocyanosis, Denies cool extremities, Denies chest pain, Denies leg edema, Denies lightheadedness, Denies palpitations and Denies dyspnea Respiratory: Reports as per HPI, Denies no additional respiratory complaints and Denies dyspnea Gastrointestinal: Reports as per HPI and Denies no additional gastrointestinal complaints Genitourinary: Reports no additional male genitourinary complaints and Reports as per HPI Musculoskeletal: Reports no additional musculoskeletal complaints and Reports as per HPI Skin/Breast: Reports system reviewed and no additional complaints, except as docu Reports system reviewed and no additional complaints, except as documented and Reports as per HPI Psychiatric: Reports no additional psychiatric complaints and Reports as per HPI Endocrine: Reports no additional endocrine complaints, Reports as per HPI and Denies palpitations Hematologic/Lymphatic: Reports no additional hematologic/lymphatic complaints and Reports as per HPI Allergic/Immunologic: Reports no additional allergic/immunologic complaints and Reports as per HPI Physical Exam Vital Signs: Last Vital Signs Temp 96.8 F 02/25/25 07:38 Pulse 62 02/25/25 08:36 Resp 18 02/25/25 07:38 BP 150/77 H 02/25/25 08:36 Pulse Ox 93 02/25/25 07:38 O2 Del Method Room Air 02/25/25 07:38 O2 Flow Rate 2 02/24/25 12:20 BMI result Body Mass Index 40.2 Const General: comfortable and no acute distress Orientation/consciousness: patient oriented x3 HEENT Other: Unremarkable Head: Yes normal to inspection Neck Neck: Yes normal visual inspection Chest Chest palpation & inspection: normal inspection of the chest Resp Auscultation: clear to auscultation bilaterally Cardio Palpation: normal PMI Heart sounds: S1 normal heart sound present, S2 normal heart sound present, no gallops, no murmurs and no rubs GI Palpation (GI): Soft to palpation Back/Spine/Pelvis Other: unremarkable Skin General skin exam: no rashes or lesions noted Neuro General: patient oriented x3 Extrem Other: Trace edema General: Yes normal to inspection Psych Mental Status: mental status grossly normal Objective Labs and Meds 02/23/25 08:23 02/24/25 06:13 Lab results: Laboratory Results - last 24 hr 02/24/25 02/24/25 02/24/25 12:13 13:01 16:03 POC Glucose 60 105 148 H 02/24/25 02/25/25 20:03 07:07 POC Glucose 138 H 138 H Progress Note: A&P Assessment and plan (1) Atrial fibrillation with rapid ventricular response: Status: Acute Assessment and Plan: Transesophageal echocardiogram and cardioversion performed yesterday. He is back to normal sinus rhythm. Amiodarone loading with 400 mg b.i.d. for 2 weeks followed by 200 mg daily. Eliquis. Outpatient follow-up for discussion of ablation. (2) Acute congestive heart failure: Status: Acute Assessment and Plan: It is improving post cardioversion. Could be related to atrial fibrillation but more than likely, we will need to also evaluate for other causes like ischemic cardiomyopathy. Hence we will plan on a diagnostic catheterization after 4 weeks of anticoagulation. For medications, can do Toprol-XL that he already takes at home; change lisinopril to Entresto. Add Jardiance. Diuretics. Plan Follow-up will be arranged as an outpatient. Time Spent With Patient Time: Total time managing care of this patient today ____ minutes. Progress Note: Quality Stroke Does the patient have a stroke diagnosis?: No Procedures Date of Service Date of Service: 02/25/25
--- NOTE | 2025-02-25 11:12 | MHC.CM.PN ---
Pt. to DC today, he will go home via family transport, plan is self care.
[2025-02-25 11:14] LABS: Glucose, Whole Blood 219 mg/dL (60-115)
--- NOTE | 2025-02-25 11:21 | HO.POSTANES ---
Post Anesthesia Evaluation Post Anesthesia Evaluation Date of Service: 02/25/25 Vital Signs: Vital Signs Temp Pulse Resp BP Pulse Ox O2 Del Method 02/25/25 08:36 150/77 H 02/25/25 08:36 150/77 H 02/25/25 08:36 62 150/77 H 02/25/25 08:35 150/77 H 02/25/25 07:38 96.8 F 62 18 150/77 H 93 Room Air 02/25/25 03:37 98.0 F 60 16 120/72 96 Room Air 02/24/25 23:57 98.0 F 64 16 140/87 H 95 Room Air Anesthesia: TIVA Mental Status: Awake Pain Control: Satisfactory Nausea/Vomiting: None Hydration: Adequate Anesthesia-Related Issues: No Anes. Related Issues
[2025-02-25 11:30] VITALS: BP 150/77; PULSE 62
[2025-02-25 11:41] VITALS: BP 157/76; PULSE 59; RESP 20; TEMP 36.4; O2SAT 95
--- NOTE | 2025-02-25 12:29 | PM.DS ---
DS: Providers Provider Date of admission: 02/23/25 12:09 Primary care physician: Antonio Wang MD Consults: 02/23/25 12:58 Consult to Cardiology Routine Consulting Provider: [facility] [place] [facility] Reason for consultation: new afib, CHF DS: Diagnosis Discharge Diagnosis (1) Atrial fibrillation with rapid ventricular response: Status: Acute (2) Acute congestive heart failure: Status: Acute Physical Exam Vital Signs: Vital Signs: Last Vital Signs Temp 97.6 F 02/25/25 11:41 Pulse 59 02/25/25 11:41 Resp 20 02/25/25 11:41 BP 157/76 H 02/25/25 11:41 Pulse Ox 95 02/25/25 11:41 O2 Del Method Room Air 02/25/25 11:41 O2 Flow Rate 2 02/24/25 12:20 BMI result Body Mass Index 40.2 DS: Data Data Completed and Pending Labs on day of discharge: Laboratory Results - last 24 hr 02/24/25 02/24/25 02/24/25 13:01 16:03 20:03 POC Glucose 105 148 H 138 H 02/25/25 02/25/25 07:07 11:05 POC Glucose 138 H 219 H Discharge Plan Discharge Anticipated Discharge Date/Time: 02/25/25 10:58 Patient Disposition: Home, Self-Care Discharge Diagnosis: AEHFrEF 2/2 Alc CDM Referrals: Antonio Wang MD [Primary Care Provider, Internal Medicine] - 1 Week Kristopher Martin MD [Physician, Cardiology] - 1 Week Discharge Medications: New furosemide 40 mg Tablet 40 mg PO BID@0800,1500 30 Days Qty: 60 3RF Protocol: Hold for SBP< HOLD for SBP < : 90 amiodarone 200 mg Tablet 400 mg PO BID 14 Days Qty: 56 0RF spironolactone 25 mg Tablet 12.5 mg PO DAILY 30 Days Qty: 15 3RF Protocol: Hold for SBP< HOLD for SBP < : 90 Eliquis 5 mg Tablet 5 mg PO BID 30 Days Qty: 60 3RF Jardiance 10 mg Tablet 10 mg PO DAILY 30 Days Qty: 30 0RF amiodarone 200 mg tablet 200 mg PO DAILY Qty: 30 3RF Rx Instructions: please start from 03/11/25 after BID dosing of Amiodarone sacubitril-valsartan [Entresto] 49-51 mg tablet 1 tab PO BID 30 Days Qty: 60 0RF Continued glipizide 10 mg tablet extended release 24hr 10 mg PO DAILY 90 Days Qty: 90 1RF (DME) pen needle, diabetic 29 gauge x 1/2 needle See Rx Instructions .ROUTE DAILY Qty: 100 0RF Rx Instructions: DX: E11.9 As directed one time per day 90 day supply amlodipine 10 mg tablet 10 mg PO DAILY omeprazole 20 mg capsule,delayed release(DR/EC) 20 mg PO DAILY@0630 insulin glargine [Basaglar KwikPen U-100 Insulin] 100 unit/mL (3 mL) insulin pen 75 unit subcut BEDTIME Rx Instructions: 75 units subcut. every evening Men's Multivitamin 200-60-600 mcg Tablet 1 tab PO DAILY metoprolol succinate 25 mg tablet extended release 24 hr 75 mg PO DAILY 90 Days Qty: 270 4RF Discontinued lisinopril 20 mg tablet 40 mg PO DAILY 90 Days Qty: 180 4RF Rx Instructions: Take 2 tablets by mouth daily Discharge Orders: Discharge Order (Routine); Ordered 02/25/25 Ordered By: Alejandra Farley Stand Alone Forms: Patient Portal Discharge page Print Language: Upper Sorbian
--- NOTE | 2025-02-25 12:29 | PM.DS ---
DS: Providers Provider Date of Service: 02/25/25 Date of admission: 02/23/25 12:09 Date of discharge: 02/25/25 Primary care physician: Antonio Wang MD Consults: 02/23/25 12:58 Consult to Cardiology Routine Consulting Provider: [facility] [place] [facility] Reason for consultation: new afib, CHF DS: Diagnosis Discharge Diagnosis (1) Atrial fibrillation with rapid ventricular response: Status: Acute DS: Summary Hospital Course Hospital Course: Atrial fibrillation with rapid ventricular response, status post successful cardioversion on 02/24/2025 Patient is a 64-year-old male with prior history of HTN, HLD, dm, 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 Patient underwent successful cardioversion on 02/24/2025. He was noted to be in sinus rhythm post cardioversion. He was initiated on GDM T-Entresto, New onset AFib with RVR-unclear chronicity but could have been for awhile s/p cardioversion on 02/24/2025 with reversal to sinus Severe decompensated HFrEF 16%- possibly multifactorial? Alcohol-induced cardiomyopathy versus prior deconditioning Initiated amiodarone, Eliquis, low-dose beta-dima call Entresto Jardiance, spironolactone this admission-please see be dosage below Initiated Lasix 40 IV b.i.d. for diuresis Patient symptom-free , electrolytes checked and repleted to goal and is monitored on telemetry during this hospitalization. UEI-nmu-wkmk beta-dima call Entresto Jardiance, spironolactone this admission-please see be dosage below. We have stopped his lisinopril and instead he is on Entresto. DM -Insulin being adjusted and uptitrate to maintain euglycemia HLD -Continue statins Morbid obesity-advised dietary intake DELVIS- we will need outpatient sleep study Depression anxiety-continue home meds History of a UD-patient has been advised to follow-up with addiction Services, services offered-patient deferred during this time. Initially he did not endorse it, however later on he did. He is made aware that it is likely his alcohol that has had multiple medical and cardiac conditions. Patient appears to have poor insight. This note is constructed using voice recognition software. While every effort has been made to ensure accuracy, longitudinal float operator errors may have been included. Time spent discussing smoking cessation with patient: more than 10 minutes Status at Discharge Functional status at discharge: independent ambulation Time Attestation Discharge Coordination Time (in mins): 35 Quality: Safe Use of Opioids Does Pt have an Active Cancer Diagnosis on the Problem List?: No Quality: Stroke Does the patient have a stroke diagnosis?: No Physical Exam Exam: Exam: General: AOx3, morbid obesity Resp: CTA bilaterally CVS: S1, S2, RRR GI: +BS, NT, no distention Skin: Warm, dry Neuro: Cranial nerves II-XII grossly intact bilaterally. Motor grossly intact bilaterally Extremities: Mild 1+ pitting pedal edema Psych: Tangential talk Vital Signs: Vital Signs: Last Vital Signs Temp 97.6 F 02/25/25 11:41 Pulse 59 02/25/25 11:41 Resp 20 02/25/25 11:41 BP 157/76 H 02/25/25 11:41 Pulse Ox 95 02/25/25 11:41 O2 Del Method Room Air 02/25/25 11:41 O2 Flow Rate 2 02/24/25 12:20 BMI result Body Mass Index 40.2 DS: Data Data Completed and Pending Labs on day of discharge: Laboratory Results - last 24 hr 02/24/25 02/24/25 02/24/25 13:01 16:03 20:03 POC Glucose 105 148 H 138 H 02/25/25 02/25/25 07:07 11:05 POC Glucose 138 H 219 H Discharge Plan Discharge Anticipated Discharge Date/Time: 02/25/25 10:58 Patient Disposition: Home, Self-Care Discharge Diagnosis: AEHFrEF 2/2 Alc CDM Referrals: Antonio Wang MD [Primary Care Provider, Internal Medicine] - 1 Week Kristopher Martin MD [Physician, Cardiology] - 1 Week Discharge Medications: New furosemide 40 mg Tablet 40 mg PO BID@0800,1500 30 Days Qty: 60 3RF Protocol: Hold for SBP< HOLD for SBP < : 90 amiodarone 200 mg Tablet 400 mg PO BID 14 Days Qty: 56 0RF spironolactone 25 mg Tablet 12.5 mg PO DAILY 30 Days Qty: 15 3RF Protocol: Hold for SBP< HOLD for SBP < : 90 Eliquis 5 mg Tablet 5 mg PO BID 30 Days Qty: 60 3RF Jardiance 10 mg Tablet 10 mg PO DAILY 30 Days Qty: 30 0RF amiodarone 200 mg tablet 200 mg PO DAILY Qty: 30 3RF Rx Instructions: please start from 03/11/25 after BID dosing of Amiodarone sacubitril-valsartan [Entresto] 49-51 mg tablet 1 tab PO BID 30 Days Qty: 60 0RF Continued glipizide 10 mg tablet extended release 24hr 10 mg PO DAILY 90 Days Qty: 90 1RF (DME) pen needle, diabetic 29 gauge x 1/2 needle See Rx Instructions .ROUTE DAILY Qty: 100 0RF Rx Instructions: DX: E11.9 As directed one time per day 90 day supply amlodipine 10 mg tablet 10 mg PO DAILY omeprazole 20 mg capsule,delayed release(DR/EC) 20 mg PO DAILY@0630 insulin glargine [Basaglar KwikPen U-100 Insulin] 100 unit/mL (3 mL) insulin pen 75 unit subcut BEDTIME Rx Instructions: 75 units subcut. every evening Men's Multivitamin 200-60-600 mcg Tablet 1 tab PO DAILY metoprolol succinate 25 mg tablet extended release 24 hr 75 mg PO DAILY 90 Days Qty: 270 4RF Discontinued lisinopril 20 mg tablet 40 mg PO DAILY 90 Days Qty: 180 4RF Rx Instructions: Take 2 tablets by mouth daily Discharge Orders: Discharge Order (Routine); Ordered 02/25/25 Ordered By: Alejandra Farley Diet: Low salt diet Activity on Discharge: As tolerated Stand Alone Forms: Patient Portal Discharge page Print Language: Albanian Care Plan Goals: Advised the patient to curb his alcoholic intake Outpatient Cardiology follow-up -maintenance of GDM T Medication compliance reinforced Patient to get outpatient Cardiology follow-up Health Concerns: Dietary changes, low-salt diet Plan of Treatment: See above-medications adjustment made in comanagement with Cardiology, we appreciate Assessment: See above
== END 2025-02-25 13:00 | disposition home or self-care (01) | DRG 308 ==
LOC: HO.ED 11:54 → HO.EDOVER 12:15 → HO.IMC 02-24 07:40
PROVIDERS: Internal Medicine; Admitting Provider Physician Assistant Medical; Emergency Provider Emergency Medicine; PCP Family Medicine; Visit Provider Student in an Organized Health Care Education/Training Program
PROC: 5A2204Z Restoration of Cardiac Rhythm, Single (ICD-10-PCS; CPT 93312; principal; 2025-02-24 10:30)
PROC: 5A2204Z Restoration of Cardiac Rhythm, Single (ICD-10-PCS; 2025-02-24 10:30)
DX: I48.91 Unspecified atrial fibrillation (principal); I50.23 Acute on chronic systolic (congestive) heart failure; Z68.41 Body mass index [BMI] 40.0-44.9, adult; E78.5 Hyperlipidemia, unspecified; I11.0 Hypertensive heart disease with heart failure; E66.01 Morbid (severe) obesity due to excess calories; Z71.3 Dietary counseling and surveillance; G47.33 Obstructive sleep apnea (adult) (pediatric); F41.9 Anxiety disorder, unspecified; F32.A Depression, unspecified; I42.6 Alcoholic cardiomyopathy; Z79.4 Long term (current) use of insulin; Z79.01 Long term (current) use of anticoagulants; Z79.899 Other long term (current) drug therapy
CPT/HCPCS: 36415; 71045; 71275; 80048; 80076; 80307; 82947; 83735; 83880; 84443; 84484; 85025; 85610; 92960; 93005; 93306; 99285; J0616; J1938; J2003; J2704; J3010; Q9957; Q9967

== ENCOUNTER → 2025-02-23 07:57 | Outpatient (BNV) | payer MEDICARE, SELFPAY | PROVIDERS: Emergency Provider Emergency Medicine; PCP Family Medicine; Visit Provider Radiology Diagnostic Radiology | DX: I51.7 Cardiomegaly (principal); I25.10 Atherosclerotic heart disease of native coronary artery without angina pectoris | CPT/HCPCS: 71045; 71275 ==

== ENCOUNTER 2025-02-23 12:09 | Outpatient (BNV) | payer MEDICARE, SELFPAY | END 2025-02-23 15:00 | PROVIDERS: Admitting Provider Physician Assistant Medical; Emergency Provider Emergency Medicine; PCP Family Medicine; Visit Provider Internal Medicine | DX: I50.20 Unspecified systolic (congestive) heart failure (principal); I48.91 Unspecified atrial fibrillation | CPT/HCPCS: 93306 ==

== ENCOUNTER 2025-02-23 12:09 | Outpatient (BNV) | payer MEDICARE, SELFPAY | END 2025-02-24 11:25 | PROVIDERS: Admitting Provider Physician Assistant Medical; Emergency Provider Emergency Medicine; PCP Family Medicine; Visit Provider Internal Medicine | DX: Q21.12 Patent foramen ovale (principal); I48.91 Unspecified atrial fibrillation; R00.1 Bradycardia, unspecified | CPT/HCPCS: 93010; 93312; 93320; 93325 ==

== ENCOUNTER → 2025-02-23 12:09 | Outpatient (BNV) | payer MEDICARE, SELFPAY | PROVIDERS: Admitting Provider Physician Assistant Medical; Emergency Provider Emergency Medicine; PCP Family Medicine; Visit Provider Internal Medicine | DX: I48.91 Unspecified atrial fibrillation (principal); I50.9 Heart failure, unspecified | CPT/HCPCS: 92960; 99233 ==

== ENCOUNTER → 2025-02-23 12:09 | Outpatient (BNV) | payer MEDICARE, SELFPAY | PROVIDERS: Admitting Provider Physician Assistant Medical; Emergency Provider Emergency Medicine; PCP Family Medicine; Visit Provider Student in an Organized Health Care Education/Training Program | DX: I48.91 Unspecified atrial fibrillation (principal); I50.9 Heart failure, unspecified | CPT/HCPCS: 99223; 99239 ==

== ENCOUNTER 2025-02-28 09:06 | Outpatient (AMB) | payer MEDICARE, SELFPAY ==
--- NOTE | 2025-02-28 09:08 | A.OFFPC_ITS ---
Vital Signs 02/28/25 09:23 Height 6 ft 2 in Weight 302 lb BMI 38.8 BP 139/68 Blood Pressure Location Rt brachial Position Sitting Respiration 16 Pulse 60 Pulse Source Pulse Oximeter Temp 99.1 F Temp Source Oral Pulse Oximetry (%) 95 Oxygen Delivery Method Room Air Intake Visit Reasons: hdcfu heart attack Intake Note: patient here for HDFU/ afib, Heart Failure. c/o no appitite, tired Peach Grower Required: No Allergies No Known Drug Allergies Allergy (Unknown, Verified 02/28/25 09:18) UNKNOWN Medication List - Last Reconciled 02/28/25 by Antonio Wang MD amiodarone 400 mg (2 x 200 mg) PO BID 14 days amiodarone 200 mg PO DAILY amlodipine 10 mg PO DAILY apixaban (Eliquis) 5 mg PO BID 30 days empagliflozin (Jardiance) 10 mg PO DAILY 30 days furosemide 40 mg See Protocol PO BID@0800,1500 30 days glipizide ER 10 mg PO DAILY 90 days insulin glargine (Basaglar KwikPen U-100 Insulin) 75 units subcut BEDTIME metoprolol succinate ER 75 mg (3 x 25 mg) PO DAILY 90 days jpgvplci-fld-gpvdw-vit K-lycop 200-60-600 mcg (Men's Multivitamin) 1 tab PO DAILY omeprazole 20 mg PO DAILY@0630 pen needle, diabetic DX: E11.9 As directed one time per day 90 day supply sacubitril-valsartan 49-51 mg (Entresto) 1 tab PO BID 30 days spironolactone 12.5 mg See Protocol PO DAILY 30 days Tobacco use date assessed: 02/28/25 Fall risk assessment: No Falls in past year Last assessed Fall Risk: 02/28/25 Dental Screening Dental Screen Date: 02/28/25 Did you have a dental visit in the last 12 months?: No Did you have a dental problem in the last 6 months where you did not have access to dental care?: No Was dental information given to patient?: Patient has dentist HPI hdcfu heart attack HPI Details 64 y/o male [facility] to [facility] 02/23/25 for acute SOB, was found to have new onset HFrEF and Afib with RVR secondary to significant heart failure and pulmonary edema. Pt had underwent successful cardioversion 02/24/25. He was noted to be in sinus rhythm post cardioversion. He was initiated on Entresto, Was initiated amiodarone, Eliquis, low dose beta-dima. He is on Entresto. [facility] Medical History (Updated 02/28/25 @ 09:58 by Tay Bhatti) Essential hypertension Diabetes type 2, controlled Left ankle pain Surgical History History of surgery History of anterior cruciate ligament surgery History of appendectomy Family History Father Myocardial infarction HTN (hypertension) CVD (cardiovascular disease) Mother CVD (cardiovascular disease) Brother HTN (hypertension) Diabetes mellitus Son Substance abuse in family Social History (Updated 02/24/25 @ 09:51 by Kristopher Martin MD) Household Members: Spouse Housing: Apartment Do you presently have visiting nurse or other home services: No Alcohol intake: current Patient Tobacco Use Status: Never used Tobacco e-Cigarette/Vaping Use: Never Used Second Hand Smoke Exposure: No service: No Current occupational status: retired Cognitive needs: No Hearing needs: No Vision needs: Yes Questionnaire Thrive Questionnaire Date Thrive assessed: 06/30/24 I am a: Patient What is your living situation today?: I choose not to answer this question Within the past 12 months, did the food you bought not last and you didn't have the money to get more?: I choose not to answer this question Within the past 12 months, did you worry whether your food would run out before you got money to buy more?: I choose not to answer this question Do you have trouble paying for medicines?: I choose not to answer this question Do you have trouble getting transportation to medical appointments?: I choose not to answer this question Do you have trouble paying your heating and electricity bill?: I choose not to answer this question Do you have trouble taking care of your child, family member or friend?: I choose not to answer this question Do you have trouble with day-to-day activities such as bathing, preparing meals, shopping, managing finances, etc.?: I choose not to answer this question Are you currently unemployed and looking for a job?: I choose not to answer this question Are you interested in more education?: I choose not to answer this question Please select the resources that you would like help with: None Currently or been in a relationship where the following occur: I choose not to answer THRIVE Score: 0 SANG-7 AMB Questionnaire SANG-7 Date SANG - 7 assessed: 01/23/25 Source: Developed by Drs. Alexis Morel, Selma Redman, Ray Villanueva and colleagues, with an educational burno from [employer]. Review of Systems Const Denies chills, Denies fatigue, Denies fever(s), Denies headache(s) and Denies weakness ENT Denies dizziness and Denies headache(s) Card Denies dyspnea Resp Denies cough, Denies dyspnea, Denies wheezing and Denies other (shortness of breath) Musc Denies numbness and Denies tingling Neuro Denies dizziness, Denies headache(s), Denies numbness, Denies tingling and Denies weakness Psych Denies anxiety and Denies depression Endo Denies fatigue Aller/Immun Denies wheezing Physical exam (Primary Care) Tobacco/Smoking Status: Tobacco use Status Tobacco use date assessed 02/28/25 02/28/25 09:23 Patient Tobacco Use Status Never used Tobacco 02/28/25 09:09 e-Cigarette/Vaping Use Never Used 02/28/25 09:09 Thrive Assessment: Date of Thrive Assessment Date Thrive assessed 06/30/24 02/28/25 09:09 Currently or been in a relationship where the following occur: I choose not to answer Const General: well developed; No acute distress Nutritional Appearance: well nourished Orientation/consciousness: patient oriented x3 HENMT Head: Yes normocephalic and Yes atraumatic Eyes General: appearance normal, both eyes and all related structures Pupils: Equal, round and reactive pupils present EOM: EOMs intact bilaterally Resp Effort & Inspection: normal respiratory effort Neuro General: patient oriented x3 and gait normal Cranial nerves: Yes Equal, round and reactive pupils present Psych Affect: normal affect Coding Level of Care Code TCM High MDM <= 7 Days Diagnoses Atrial fibrillation with rapid ventricular response I48.91 Congestive heart failure I50.9 Essential hypertension I10 HFrEF (heart failure with reduced ejection fraction) I50.20 Alcohol drinker Z72.89 Sleep apnea G47.30 Cardiomyopathy I42.9 Assessment & Plan Assessment & Plan (1) Atrial fibrillation with rapid ventricular response: Code(s): I48.91 - Unspecified atrial fibrillation Category: Medical (2) Congestive heart failure: Code(s): I50.9 - Heart failure, unspecified Category: Medical (3) Essential hypertension: Code(s): I10 - Essential (primary) hypertension Category: Medical (4) HFrEF (heart failure with reduced ejection fraction): Code(s): I50.20 - Unspecified systolic (congestive) heart failure Category: Medical (5) Alcohol drinker: Code(s): Z72.89 - Other problems related to lifestyle Category: Social Hx (6) Sleep apnea: Code(s): G47.30 - Sleep apnea, unspecified Category: Medical (7) Cardiomyopathy: Code(s): I42.9 - Cardiomyopathy, unspecified Category: Medical (8) Cardiomyopathy: Code(s): I42.9 - Cardiomyopathy, unspecified Plan Pt apresented to ED 02/23/25 w/ racing heartbeat and SOB. Initial w/u revealed afib w/ RVR and decompensation HFrEF of 16%. ED Initiated amiodarone, Eliquis, low-dose beta-dima call Entresto, Jardiance, spironolactone. Initiated Lasix 40 IV b.i.d. for diuresis Successfully cardioverted on 02/24/25. Subsequently, patient was symptom-free , electrolytes checked and repleted to goal and is monitored on telemetry during hospitalization. Lisinopril was discontinued as he is now on Entresto and low dose beta dima. Take medications as prescribed Activity as tolerated Current alcohol goal of abstinence Follow-up with Cardiology Discussed with patient that cardiomyopathy likely secondary to alcohol use is a significant underlying cause for his atrial fibrillation. Likely combined with sleep apnea. Patient says he has stopped drinking alcohol and I encouraged this. Also offered a referral to the [facility] which he declines at this time. Blood pressure 139/68. Recommending goal of less than 130/80 at his next visit. Medications were just recently changed. Watch salt and sodium and continue medications as prescribed Check labs Orders: Orders Complete Blood Count Auto Diff Today Z00.00 - Encounter for general adult medical examination without abnormal findings TSH reflex Free T4 Today Z00.00 - Encounter for general adult medical examination without abnormal findings NT Pro B Type Natriuretic Pept Today I50.9 - Heart failure, unspecified Comprehensive [place]. Panel Fast Today Z00.00 - Encounter for general adult medical examination without abnormal findings Referrals Cardiology Referral I42.9 - Cardiomyopathy, unspecified, I48.91 - Unspecified atrial fibrillation, I50.20 - Unspecified systolic (congestive) heart failure
[2025-02-28 09:23] VITALS: BP 139/68; PULSE 60; RESP 16; TEMP 37.3; O2SAT 95; BMI 38.8
== END 2025-02-28 10:00 | disposition home or self-care (01) ==
PROVIDERS: PCP Family Medicine; Visit Provider Family Medicine
DX: I11.0 Hypertensive heart disease with heart failure (principal); I48.91 Unspecified atrial fibrillation; I50.20 Unspecified systolic (congestive) heart failure; I50.9 Heart failure, unspecified; I42.9 Cardiomyopathy, unspecified; Z72.89 Other problems related to lifestyle; G47.30 Sleep apnea, unspecified

== ENCOUNTER → 2025-02-28 09:06 | Outpatient (BNVA) | payer MEDICARE, SELFPAY | PROVIDERS: PCP Family Medicine; Visit Provider Family Medicine | DX: I11.0 Hypertensive heart disease with heart failure (principal); I50.20 Unspecified systolic (congestive) heart failure; I48.91 Unspecified atrial fibrillation; G47.30 Sleep apnea, unspecified; I42.9 Cardiomyopathy, unspecified; Z72.89 Other problems related to lifestyle | CPT/HCPCS: 99496 ==

== ENCOUNTER 2025-03-08 08:04 | Outpatient (AMB) | payer MEDICARE, SELFPAY ==
--- OUTSIDE RECORDS SUMMARY | 2025-03-08 08:08 | XMS_ITS | Patient Health Record ---
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 Name Role Phone Ester TREJO, [place] Primary Care Provider Fuentes Arias Jr [phone] Reason For Referral No Information Medications Medication SIG (Take, Route, Fr equency, Duration) Notes Start Date End Date Status MoviPrep 100 GM as directed before c olonoscopy Orally; Duration: 1 dose 08/04/2012 05/24/2024 Active Lisinopril 20MG 05/24/2024 05/24/2024 Ac tive Problems Problem Type SNOMED Code ICD Code Onset Dates Problem Status W/U Status Risk Notes Problem Esophageal reflux (173492352) Esophageal reflux (530.81) Active confirmed Problem Colon cancer screening (372471788) Colon cancer screening (V76.51) Active confirmed Problem Right sided abdominal pain (566672913) Right sided abdominal pain (789.00) Active confirmed Plan Of Treatment Future Test Test Name Order Date COLONOSCOPY 08/04/2012 Insurance Providers Payer Name Payer Address Payer Phone Subscriber Number Group Number Insured Name Patient Relationship to Insured Coverage Start Date Coverage End Date [facility] [address] [place] [phone] [id number] STEPHANY LANDEROS Self - patient is the insured Medical (General) History Medical History History ICD Code hypertension Denies NH,DM,CVA,Lung disease,renal dise ase Surgical History Surgery Date(Month/Year) appendectomy
--- NOTE | 2025-03-08 08:13 | A.OFFVIS_ITS ---
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 [employer]ats Required: No Accompanied by: Self / Same As Patient Allergies No Known Drug Allergies Allergy (Unknown, Verified 02/28/25 09:18) UNKNOWN Medication List - Last Reconciled 03/08/25 by Kristopher Martin MD amiodarone 400 mg (2 x 200 mg) PO BID 14 days amiodarone 200 mg PO DAILY amlodipine 10 mg PO DAILY apixaban (Eliquis) 5 mg PO BID 30 days empagliflozin (Jardiance) 10 mg PO DAILY 30 days furosemide 40 mg See Protocol PO BID@0800,1500 30 days glipizide ER 10 mg PO DAILY 90 days insulin glargine (Basaglar KwikPen U-100 Insulin) 75 units subcut BEDTIME metoprolol succinate ER 75 mg (3 x 25 mg) PO DAILY 90 days agveekdh-fvc-yqjow-vit K-lycop 200-60-600 mcg (Men's Multivitamin) 1 tab PO DAILY omeprazole 20 mg PO DAILY@0630 pen needle, diabetic DX: E11.9 As directed one time per day 90 day supply sacubitril-valsartan 49-51 mg (Entresto) 1 tab PO BID 30 days spironolactone 12.5 mg See Protocol PO DAILY 30 days HPI Comments Details: Buck returns for follow-up after recent hospitalization. He was admitted for congestive heart failure symptoms including shortness of breath and leg swelling. Found to be in atrial fibrillation with rapid rate. Echocardiogram with severe LV dysfunction. He was medically optimized and he also underwent transesophageal echocardiogram/cardioversion. Discharged in sinus rhythm. Since that time, he states he is feeling much better. Shortness of breath is improved significantly. [facility] Medical History (Updated 03/08/25 @ 08:21 by Kristopher Martin MD) PAF (paroxysmal atrial fibrillation) Essential hypertension Diabetes type 2, controlled Left ankle pain Surgical History History of surgery History of anterior cruciate ligament surgery History of appendectomy Family History Father Myocardial infarction HTN (hypertension) CVD (cardiovascular disease) Mother CVD (cardiovascular disease) Brother HTN (hypertension) Diabetes mellitus Son Substance abuse in family Social History Household Members: Spouse Housing: Apartment Do you presently have visiting nurse or other home services: No Alcohol intake: current Patient Tobacco Use Status: Never used Tobacco e-Cigarette/Vaping Use: Never Used Second Hand Smoke Exposure: No service: No Current occupational status: retired Cognitive needs: No Hearing needs: No Vision needs: Yes Review of Systems Const Denies chills, Denies fatigue, Denies fever(s), Denies frequent falls, Denies weakness, Denies weight gain and Denies weight loss ENT Denies dizziness Card Denies chest pain, Denies leg edema, Denies lightheadedness, Denies palpitations, Denies dyspnea and Denies dyspnea on exertion Resp Denies cough, Denies dyspnea and Denies dyspnea on exertion GI Denies hematochezia Musc Denies abnormal gait, Denies muscle weakness, Denies numbness, Denies radiating pain into limb and Denies tingling Neuro Denies abnormal gait, Denies dizziness, Denies frequent falls, Denies numbness, Denies tingling and Denies weakness Endo Denies fatigue and Denies palpitations Physical Exam Vital Signs: Last Vital Signs Pulse 54 03/08/25 08:18 BP 130/62 03/08/25 08:18 BMI result Body Mass Index 37.9 Const General: comfortable and no acute distress Orientation/consciousness: patient oriented x3 HEENT Other: Unremarkable Head: Yes normal to inspection Neck Neck: Yes normal visual inspection Chest Chest palpation & inspection: normal inspection of the chest Resp Auscultation: clear to auscultation bilaterally Cardio Palpation: normal PMI Heart sounds: S1 normal heart sound present, S2 normal heart sound present, no gallops, no murmurs and no rubs GI Palpation (GI): Soft to palpation Back/Spine/Pelvis Other: unremarkable Skin General skin exam: no rashes or lesions noted Neuro General: patient oriented x3 Extrem General: Yes normal to inspection Psych Mental Status: mental status grossly normal Office Procedures EKG Details: EKG with sinus bradycardia at 54/Min; leftward axis; mild WA prolongation to 214 millisecond; cannot exclude old anterior infarct but could be from body habitus; [place] [id number], Complete Assessment & Plan Assessment & Plan (1) PAF (paroxysmal atrial fibrillation): Code(s): I48.0 - Paroxysmal atrial fibrillation Category: Medical Plan: Status post CARIE/cardioversion. Currently on amiodarone. We will get a Holter monitor for further evaluation. He is pending sleep study. Discussed about weight loss and alcohol use. Refer to EP for consideration of ablation. (2) Cardiomyopathy: Code(s): I42.9 - Cardiomyopathy, unspecified Category: Medical Plan: In the echocardiogram, LVEF was 16%. Could be tachycardia induced cardiomyopathy. Not clear if he has got any underlying coronary disease as well. Repeat echocardiogram to reassess LVEF. Obtain coronary CTA for CAD assessment. For meds, he is on metoprolol, Entresto, furosemide, Jardiance. He can also do cardiac rehabilitation. Plan Discussion Notes During the consultation, I discussed with the patient the importance of monitoring his heart rhythm and the potential need for ablation therapy to manage atrial fibrillation. We reviewed the necessity of a CT scan to evaluate for coronary artery disease and the role of sleep apnea in his cardiac health. I emphasized the benefits of cardiac rehabilitation and the need to cease alcohol consumption to improve his overall cardiac function. Patient was informed and verbally consented to the use of an ambient scribe for clinic note documentation during this visit. Total time spent including review of data, counseling, documentation coordination of care-47 m. Orders: Orders CT Cardiac Coronary Angio Today I25.10 - Atherosclerotic heart disease of mechoopda coronary artery without angina pectoris, I42.9 - Cardiomyopathy, unspecified Basic Metabolic Panel Today I42.9 - Cardiomyopathy, unspecified, I50.9 - Heart failure, unspecified CA echo transthoracic complete Today I42.9 - Cardiomyopathy, unspecified ECG 3 day holter monitor Today I48.0 - Paroxysmal atrial fibrillation Cardiac Rehab Today I50.9 - Heart failure, unspecified NT Pro B Type Natriuretic Pept Today I42.9 - Cardiomyopathy, unspecified, I50.9 - Heart failure, unspecified Referrals Cardiac Electrophysiology Referral I48.0 - Paroxysmal atrial fibrillation Patient Instructions: - Use the provided heart monitor at home as instructed. - Attend all scheduled appointments, including the CT scan and sleep apnea evaluation. - Participate in cardiac rehabilitation as recommended. - Avoid alcohol consumption to improve heart health. Coding Level of Care Code Est Pt Level 5 (97596) Complex EM visit Add On G2211 Diagnoses PAF (paroxysmal atrial fibrillation) I48.0 Cardiomyopathy I42.9 CPT Codes EKG - CPT: 13706-[id number], Complete ([id number])
[2025-03-08 08:18] VITALS: BP 130/62; PULSE 54; BMI 37.9
== END 2025-03-08 08:35 | disposition home or self-care (01) ==
LOC: HO.HCS 08:05
PROVIDERS: PCP Family Medicine; Visit Provider Internal Medicine
DX: I48.0 Paroxysmal atrial fibrillation (principal); I42.9 Cardiomyopathy, unspecified
CPT/HCPCS: 93010; 99215

== ENCOUNTER → 2025-03-08 08:04 | Outpatient (BNVA) | payer MEDICARE, SELFPAY | PROVIDERS: PCP Family Medicine; Visit Provider Internal Medicine | DX: I48.0 Paroxysmal atrial fibrillation (principal); I42.9 Cardiomyopathy, unspecified; Z98.890 Other specified postprocedural states | CPT/HCPCS: 93005; 99212 ==

== ENCOUNTER 2025-03-27 09:35 | Outpatient (REF) | payer MEDICARE, SELFPAY ==
--- OUTSIDE RECORDS SUMMARY | 2025-03-27 10:50 | XMS_ITS | Patient Health Record ---
Author Organization [facility] Address [address] [place] [address] Care Team Providers Care Independent Distributor Name Role Phone Ester TREJO, [place] Primary Care Provider Fuentes Arias Jr [phone] Reason For Referral No Information Medications Medication SIG (Take, Route, Fr equency, Duration) Notes Start Date End Date Status MoviPrep 100 GM as directed before c olonoscopy Orally; Duration: 1 dose 08/04/2012 05/24/2024 Active Lisinopril 20MG 05/24/2024 05/24/2024 Ac tive Problems Problem Type SNOMED Code ICD Code Onset Dates Problem Status W/U Status Risk Notes Problem Esophageal reflux (741128632) Esophageal reflux (530.81) Active confirmed Problem Colon cancer screening (364648113) Colon cancer screening (V76.51) Active confirmed Problem Right sided abdominal pain (008004023) Right sided abdominal pain (789.00) Active confirmed Plan Of Treatment Future Test Test Name Order Date COLONOSCOPY 08/04/2012 Insurance Providers Payer Name Payer Address Payer Phone Subscriber Number Group Number Insured Name Patient Relationship to Insured Coverage Start Date Coverage End Date [facility] [address] [place] [phone] [id number] STEPHANY LANDEROS Self - patient is the insured Medical (General) History Medical History History ICD Code hypertension Denies [place],DM,CVA,Lung disease,renal dise ase Surgical History Surgery Date(Month/Year) appendectomy
[2025-03-27 10:53] LABS: NT Pro B Type Natriuretic Pept 460.3 pg/mL (<300)
[2025-03-27 10:57] LABS: Anion Gap 14 (12-20); Blood Urea Nitrogen 16 mg/dL (9-16); Calcium 9.0 mg/dL (8.4-10.2); Carbon Dioxide 27 mmol/L (22-29); Chloride 105 mmol/L (96-108); Estimated Glomerular Filt Rate > 60; Potassium 4.1 mmol/L (3.3-5.1); Sodium 142 mmol/L (135-145)
== END 2025-03-27 09:36 | disposition home or self-care (01) ==
LOC: HO.LAB 09:35
PROVIDERS: PCP Family Medicine; Visit Provider Internal Medicine
DX: I50.9 Heart failure, unspecified (principal); I42.9 Cardiomyopathy, unspecified
CPT/HCPCS: 36415; 80048; 83880

== ENCOUNTER 2025-03-28 10:23 | Outpatient (AMB) | payer MEDICARE, SELFPAY ==
--- NOTE | 2025-03-28 10:59 | A.OFFPC_ITS ---
Vital Signs 03/28/25 11:04 Height 6 ft 2 in Weight 295 lb 8 oz BMI 37.9 BP 120/80 Blood Pressure Location Lt brachial Position Sitting Respiration 16 Pulse 53 Pulse Source Pulse Oximeter Temp 98.5 F Temp Source Oral Pulse Oximetry (%) 95 Oxygen Delivery Method Room Air Intake Visit Reasons: f/u AFib, chronic conditions Intake Note: patient is scheduled to follow up for a-fib and chronic conditions. 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 Blood pressure today 120/80, 53p. He is on Entresto, spironolactone 12.5mg, metoprolol 75mg daily, amlodipine 10mg daily. Followed by Cardiology for paroxysmal AFib. He is on amiodarone. [facility] Medical History (Updated 03/08/25 @ 08:21 by Kristopher Martin MD) PAF (paroxysmal atrial fibrillation) Essential hypertension Diabetes type 2, controlled Left ankle pain Surgical History History of surgery History of anterior cruciate ligament surgery History of appendectomy Family History Father Myocardial infarction HTN (hypertension) CVD (cardiovascular disease) Mother CVD (cardiovascular disease) Brother HTN (hypertension) Diabetes mellitus Son Substance abuse in family Social History Household Members: Spouse Housing: Apartment Do you presently have visiting nurse or other home services: No Alcohol intake: current Patient Tobacco Use Status: Never used Tobacco e-Cigarette/Vaping Use: Never Used Second Hand Smoke Exposure: No service: No Current occupational status: retired Cognitive needs: No Hearing needs: No Vision needs: Yes Questionnaire PHQ-9 Over the last 2 weeks, how often have you been bothered by any of the following problems? 3. Trouble falling or staying asleep, or sleeping too much: not at all Source: Developed by Drs. Alexis Morel, Ray Whittington and colleagues, with an educational bruno from [employer]. Thrive Questionnaire Date Thrive assessed: 06/30/24 I am a: Patient What is your living situation today?: I choose not to answer this question Within the past 12 months, did the food you bought not last and you didn't have the money to get more?: I choose not to answer this question Within the past 12 months, did you worry whether your food would run out before you got money to buy more?: I choose not to answer this question Do you have trouble paying for medicines?: I choose not to answer this question Do you have trouble getting transportation to medical appointments?: I choose not to answer this question Do you have trouble paying your heating and electricity bill?: I choose not to answer this question Do you have trouble taking care of your child, family member or friend?: I choose not to answer this question Do you have trouble with day-to-day activities such as bathing, preparing meals, shopping, managing finances, etc.?: I choose not to answer this question Are you currently unemployed and looking for a job?: I choose not to answer this question Are you interested in more education?: I choose not to answer this question Please select the resources that you would like help with: None Currently or been in a relationship where the following occur: I choose not to answer THRIVE Score: 0 SANG-7 AMB Questionnaire SANG-7 Date SANG - 7 assessed: 01/23/25 Source: Developed by Drs. Alexis Morel, Selma Redman, Ray Villanueva and colleagues, with an educational bruno from [employer]. Review of Systems Const Denies chills, Denies fatigue, Denies fever(s), Denies headache(s) and Denies weakness ENT Denies dizziness and Denies headache(s) Card Denies dyspnea Resp Denies cough, Denies dyspnea, Denies wheezing and Denies other (shortness of breath) Musc Denies numbness and Denies tingling Neuro Denies dizziness, Denies headache(s), Denies numbness, Denies tingling and Denies weakness Psych Denies anxiety and Denies depression Endo Denies fatigue Aller/Immun Denies wheezing Physical exam (Primary Care) Vital Signs: Last Vital Signs Temp 98.5 F 03/28/25 11:04 Pulse 53 03/28/25 11:04 Resp 16 03/28/25 11:04 BP 120/80 03/28/25 11:04 Pulse Ox 95 03/28/25 11:04 Oxygen Delivery Method Room Air 03/28/25 11:04 BMI result Body Mass Index 37.9 Tobacco/Smoking Status: Tobacco use Status Tobacco use date assessed 02/28/25 03/28/25 11:01 Patient Tobacco Use Status Never used Tobacco 03/28/25 11:01 e-Cigarette/Vaping Use Never Used 03/28/25 11:01 Thrive Assessment: Date of Thrive Assessment Date Thrive assessed 06/30/24 03/28/25 11:01 Currently or been in a relationship where the following occur: I choose not to answer Const General: well developed; No acute distress Nutritional Appearance: well nourished Orientation/consciousness: patient oriented x3 HENMT Head: Yes normocephalic and Yes atraumatic Eyes General: appearance normal, both eyes and all related structures Pupils: Equal, round and reactive pupils present EOM: EOMs intact bilaterally Resp Effort & Inspection: normal respiratory effort Neuro General: patient oriented x3 and gait normal Cranial nerves: Yes Equal, round and reactive pupils present Psych Affect: normal affect Coding Level of Care Code Est Pt Level 4 (54005) Diagnoses Essential hypertension I10 PAF (paroxysmal atrial fibrillation) I48.0 HFrEF (heart failure with reduced ejection fraction) I50.20 Sleep apnea G47.30 Assessment & Plan Assessment & Plan (1) Essential hypertension: Code(s): I10 - Essential (primary) hypertension Category: Medical Plan: Blood pressure is controlled. Goal is less than 140/90 Continue current medication (2) PAF (paroxysmal atrial fibrillation): Code(s): I48.0 - Paroxysmal atrial fibrillation Category: Medical Plan: Ongoing issues with paroxysmal atrial fibrillation. Patient is in regular rhythm today. He is on amiodarone and Eliquis. Followed by cardiology and EP. They have an ablation scheduled. (3) HFrEF (heart failure with reduced ejection fraction): Code(s): I50.20 - Unspecified systolic (congestive) heart failure Category: Medical Plan: Recent echocardiogram showed ejection fraction of 16%. He has new echocardiogram ordered to evaluate. He is on Entresto, spironolactone and low-dose beta-dima. Also on Jardiance. (4) Sleep apnea: Code(s): G47.30 - Sleep apnea, unspecified Category: Medical Plan: Patient has appointment scheduled next month however it is the day before his ablation. He will call them to try to get this scheduled sooner.
[2025-03-28 11:04] VITALS: BP 120/80; PULSE 53; RESP 16; TEMP 36.9; O2SAT 95; BMI 37.9
--- OUTSIDE RECORDS SUMMARY | 2025-03-28 12:08 | XMS_ITS | Patient Health Record ---
Author Organization [facility] Address [address] [place] [address] Care Team Providers Care Coffee Supervisor Name Role Phone Ester TREJO, [place] Primary [...] W/U Status Risk Notes Problem Esophageal reflux (029414237) Esophageal reflux (530.81) Active confirmed Problem Colon cancer screening (926867239) Colon cancer screening (V76.51) Active confirmed Problem Right sided abdominal pain (378598353) Right sided abdominal pain (789.00) Active confirmed Plan Of Treatment Future Test Test Name Order Date COLONOSCOPY 08/04/2012 Insurance Providers Payer Name Payer Address Payer Phone Subscriber Number Group Number Insured Name Patient Relationship to Insured Coverage Start Date Coverage End Date [facility] [address] [place] [phone] [id number] STEPHANY LANDEROS Self - patient is the insured Medical (General) History Medical History History ICD Code hypertension Denies [place],DM,CVA,Lung disease,renal dise ase Surgical History Surgery Date(Month/Year) appendectomy
== END 2025-03-28 11:29 | disposition home or self-care (01) ==
LOC: HO.HMCFM 10:24
PROVIDERS: PCP Family Medicine; Visit Provider Family Medicine
DX: I10 Essential (primary) hypertension (principal); I48.0 Paroxysmal atrial fibrillation; I50.20 Unspecified systolic (congestive) heart failure; G47.30 Sleep apnea, unspecified

== ENCOUNTER → 2025-03-28 10:23 | Outpatient (BNVA) | payer MEDICARE, SELFPAY | PROVIDERS: PCP Family Medicine; Visit Provider Family Medicine | DX: I11.0 Hypertensive heart disease with heart failure (principal); I50.20 Unspecified systolic (congestive) heart failure; I48.0 Paroxysmal atrial fibrillation; G47.30 Sleep apnea, unspecified | CPT/HCPCS: 99212 ==

== ENCOUNTER → 2025-05-04 10:08 | Outpatient (REF) | payer MEDICARE, SELFPAY | LOC: HO.CARD 10:08 | PROVIDERS: Visit Provider Internal Medicine | DX: I48.0 Paroxysmal atrial fibrillation (principal) | CPT/HCPCS: 93242 ==

== ENCOUNTER → 2025-05-04 10:13 | Outpatient (BNV) | payer MEDICARE, SELFPAY | PROVIDERS: Visit Provider Internal Medicine Cardiovascular Disease | DX: I49.3 Ventricular premature depolarization (principal) | CPT/HCPCS: 93244 ==

== ENCOUNTER → 2025-05-07 09:56 | Outpatient (REF) | payer MEDICARE, SELFPAY | LOC: HO.SL 09:56 | PROVIDERS: PCP Family Medicine; Visit Provider Physician Assistant Medical | DX: G47.19 Other hypersomnia (principal); G47.33 Obstructive sleep apnea (adult) (pediatric) | CPT/HCPCS: 95806 ==

== ENCOUNTER → 2025-05-07 10:20 | Outpatient (BNV) | payer MEDICARE, SELFPAY | PROVIDERS: PCP Family Medicine; Visit Provider Psychiatry & Neurology Neurology | DX: G47.33 Obstructive sleep apnea (adult) (pediatric) (principal) | CPT/HCPCS: 95806 ==